=== PATIENT | male | born 1965 | race Caucasian/White ===

== ENCOUNTER 2017-01-03 16:20 | Emergency (ER) | payer OTHER ==
[~2017-01-03] VITALS: Ht 175.3 cm; Wt 77.1 kg
[~2017-01-03 16:20] MED LIST: ABIL5TAB OR; AMBI10TA OR; AMLO10TA PO; DEPA1TAB3 PO; DEPA250C OR; DEPA500T OR; DEPA500T2 OR; DEPAKOTE ER PO; DIAZ10TA2 OR; DOCU10CA PO; EFFE37.527 OR; FLEXERIL; FLUV1INJ6 IM; HCTZ PO; HTCZ; IBUP600T26 PO; KLON1TAB OR; LEVA500T PO; LISI10TA4 OR; LYRI200C PO; LYRI300C OR; LYRI75CA OR; NICO21PAT TD; PERC5TAB6 PO; PRIL40CA OR; PROZ10CA7 PO; TRAM50TA2 OR; TRAZ100T OR; TRAZ50TA4 PO; ULTR50TA PO; VALI10TA OR; VALI5TAB OR; VICO5TAB OR
[2017-01-03 16:21] VITALS: BP 153/95
[2017-01-03] MEDS ORDERED: LISI20TA PO (16:32)
[2017-01-03] MEDS ORDERED: METH10CO PO (16:32)
[2017-01-03] MEDS ORDERED: SOMA350T PO ×2 (16:32→17:01)
[2017-01-03] MEDS ORDERED: LYRI300C PO ×2 (16:32→17:01)
[2017-01-04] MEDS ORDERED: DEPA500T2 PO (10:06)
== END 2017-01-03 17:15 | disposition home or self-care (01) ==
LOC: M ED 17:02
DX: Z76.0 Encounter for issue of repeat prescription (principal); F17.210 Nicotine dependence, cigarettes, uncomplicated; Z79.899 Other long term (current) drug therapy

== ENCOUNTER 2017-01-04 05:48 | Emergency (ER) | payer OTHER ==
[~2017-01-04] VITALS: Ht 177.8 cm; Wt 86.2 kg
[~2017-01-04 05:48] MED LIST changes: +LISI20TA PO; +LYRI300C PO; +METH10CO PO; +SOMA350T PO
[2017-01-04] MEDS ORDERED: LORazepam 2 MG/ML VIAL (J2060) IV STA (05:53)
[2017-01-04 06:18] LABS: BASO # 0.1 K/mm3 (0.0-0.2); BASO % 0.8 % (0.0-1.0); EOS # 0.5 K/mm3 (0.0-0.50); EOS % 5.5 % (0.0-3.0); LARGE UNSTAINED CELL # 0.2 K/mm3 (0.0-0.4); LARGE UNSTAINED CELL % 2.1 % (0.0-4.0); LYMPH # 4.2 K/mm3 (1.5-4.5); LYMPH % 45.8 % (24.0-44.0); MEAN CORPUSCULAR HEMOGLOBIN 27.7 pg (27.0-33.0); MEAN CORPUSCULAR VOLUME 83.9 fl (80.0-96.0); MONO # 0.4 K/mm3 (0.0-0.8); MONO % 4.8 % (0.0-5.0); NEUTROPHILS # 3.6 K/mm3 (1.8-7.7); PLATELET COUNT, AUTOMATED 182 k/mm3 (150-450); RED CELL DISTRIBUTION WIDTH 13.8 % (11.5-14.5); WHITE BLOOD COUNT 8.8 K/mm3 (4.0-10.0)
[2017-01-04 06:37] LABS: ANION GAP 8 MEQ/L (8-16); BLOOD UREA NITROGEN 12 MG/DL (7-18); CALCIUM LEVEL 8.6 MG/DL (8.5-10.1); CARBON DIOXIDE LEVEL 27 MEQ/L (21-32); CHLORIDE LEVEL 107 MEQ/L (98-107); CREATININE FOR GFR 0.95 MG/DL (0.70-1.30); GLOMERULAR FILTRATION RATE > 60.0 (>56); GLUCOSE, FASTING 105 MG/DL (70-105); POTASSIUM SERUM 3.5 MEQ/L (3.5-5.1); SODIUM LEVEL 142 MEQ/L (136-145)
[2017-01-04] MEDS ORDERED: VALPROATE SOD INJ 500 MG in D5W 50 ML IV ONE ×2 (08:30→09:15)
--- NOTE | 2017-01-04 08:31 | REP ---
CT Head without contrast HISTORY: Trauma COMPARISON: 08/20/2015 There is no intraparenchymal hemorrhage, acute infarct, mass or midline shift. The ventricular system is normal in appearance. There is no extra cerebral collection. There is no fracture. The visualized sinuses are clear. IMPRESSION: There is no intracranial lesion. Signed by Shree Devries MD 01/04/2017 08:22 A
--- NOTE | 2017-01-04 08:51 | REP ---
CT CERVICAL SPINE WITHOUT CONTRAST: HISTORY: Trauma. There is no acute fracture or subluxation. Disc bulges are present at the C3-4 and C4-5 levels. The patient is status post C5-T1 anterior spinal fusion. A fixation plate and bone graft material are present. Posterior osteophytes are present at the C5-6 and C6-7 levels. There is minimal narrowing of the spinal canal. Uncinate process and/or facet hypertrophy are present at the C3-4 through C7-T1 levels. These findings produce minimal to mild narrowing of the neural foramina. Calcifications are present in the tonsils. This is secondary to previous inflammatory disease. IMPRESSION: 1. The patient is status post C5-T1 anterior spinal fusion. There is anatomic alignment of the cervical spine. 2. There is cervical spondylosis at the C3-4 through C7-T1 levels. Signed by Shree Devries MD 01/04/2017 08:56 A
[2017-01-04] MEDS ORDERED: VALPROATE SOD INJ 500 MG in D5W MINI-BAG PLUS 50 ML IV ONE (09:15)
[2017-01-04 09:46] LABS: METHADONE URINE NEGATIVE (NEGATIVE)
[2017-01-04] MEDS ORDERED: DEPA500T2 PO (10:06)
[2017-01-04 10:38] VITALS: BP 109/70
== END 2017-01-04 10:40 | disposition home or self-care (01) ==
LOC: EDBD 05:48 → M ED 08:10
DX: G40.909 Epilepsy, unspecified, not intractable, without status epilepticus (principal); G89.4 Chronic pain syndrome; F15.10 Other stimulant abuse, uncomplicated; F12.10 Cannabis abuse, uncomplicated; Z79.899 Other long term (current) drug therapy
CPT/HCPCS: 70450; 72125; 80048; 80164; 80306; 83605; 85025; 96374; 99284; J2060

== ENCOUNTER 2017-02-10 11:40 | Observation (INO) | payer OTHER ==
[~2017-02-10] VITALS: Ht 172.7 cm; Wt 90.8 kg
[~2017-02-10 11:40] MED LIST changes: +DEPA500T2 PO; +IBUP-1022 PO; -IBUP600T26 PO; +LEVA1TAB2 PO; -LEVA500T PO; +PERC5TAB12 PO; -PERC5TAB6 PO; +TRAZ50TA11 PO; -TRAZ50TA4 PO; -ULTR50TA PO; +ULTR50TA8 PO
[2017-02-10 12:30] LABS: BASO % 0.5 % (0.0-1.0); EOS # 0.2 K/mm3 (0.0-0.50); EOS % 2.8 % (0.0-3.0); LARGE UNSTAINED CELL # 0.1 K/mm3 (0.0-0.4); LARGE UNSTAINED CELL % 1.9 % (0.0-4.0); LYMPH # 3.2 K/mm3 (1.5-4.5); LYMPH % 42.8 % (24.0-44.0); MEAN CORPUSCULAR HEMOGLOBIN 28.6 pg (27.0-33.0); MEAN CORPUSCULAR HGB CONC 33.6 g/dl (32.0-36.5); MEAN CORPUSCULAR VOLUME 85.3 fl (80.0-96.0); MONO # 0.3 K/mm3 (0.0-0.8); MONO % 4.1 % (0.0-5.0); NEUTROPHILS # 3.5 K/mm3 (1.8-7.7); NEUTROPHILS % 47.8 % (36.0-66.0); PLATELET COUNT, AUTOMATED 262 k/mm3 (150-450); RED CELL DISTRIBUTION WIDTH 13.6 % (11.5-14.5); WHITE BLOOD COUNT 7.4 K/mm3 (4.0-10.0)
[2017-02-10 13:00] LABS: ALBUMIN 3.3 GM/DL (3.2-5.2); ALBUMIN/GLOBULIN RATIO 1.03 (1.00-1.93); ALKALINE PHOSPHATASE 79 U/L (45-117); ALT/SGPT 21 U/L (12-78); ANION GAP 6 MEQ/L (8-16); AST/SGOT 20 U/L (15-37); BILIRUBIN,DIRECT 0.1 MG/DL (0.0-0.2); BILIRUBIN,TOTAL 0.8 MG/DL (0.2-1.0); BLOOD UREA NITROGEN 10 MG/DL (7-18); CALCIUM LEVEL 8.3 MG/DL (8.5-10.1); CARBON DIOXIDE LEVEL 31 MEQ/L (21-32); CHLORIDE LEVEL 103 MEQ/L (98-107); CREATININE FOR GFR 1.26 MG/DL (0.70-1.30); GLOMERULAR FILTRATION RATE > 60.0 (>56); GLUCOSE, FASTING 90 MG/DL (70-105); POTASSIUM SERUM 3.4 MEQ/L (3.5-5.1); SODIUM LEVEL 140 MEQ/L (136-145); TOTAL PROTEIN 6.5 GM/DL (6.4-8.2)
--- NOTE | 2017-02-10 13:35 | REP ---
REASON: Drug overdose. COMPARISON: Multiple latest 11/09/2015. The technique utilized in obtaining the radiograph has magnified the cardiac silhouette and accentuated the interstitial markings. Cardiomediastinal silhouette is unchanged. The lung fox are unchanged. No acute patchy parenchymal opacities or pleural effusions have developed. There is no change in the osseous structures. IMPRESSION: Stable chest without plain radiographic evidence of acute cardiopulmonary disease. Signed by Rome Sandhu DO 02/10/2017 03:23 P
[2017-02-10] MEDS ORDERED: DIVA500T3 PO (18:24)
[2017-02-10] MEDS ORDERED: LYRI300C PO (18:24)
[2017-02-10] MEDS ORDERED: ACETAMINOPHEN TAB 650MG DOSE (2X325MG) PO PRN (18:30)
[2017-02-10] MEDS ORDERED: ONDANSETRON 4MG/2ML VIAL (J2405) IV PRN (18:30)
[2017-02-10 18:53] LABS: METHADONE URINE NEGATIVE (NEGATIVE)
[2017-02-10] MEDS: PANTOPRAZOLE 40MG INJ (PROTONIX) (C9113) IV SCH (19:21)
[2017-02-10] MEDS: KCL 20MEQ in NS 1000ML 1,000 ML IV SCH (19:22)
--- NOTE | 2017-02-10 19:26 | REP ---
CT Head without contrast HISTORY: Altered mental status COMPARISON: 01/04/2017 There is no intraparenchymal hemorrhage, acute infarct, mass or midline shift. The ventricular system is normal in appearance. There is no extra cerebral collection. There is no fracture. The visualized sinuses are clear. IMPRESSION: There is no intracranial lesion. Signed by Shree Devries MD 02/10/2017 07:18 P
[2017-02-10 20:15] VITALS: BP 115/71
--- NOTE | 2017-02-10 20:26 | HPE ---
DATE OF ADMISSION: 02/10/2017 PRIMARY CARE PROVIDER: None listed. CHIEF COMPLAINT: Altered mental status secondary to drug overdose. HISTORY OF PRESENT ILLNESS: Mr. Harris is a 51-year-old male with multiple past medical history including chronic opioid, cannabis and polysubstance abuse who presented to the emergency room (ER) due to experiencing altered mental status secondary to medication. The patient expressed that he had taken about four Soma; however, the patient was not on Soma and based on the ER report, the patient has taken this medication from somebody else. The patient also denied taking any other drugs. According to him, the patient had become more altered mental status, and his mother who lives with him called the ambulance. Due to patient's altered mental status, we have a limited history of present illness. PAST MEDICAL HISTORY: 1. Hypertension. 2. History of seizure disorder. 3. Polysubstance abuse. 4. Depression. 5. History of priapism. 6. Mood disorder. 7. Chronic back pain. 8. History of acute renal failure. 9. History of rhabdomyolysis. 10. History of sepsis. 11. History of pneumonia, possibly secondary to aspiration with interstitial infiltration. 12. History of altered mental status with metabolic encephalopathy. PAST SURGICAL HISTORY: 1. Cervical plate placement. 2. Hernia repair. HOME MEDICATIONS: - divalproex sodium 1000 mg by mouth twice a day - Lyrica 300 mg by mouth three times a day ALLERGIES: NON-STEROIDAL ANTI-INFLAMMATORY DRUGS (NSAIDS). SOCIAL HISTORY: The patient lives with his mother. The patient has three children who are healthy. The patient smoked about a pack for many years. However, the patient does not know how many years. The patient expressed that he drinks occasionally. The patient denies illicit drug use; however, based on the history, the patient has a polysubstance abuse history. FAMILY HISTORY: The patient expressed that he has four brothers who are healthy. The patient's father ; however, the patient does not know what is the reason that he . The patient's mother is healthy. REVIEW OF SYSTEMS: GENERAL: The patient denies fevers, chills, night sweats, weight loss, weight gain. HEENT: The patient denies acute vision or hearing changes. The patient denies problem with chewing food or sinusitis. NECK: The patient denies lumps, bumps or decreased range of motion of his neck. HEART: The patient denies palpitations, racing or skipping heart beats, chest pain. LUNGS: The patient denies shortness of breath or wheezing or coughing. ABDOMEN: The patient denies abdominal pain, nausea, vomiting, diarrhea, constipation, melena, hematochezia, hemoptysis. NEUROLOGIC: The patient denies history of transient ischemic attack (TIA), cerebrovascular accident (CVA) or seizure-type activity. PHYSICAL EXAMINATION: VITAL SIGNS: Temperature 98.3, pulse 81, respiratory rate 12, blood pressure 120/72, pulse oximetry 93% on room air. GENERAL: The patient was awake, alert, but only oriented to place, but not time or person. HEENT: Normocephalic, atraumatic. Pupils are pinpoint. Also, the patient's speech is sluggish. Oral mucosa was moist. NECK: Soft, no lymphadenopathy, no thyromegaly. HEART: Regular rate and rhythm. Normal S1, S2. ABDOMEN: Soft, nontender. Positive bowel sounds in all quadrants. LUNGS: Clear breath sounds bilaterally. Good air movement. EXTREMITIES: No lower extremity edema. Plus two pulses in both lower extremities. The patient has normal range of motion both upper and lower extremities. NEUROLOGIC: Cranial nerves II through XII intact. No focal deficiency. LABORATORY DATA: White blood cells 7.4, red blood cells 4.75, hemoglobin 13.6, hematocrit 40.5, MCV 85.3, MCH 28.6, MCHC 33.6, RDW 13.6, platelet count 262. Neutrophil percentage 47.8, lymphocyte percentage 42.8, monocyte percentage 4.1, eosinophil percentage 2.8, basophil percentage 0.5, leukocyte percentage 1.9. Sodium 140, potassium 3.4, chloride 103, carbon dioxide 31, anion gap 6, BUN 10, creatinine 1.26, GFR greater than 60, fasting glucose 90, calcium 8.3, total bilirubin 0.8, direct bilirubin 0.1, AST 20, ALT 21, alkaline phosphatase 30. Total creatine kinase 313. Total protein 6.5, albumin 3.3. TSH 1.01. Toxicology pending at this time. IMAGING: Chest x-ray shows stable chest without radiological evidence of acute cardiopulmonary disease and it was compared with a chest x-ray which was done on 11/09/2015. ASSESSMENT AND PLAN: 1. Altered mental status. This is possible secondary to Soma however patient has history of polysubstance abuse and the urine tox is pending at this time. ER has contacted poison control who recommended the patient to be observed. At this time, we will make the patient nothing by mouth and start the patient on intravenous (IV) fluids due to possible risk of aspiration. Also, I have ordered a CT of the head without contrast and I have not started the patient on anticoagulation until we get the result from the CT of the head. Also, toxicology is pending at this time. We will continue to monitor patient for any abnormal symptoms. 2. Hypokalemia. At this time, we have started the patient on IV fluids with potassium 20 mEq. We will continue monitoring the patient's potassium level. 3. Elevation of creatinine. This is possibly secondary to dehydration. The patient is on IV fluid. We will continue monitoring the patient's creatinine level. 4. History of seizure disorder. We will continue patient on Keppra 1000 mg by mouth twice a day. 5. Deep venous thrombosis (DVT) prophylaxis. The patient is on thromboembolism deterrent stockings (TEDs) and sequentials until we receive the results for the CT of the head. 6. History of hypertension. At this time, the patient's blood pressure is stable. 7. Chronic back and neck pain. At home the patient is on Lyrica. However, we have stopped Lyrica due to altered mental status. At this time, the patient is stable. We will continue the patient on acetaminophen. 8. Gastrointestinal (GI) prophylaxis. The patient is on Protonix IV. My preceptor for this patient encounter was Dr. Shree Smith. The preceptor was physically present in the building during the encounter and was fully available as needed. All aspects of the patient interview, examination, medical decision making process, and medical care plan development were reviewed and approved by the preceptor. The preceptor is aware and concurs with the plan as stated in the body of this note and will attest to such by his/her co-signature. JOE
[2017-02-10] MEDS: DIVALPROEX 500 MG TAB PO SCH (20:31)
[2017-02-10] MEDS ORDERED: HEPARIN SOD (PORCINE) 5000 UNITS/ML VIAL SC SCH (21:00)
[2017-02-11 00:03] VITALS: BP 116/72
[2017-02-11 04:16] VITALS: BP 124/77
[2017-02-11 06:15] LABS: BASO % 0.6 % (0.0-1.0); EOS # 0.2 K/mm3 (0.0-0.50); EOS % 3.8 % (0.0-3.0); LARGE UNSTAINED CELL # 0.1 K/mm3 (0.0-0.4); LARGE UNSTAINED CELL % 2.5 % (0.0-4.0); LYMPH # 2.4 K/mm3 (1.5-4.5); MEAN CORPUSCULAR HEMOGLOBIN 28.4 pg (27.0-33.0); MEAN CORPUSCULAR HGB CONC 33.4 g/dl (32.0-36.5); MEAN CORPUSCULAR VOLUME 85.3 fl (80.0-96.0); MONO # 0.2 K/mm3 (0.0-0.8); MONO % 4.6 % (0.0-5.0); NEUTROPHILS # 2.3 K/mm3 (1.8-7.7); NEUTROPHILS % 44.5 % (36.0-66.0); PLATELET COUNT, AUTOMATED 226 k/mm3 (150-450); RED CELL DISTRIBUTION WIDTH 13.9 % (11.5-14.5); WHITE BLOOD COUNT 5.2 K/mm3 (4.0-10.0)
[2017-02-11 06:58] LABS: ALBUMIN/GLOBULIN RATIO 0.94 (1.00-1.93); ALKALINE PHOSPHATASE 78 U/L (45-117); ALT/SGPT 17 U/L (12-78); ANION GAP 6 MEQ/L (8-16); AST/SGOT 18 U/L (15-37); BILIRUBIN,TOTAL 0.6 MG/DL (0.2-1.0); BLOOD UREA NITROGEN 7 MG/DL (7-18); CALCIUM LEVEL 8.3 MG/DL (8.5-10.1); CARBON DIOXIDE LEVEL 27 MEQ/L (21-32); CHLORIDE LEVEL 108 MEQ/L (98-107); CREATININE FOR GFR 1.02 MG/DL (0.70-1.30); GLOMERULAR FILTRATION RATE > 60.0 (>56); GLUCOSE, FASTING 92 MG/DL (70-105); MAGNESIUM LEVEL 1.9 MG/DL (1.8-2.4); SODIUM LEVEL 141 MEQ/L (136-145); TOTAL PROTEIN 6.2 GM/DL (6.4-8.2)
[2017-02-11] MEDS: KCL 20MEQ in NS 1000ML 1,000 ML IV SCH (07:04)
--- NOTE | 2017-02-11 07:33 | ECGEPIP ---
Stationary ECG Study [facility] - ED Test Date: 2017-02-10 Pat Name: MAGY RIVAS Department: Room: - Gender: M [employer]: red : 1965 Requested By: CHANDU Walker Order Number: [id number] Reading MD: Marielos Molina Measurements Intervals [place] Rate: 81 P: 22 AL: 152 QRS: 3 QRSD: 98 T: 75 QT: 408 QTc: 475 Interpretive Statements SINUS RHYTHM INFERIOR MYOCARDIAL INFARCTION, PROBABLY OLD NSTTW ABNORMALITY SIMILAR 11/09/15 Electronically Signed On 02-11-2017 7:33:04 EDT by Marielos Molina
[2017-02-11] MEDS: PREGABALIN 100 MG CAP (LYRICA) PO SCH ×3 (09:00→21:18)
[2017-02-11] MEDS: DIVALPROEX 500 MG TAB PO SCH ×2 (09:27→21:17)
[2017-02-11 11:00] VITALS: BP 150/98
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
[2017-02-11 14:00] VITALS: BP 158/98
[2017-02-11] MEDS: NICOTINE 21MG/24HR 1 EA TRANSDERMAL TD SCH (17:21)
[2017-02-11] MEDS: PANTOPRAZOLE 40MG INJ (PROTONIX) (C9113) IV SCH (19:41)
[2017-02-11 22:00] VITALS: BP 125/70
[2017-02-11] MEDS ORDERED: oxyCODONE 5MG TAB PO ONE (23:15)
[2017-02-12 05:44] LABS: BASO % 0.8 % (0.0-1.0); EOS # 0.2 K/mm3 (0.0-0.50); LARGE UNSTAINED CELL # 0.1 K/mm3 (0.0-0.4); LARGE UNSTAINED CELL % 2.1 % (0.0-4.0); LYMPH # 2.2 K/mm3 (1.5-4.5); LYMPH % 38.2 % (24.0-44.0); MEAN CORPUSCULAR HEMOGLOBIN 28.6 pg (27.0-33.0); MEAN CORPUSCULAR HGB CONC 33.5 g/dl (32.0-36.5); MEAN CORPUSCULAR VOLUME 85.4 fl (80.0-96.0); MONO # 0.3 K/mm3 (0.0-0.8); MONO % 5.1 % (0.0-5.0); NEUTROPHILS # 2.7 K/mm3 (1.8-7.7); NEUTROPHILS % 49.7 % (36.0-66.0); PLATELET COUNT, AUTOMATED 241 k/mm3 (150-450); RED CELL DISTRIBUTION WIDTH 13.8 % (11.5-14.5); WHITE BLOOD COUNT 5.5 K/mm3 (4.0-10.0)
[2017-02-12 05:56] LABS: ALBUMIN 2.8 GM/DL (3.2-5.2); ALKALINE PHOSPHATASE 71 U/L (45-117); ALT/SGPT 17 U/L (12-78); ANION GAP 8 MEQ/L (8-16); AST/SGOT 13 U/L (15-37); BILIRUBIN,TOTAL 0.2 MG/DL (0.2-1.0); BLOOD UREA NITROGEN 6 MG/DL (7-18); CALCIUM LEVEL 8.7 MG/DL (8.5-10.1); CARBON DIOXIDE LEVEL 26 MEQ/L (21-32); CHLORIDE LEVEL 110 MEQ/L (98-107); CREATININE FOR GFR 1.04 MG/DL (0.70-1.30); GLOMERULAR FILTRATION RATE > 60.0 (>56); GLUCOSE, FASTING 125 MG/DL (70-105); MAGNESIUM LEVEL 1.9 MG/DL (1.8-2.4); POTASSIUM SERUM 3.7 MEQ/L (3.5-5.1); SODIUM LEVEL 144 MEQ/L (136-145); TOTAL PROTEIN 5.9 GM/DL (6.4-8.2)
[2017-02-12 06:00] VITALS: BP_SYST 125; BP_SYST 174; BP_DIAS 63; BP_DIAS 70
[2017-02-12] MEDS ORDERED: oxyCODONE 5MG TAB PO ONE (06:00)
[2017-02-12] MEDS ORDERED: NORC1TAB4 PO (08:20)
[2017-02-12] MEDS: NICOTINE 21MG/24HR 1 EA TRANSDERMAL TD SCH (10:27)
[2017-02-12] MEDS: DIVALPROEX 500 MG TAB PO SCH (10:27)
[2017-02-12] MEDS: PREGABALIN 100 MG CAP (LYRICA) PO SCH (10:27)
--- NOTE | 2017-02-12 13:55 | DSES ---
DATE OF ADMISSION: 02/10/2017 DATE OF DISCHARGE: 02/12/2017 Primary care provider at the [facility], has not seen any doctor yet and has an appointment for 02/17/2017. DISCHARGE DIAGNOSES: 1. Acute toxic metabolic encephalopathy due to overdose with Soma. 2. Nonsuicidal drug overdose. 3. Polysubstance abuse. Urine toxicology positive for opiate, cocaine, marijuana. 4. Epilepsy. 5. Chronic back pain and neck pain. 7. Hypertension. 8. Mood disorder. 9. Depression. DISCHARGE MEDICATIONS: - divalproex sodium 1000 mg by mouth twice a day - Lyrica 300 mg by mouth three times a day - acetaminophen/hydrocodone 5/325 one tablet by mouth every 6 hours as needed, pain HOSPITAL COURSE: This is a 51-year-old male who recently returned from [place], was down in [place] for 4 months and returned at the end of December. He had gone down there for second evaluation for his back pain and was following with a doctor there. He was getting his pain medications, which was hydrocodone 7.5 mg , six tablets a day, from a doctor in [place]. He came back up in [facility] and ran out of his pain medications. He was seen in the emergency room and he was given his prescription for his divalproex and his Lyrica, and a few pain medications to last him for 3 or 4 days. However, he then ran out of the medications again and he was getting pain medications from his friends and also off the street. He got some Soma from his friend and took 4-5 pills of the Soma to help with the back pain, then was noted to be confused and sedated and was brought to the emergency room. In the emergency department (ED) , Poison Control was contacted and they recommended observation for 6 hours. However, after 6 hours of observation, patient still remained extremely sedated so was admitted to the hospital for observation. Subsequently, patient 's mental status improved within the next 24 hours and he was back to his baseline function and mental status. He complained of back pain and he was given one dose of Percocet, which helped with his pain. I-STOP was checked and it was seen that his last opiate prescription was from 2015. He did have some Soma, Lyrica prescriptions in December and January of this year. When I questioned him in detail regarding his positive opiate screen, he said he had hydrocodone from his [place] doctor, which he was taken, but he run out of it. So he was given a 5 day prescription for hydrocodone to last him until his appointment with his primary care provider on 02/17/2017. At present, his vital signs are stable. He does not have any complaints and he is at his functional baseline. So he is going to be discharged home. PHYSICAL EXAMINATION: VITAL SIGNS: Temperature 97.3, pulse 72, respiratory rate 18, blood pressure 174/63, pulse oximetry 96% on room air. GENERAL: Patient awake, alert, oriented times three, lying down in bed, in no acute distress. HEENT: Normocephalic, atraumatic. Moist mucous membranes. Anicteric eyes. CHEST: Clear to auscultation. CARDIOVASCULAR: S1, S2, regular. No rub, murmur or gallop. ABDOMEN: Soft, nontender. Bowel sounds present. EXTREMITIES: No edema. LABORATORY DATA: WBC 5.5, hemoglobin 13, platelet 241. Sodium 144, potassium 3.7, chloride 110, bicarbonate 26, BUN 6, creatinine 1.04, glucose 125. Liver function tests are normal. Urine toxicology was positive for opiates, cocaine and cannabis. CT head was negative. DISPOSITION: Patient is discharged home in stable condition. DISCHARGE INSTRUCTIONS: Patient to followup with primary care provider on 02/17/2017. Regular diet. Activity as tolerated. MTDD
[2017-07-11] MEDS ORDERED: PERC5TAB12 PO (14:13)
== END 2017-02-12 10:50 | disposition home health service (06) ==
LOC: EDBD 11:40 → EDUNIT# 11:40 → M ED 14:54 → M ED INP 18:46 → M MS5PR 02-11 10:50
PROVIDERS: ADMIT Internal Medicine; ATTEND Internal Medicine Nephrology
DX: T42.8X1A Poisoning by antiparkinsonism drugs and other central muscle-tone depressants, accidental (unintentional), initial encounter (principal); G92 Toxic encephalopathy; Y92.89 Other specified places as the place of occurrence of the external cause; F19.10 Other psychoactive substance abuse, uncomplicated; G40.909 Epilepsy, unspecified, not intractable, without status epilepticus; M54.9 Dorsalgia, unspecified; G89.29 Other chronic pain; E87.6 Hypokalemia; I10 Essential (primary) hypertension; F32.9 Major depressive disorder, single episode, unspecified; Z79.899 Other long term (current) drug therapy; Z88.8 Allergy status to other drugs, medicaments and biological substances; F17.210 Nicotine dependence, cigarettes, uncomplicated; Z86.19 Personal history of other infectious and parasitic diseases

== ENCOUNTER 2017-02-22 08:57 | Emergency (ER) | payer OTHER ==
[~2017-02-22] VITALS: Ht 175.3 cm; Wt 194.0 kg
[~2017-02-22 08:57] MED LIST changes: +DIVA500T3 PO; -IBUP-1022 PO; +IBUP600T26 PO; -LEVA1TAB2 PO; +LEVA500T PO; +NORC1TAB4 PO; -PERC5TAB12 PO; +PERC5TAB6 PO; -TRAZ50TA11 PO; +TRAZ50TA4 PO; +ULTR50TA PO; -ULTR50TA8 PO
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
[2017-02-22 11:10] LABS: BASO # 0.1 K/mm3 (0.0-0.2); BASO % 0.9 % (0.0-1.0); EOS # 0.2 K/mm3 (0.0-0.50); EOS % 2.6 % (0.0-3.0); LARGE UNSTAINED CELL # 0.2 K/mm3 (0.0-0.4); LARGE UNSTAINED CELL % 2.1 % (0.0-4.0); LYMPH # 2.4 K/mm3 (1.5-4.5); LYMPH % 29.1 % (24.0-44.0); MEAN CORPUSCULAR HEMOGLOBIN 28.9 pg (27.0-33.0); MEAN CORPUSCULAR HGB CONC 33.5 g/dl (32.0-36.5); MEAN CORPUSCULAR VOLUME 86.3 fl (80.0-96.0); MONO # 0.4 K/mm3 (0.0-0.8); MONO % 4.6 % (0.0-5.0); NEUTROPHILS % 60.7 % (36.0-66.0); PLATELET COUNT, AUTOMATED 256 k/mm3 (150-450); RED CELL DISTRIBUTION WIDTH 13.7 % (11.5-14.5); WHITE BLOOD COUNT 8.3 K/mm3 (4.0-10.0)
[2017-02-22 11:40] LABS: ANION GAP 4 MEQ/L (8-16); BLOOD UREA NITROGEN 5 MG/DL (7-18); CALCIUM LEVEL 9.1 MG/DL (8.5-10.1); CARBON DIOXIDE LEVEL 29 MEQ/L (21-32); CHLORIDE LEVEL 110 MEQ/L (98-107); CREATININE FOR GFR 0.89 MG/DL (0.70-1.30); GLOMERULAR FILTRATION RATE > 60.0 (>56); GLUCOSE, FASTING 106 MG/DL (70-105); METHADONE URINE NEGATIVE (NEGATIVE); POTASSIUM SERUM 3.9 MEQ/L (3.5-5.1); SODIUM LEVEL 143 MEQ/L (136-145)
[2017-02-22] MEDS ORDERED: DIVALPROEX 500 MG TAB PO ONE (12:30)
[2017-02-22] MEDS ORDERED: PREGABALIN 100 MG CAP (LYRICA) PO ONE (12:30)
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
[2017-02-22 13:03] VITALS: BP 191/113
[2017-02-22] MEDS ORDERED: LISI20TA PO (23:23)
[2017-02-23] MEDS ORDERED: NORC1TAB4 PO (02:50)
== END 2017-02-22 13:04 | disposition home or self-care (01) ==
LOC: M ED 09:46
DX: Z76.0 Encounter for issue of repeat prescription (principal); R25.8 Other abnormal involuntary movements; T42.0X6A Underdosing of hydantoin derivatives, initial encounter; M54.9 Dorsalgia, unspecified; G40.909 Epilepsy, unspecified, not intractable, without status epilepticus; I10 Essential (primary) hypertension; F41.9 Anxiety disorder, unspecified; F32.9 Major depressive disorder, single episode, unspecified; R51 Headache; N48.30 Priapism, unspecified; F17.200 Nicotine dependence, unspecified, uncomplicated

== ENCOUNTER 2017-02-22 23:00 | Inpatient (IN) | payer OTHER ==
[~2017-02-22] VITALS: Ht 175.3 cm; Wt 92.1 kg
[2017-02-22] MEDS ORDERED: LISI20TA PO (23:23)
[2017-02-22 23:57] LABS: MEAN CORPUSCULAR HEMOGLOBIN 28.9 pg (27.0-33.0); MEAN CORPUSCULAR HGB CONC 34.5 g/dl (32.0-36.5); RED CELL DISTRIBUTION WIDTH 13.7 % (11.5-14.5)
[2017-02-23 00:27] LABS: METHADONE URINE NEGATIVE (NEGATIVE)
[2017-02-23 00:36] LABS: ALBUMIN 3.5 GM/DL (3.2-5.2); ALBUMIN/GLOBULIN RATIO 1.13 (1.00-1.93); ALKALINE PHOSPHATASE 80 U/L (45-117); ALT/SGPT 22 U/L (12-78); ANION GAP 8 MEQ/L (8-16); AST/SGOT 17 U/L (15-37); BILIRUBIN,DIRECT < 0.1 MG/DL (0.0-0.2); BILIRUBIN,TOTAL 0.3 MG/DL (0.2-1.0); BLOOD UREA NITROGEN 9 MG/DL (7-18); CALCIUM LEVEL 8.5 MG/DL (8.5-10.1); CARBON DIOXIDE LEVEL 27 MEQ/L (21-32); CHLORIDE LEVEL 109 MEQ/L (98-107); GLOMERULAR FILTRATION RATE > 60.0 (>56); GLUCOSE, FASTING 120 MG/DL (70-105); POTASSIUM SERUM 3.9 MEQ/L (3.5-5.1); SODIUM LEVEL 144 MEQ/L (136-145); TOTAL PROTEIN 6.6 GM/DL (6.4-8.2)
[2017-02-23] MEDS ORDERED: MOM 30ML SUSPENSION UDC PO PRN (02:30)
[2017-02-23] MEDS ORDERED: MAALOX 30 ML SUSP *UDC PO PRN (02:30)
[2017-02-23] MEDS ORDERED: NORC1TAB4 PO (02:50)
[2017-02-23] MEDS ORDERED: NORCO, ANEXSIA 5/325MG TABLET (HYDROcodone/ACETAMINOPHEN) PO ONE (03:00)
[2017-02-23 03:11] VITALS: BP 147/96
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
[2017-02-23] MEDS: hydroCHLOROthiazide 12.5 MG CAPSULE PO SCH (10:34)
[2017-02-23] MEDS: PREGABALIN 100 MG CAP (LYRICA) PO SCH ×3 (10:35→21:40)
[2017-02-23] MEDS: DIVALPROEX 500 MG TAB PO SCH ×2 (10:35→21:40)
[2017-02-23] MEDS: NICOTINE 21MG/24HR 1 EA TRANSDERMAL TD SCH (10:35)
[2017-02-23] MEDS: SERTRALINE HCL 50 MG TAB PO SCH (11:52)
[2017-02-23 18:00] VITALS: BP 130/78
[2017-02-23] MEDS: ACETAMINOPHEN TAB 650MG DOSE (2X325MG) PO PRN (19:07)
--- NOTE | 2017-02-23 20:36 | MHHPE ---
DATE OF ADMISSION: 02/23/2017 LEGAL STATUS ON ADMISSION: 9.39 legal status. CHIEF COMPLAINT: "I have been feeling very depressed and I have suicidal thoughts." HISTORY OF PRESENT ILLNESS: 51-year-old male with a history of depression and polysubstance dependency, admitted to our unit on a 9.39 legal status. According to the chart, the patient states that he has been feeling very depressed and was thinking about overdosing. The patient has a history of severe overdose in the past. He reported to the emergency room that he went to [place] to seek help for his pain and since he has returned he has been homeless. He states that he cannot comply with the [facility] requirements, that [facility] placed him a hotel outside town and wanted him to report daily and that he has no transportation and has not been able to follow through. His mother has been helping him staying a few days, but he stated, "she is not supposed to do so." The patient also reported that he has been without food for four days. The patient was unable to contract for safety and as above, he was thinking about overdosing. During the interview today, the patient is cooperative during the interview. The patient reports feeling depressed with low energy, feeling hopeless and helpless and having suicidal thoughts. There is no evidence of psychotic symptoms. No auditory or visual hallucinations or delusions. The patient is requesting to have medication for pain. PAST MEDICAL HISTORY: Back pain status post reconstructive surgery. PAST PSYCHIATRIC HISTORY: As above, the patient has been diagnosed with depression. Has a history of severe overdose in the past. History of polysubstance dependency. FAMILY HISTORY: Noncontributory. SOCIAL HISTORY: The patient was born in [place]. He was raised in [place] by his parents. He is the oldest of seven brothers. He dropped out of school in the 11th grade. 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 Has no history of physical or sexual abuse. SUBSTANCE ABUSE HISTORY: The patient has a history of polysubstance abuse, including opiates, cocaine and cannabinoids. REVIEW OF SYSTEMS: CONSTITUTIONAL: No weight loss, fever, chills, weakness or fatigue. HEENT: No visual loss, blurry vision, double vision or yellow sclerae. No hearing loss, sneezing, congestion, runny nose or sore throat. SKIN: No rash or itching. CARDIOVASCULAR: No chest pain, chest pressure, chest discomfort, palpitations, or edema. RESPIRATORY: No shortness of breath, cough or sputum. GASTROINTESTINAL: No anorexia, nausea, vomiting, or diarrhea. No abdominal pain or blood. GENITOURINARY: No burning or pain on urination. NEUROLOGIC: No headaches, dizziness, syncope, paralysis, ataxia, numbness or tingling. MUSCULOSKELETAL: No muscle, back pain, joint pain or stiffness. HEMATOLOGIC: No anemia, bleeding or bruising. LYMPHATICS: No history of splenectomy. ENDOCRINOLOGIC: No reports of sweating, cold or heat intolerance. No polyuria or polydipsia. ALLERGIES: No history of asthma, hives, eczema or rhinitis. PHYSICAL EXAMINATION: As per physician's human resources assistant. LABORATORY DATA: At admission: Complete blood count (CBC) shows a hemoglobin of 13.4, hematocrit of 38.8. CMP is unremarkable. TSH within normal limits. UDS was positive for cannabis. Blood alcohol level is negative. MENTAL STATUS EXAMINATION: The patient is dressed in [facility]. The patient is cooperative during the interview. Speech is soft and monotone. Has poor eye contact. Mood is depressed and anxious. Affect is restricted. The patient is oriented to time, place, person and situation. Maintains attention and concentration correctly. Instant recall, recent and remote memory are intact. Thought processes are coherent, logical and goal directed. The patient does not have auditory or visual hallucinations. The patient does not have paranoid, persecutory, somatic, grandiose or synagogue delusions. The patient reports suicidal ideation. Denies homicidal thoughts. Judgment and insight are limited. DIAGNOSES: AXIS I: Unspecified depressive disorder. Rule out major depressive disorder. Rule out substance induced mood disorder. Polysubstance dependency by history. AXIS II: Deferred. AXIS III: Grand mal seizures and chronic pain. INITIAL TREATMENT PLAN: Patient was admitted on a 9.39 legal status. Complete history was obtained. With his permission, family will be contacted, and database will be expanded. His medication regimen will be reviewed and changed accordingly. He will be provided with protected environment. He will be treated with individual, group, and milieu therapies. He will also receive supportive psychoeducation. Discharge planning will commence immediately. Length of stay will be between 7 to 10 days. Outpatient followup will be strongly recommended. The treatment plan will focus initially on depression, risk for suicide and substance abuse.
[2017-02-23] MEDS: LISINOPRIL 20 MG TAB PO SCH (21:40)
[2017-02-23] MEDS: traZODone 50 MG TAB PO PRN (23:07)
[2017-02-24 06:42] VITALS: BP 133/96
[2017-02-24] MEDS: DIVALPROEX 500 MG TAB PO SCH ×2 (08:44→21:22)
[2017-02-24] MEDS: PREGABALIN 100 MG CAP (LYRICA) PO SCH ×3 (08:44→21:22)
[2017-02-24] MEDS: SERTRALINE HCL 50 MG TAB PO SCH (08:44)
[2017-02-24] MEDS: hydroCHLOROthiazide 12.5 MG CAPSULE PO SCH (08:44)
[2017-02-24] MEDS: NICOTINE 21MG/24HR 1 EA TRANSDERMAL TD SCH (08:45)
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
[2017-02-24] MEDS: ACETAMINOPHEN TAB 650MG DOSE (2X325MG) PO PRN (16:10)
[2017-02-24 18:00] VITALS: BP 134/73
[2017-02-24] MEDS: LISINOPRIL 20 MG TAB PO SCH (21:23)
[2017-02-24] MEDS: traZODone 50 MG TAB PO PRN (22:24)
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
[2017-02-25 06:36] VITALS: BP 133/74
[2017-02-25] MEDS: SERTRALINE HCL 50 MG TAB PO SCH (09:08)
[2017-02-25] MEDS: NICOTINE 21MG/24HR 1 EA TRANSDERMAL TD SCH (09:08)
[2017-02-25] MEDS: PREGABALIN 100 MG CAP (LYRICA) PO SCH ×3 (09:08→21:58)
[2017-02-25] MEDS: hydroCHLOROthiazide 12.5 MG CAPSULE PO SCH (09:08)
[2017-02-25] MEDS: DIVALPROEX 500 MG TAB PO SCH ×2 (09:09→21:58)
[2017-02-25] MEDS: ACETAMINOPHEN TAB 650MG DOSE (2X325MG) PO PRN (15:49)
[2017-02-25 18:12] VITALS: BP 138/66
[2017-02-25] MEDS: LISINOPRIL 20 MG TAB PO SCH (21:58)
[2017-02-25] MEDS: traZODone 50 MG TAB PO PRN (23:03)
[2017-02-26 06:29] VITALS: BP 138/70
--- NOTE | 2017-02-26 07:35 | IPN ---
DATE: 02/25/2017 A 51-year-old male with a history of depression and polysubstance dependency, admitted for depression and suicidal ideation. The patient was planning to overdose. SUBJECTIVE: "I have a lot of pain." OBJECTIVE: No major changes. The patient reports feeling depressed because of his pain. Pain clinic has given recommendation and does not recommend the use of opiates. The patient does not have auditory or visual hallucinations or delusions. The patient is able to contract for safety while in the hospital. MENTAL STATUS EXAMINATION: The patient is dressed in [facility]. The patient is calm and cooperative, has poor eye contact. Speech is slow and monotone. Mood is depressed and anxious. Affect is restricted. No evidence of delusions or hallucinations. Memory, attention and concentration are fair. The patient is able to contract for safety while in the hospital. Insight and judgment is limited. ASSESSMENT: 1. Depression. 2. Suicidal ideation. 3. Polysubstance dependency. PLAN: 1. Continue with Depakote 1000 mg by mouth twice a day. 2. Continue with Zoloft 50 mg by mouth every morning. 3. Continue with trazodone 50 mg by mouth nightly as needed for insomnia. 4. Continue medication management, individual and group therapy.
[2017-02-26] MEDS: DIVALPROEX 500 MG TAB PO SCH ×2 (08:21→21:32)
[2017-02-26] MEDS: NICOTINE 21MG/24HR 1 EA TRANSDERMAL TD SCH (08:21)
[2017-02-26] MEDS: SERTRALINE HCL 50 MG TAB PO SCH (08:21)
[2017-02-26] MEDS: PREGABALIN 100 MG CAP (LYRICA) PO SCH ×3 (08:21→21:31)
[2017-02-26] MEDS: hydroCHLOROthiazide 12.5 MG CAPSULE PO SCH (08:21)
[2017-02-26 09:23] VITALS: BP 138/70
[2017-02-26] MEDS: ACETAMINOPHEN TAB 650MG DOSE (2X325MG) PO PRN (13:21)
[2017-02-26] MEDS ORDERED: ANALGESIC BALM CRM 120 GM TOP PRN (16:00)
[2017-02-26 18:00] VITALS: BP 133/83
--- NOTE | 2017-02-26 18:24 | IPN ---
DATE: 02/26/2017 51-year-old male with history of depression and polysubstance dependency admitted for depression and suicidal ideation. Patient was planning to overdose. SUBJECTIVE: "I'm not better." OBJECTIVE: Patient reports depression and complains of significant pain. Patient appears frustrated with the decision of the pain clinic. Patient does not have auditory or visual hallucinations or delusions. Patient interacts minimally with other patients and has tendency to stay in his room. MENTAL STATUS EXAMINATION: Patient is dressed in [facility]. Patient is cooperative, has poor eye contact. His speech is slow and monotone. Patient is depressed. Affect is restricted. No evidence of delusions or hallucinations. Memory, attention, and concentration are fair. Patient is able to contract for safety during his hospitalization. Insight and judgment is limited. ASSESSMENT: 1. Depression. 2. Suicidal ideation. 3. Polysubstance dependency. PLAN: 1. Continue Depakote 1000 mg by mouth twice a day. 2. Continue with Zoloft 50 mg by mouth every morning. 3. Continue with trazodone 50 mg by mouth nightly as needed for insomnia. 4. Continue medication management, individual and group therapy.
[2017-02-26] MEDS: traZODone 50 MG TAB PO PRN (21:31)
[2017-02-26 21:32] VITALS: BP 157/85
[2017-02-26] MEDS: LISINOPRIL 20 MG TAB PO SCH (21:32)
[2017-02-26 21:35] VITALS: BP 157/85
[2017-02-27 07:06] VITALS: BP 157/85
[2017-02-27] MEDS: DIVALPROEX 500 MG TAB PO SCH (08:20)
[2017-02-27] MEDS: hydroCHLOROthiazide 12.5 MG CAPSULE PO SCH (08:20)
[2017-02-27] MEDS: SERTRALINE HCL 50 MG TAB PO SCH (08:20)
[2017-02-27] MEDS: PREGABALIN 100 MG CAP (LYRICA) PO SCH (08:20)
[2017-02-27] MEDS: ACETAMINOPHEN TAB 650MG DOSE (2X325MG) PO PRN (08:21)
[2017-02-27] MEDS: NICOTINE 21MG/24HR 1 EA TRANSDERMAL TD SCH (08:21)
[2017-02-27] MEDS ORDERED: LISI-538 PO (10:46)
[2017-02-27] MEDS ORDERED: HYDR12CA PO (10:46)
[2017-02-27] MEDS ORDERED: SERT50TA PO (10:46)
--- NOTE | 2017-02-28 07:59 | MHDS ---
DATE OF ADMISSION: 02/23/2017 DATE OF DISCHARGE: 02/27/2017 LEGAL STATUS AT ADMISSION: 9.39 legal status. HISTORY OF PRESENT ILLNESS: 51-year-old male with history of depression and polysubstance dependency admitted to our unit in a 9.39 legal status. According to the chart, patient stated that has been feeling very depressed and was thinking about overdosing. Patient has a history of severe overdose in the past. He reported to the emergency room that he went to [place] to seek help for his pain and since he has returned, he has been homeless. He states that he cannot comply with [facility] requirements. The [facility] has placed him in a hotel outside town and wanted him to report daily and has no transportation and has not been able to follow through. His mother has been helping him stay a few days but he stated "she is not supposed to do so". Patient also reported that he has been without food for 4 days. The patient was unable to contract for safety and as he was thinking of overdosing, he was admitted as a result. During the interview in our unit, patient is cooperative. Patient reports feeling depressed, having low energy, feeling hopeless, helpless and having suicidal thoughts. There was no evidence of psychotic symptoms. No auditory or visual hallucinations. Patient was requesting to have medication for pain. LABS AT ADMISSION: His CBC showed hemoglobin of 13.4, hematocrit of 38.8. CMP is unremarkable. TSH within normal limits. Urine drug screen is positive for cannabis. Blood alcohol level was negative. HOSPITAL COURSE: After the first interview, patient was started on Zoloft 50 mg by mouth every morning, medication that he tolerated well. Also started on trazodone 50 mg as needed for insomnia. A pain management consult was done and they did not recommend the patient to be started on opiates. Patient continued to report on a daily basis that he was in pain. However, during the interview, patient did not appear to be uncomfortable. As above, patient has a very long history of polysubstance dependency including two overdoses in which patient barely made it. I discussed that issue with the patient. Patient has very little insight into his chemical dependency and rationalizes the use of opiates. On 02/27/2017, patient was called to team. He stated that he talked to his mother and he is allowed to stay with her until the end of the month. Our planner internship has given him information on apartment in [facility] that he will be able to rent with the help of some agencies. Also he will have the support of [employer] and case management. At the moment of discharge on 02/27/2017, patient is in stable condition with no auditory or visual hallucinations or delusions. Patient has improved from his depression. Patient continues to report pain and seeking treatment with opiates. He may be looking into a outpatient treatment to be started on methadone of Suboxone. He stated that during the team meeting. So he is discharged in stable condition. MEDICATIONS AT DISCHARGE: - Zoloft 50 mg by mouth daily at bedtime MENTAL STATUS EXAMINATION AT DISCHARGE: Patient is dressed in [facility]. Patient is calm and cooperative. His speech is clear, coherent with normal rate and is spontaneous. Patient has fair eye contact. Mood is slightly anxious and depressed but significant improved from admission. Affect is appropriate and congruent with mood. Patient is oriented to time, place, person and situation. Maintain attention and concentration correctly. Instant recovery, recent and remote memory are intact. Thought process coherent, logical and goal directed. Patient does not have auditory or visual hallucinations. Patient does not have paranoid, presecretory, somatic, grandiose or yarsanism delusion. Patient denies suicidal or homicidal ideation. Judgment is fair. Insight is poor as far as his chemical dependency. DISCHARGE DIAGNOSIS: [place] I: Adjustment disorder with depressed mood. Polysubstance dependency. Substance induced mood disorder. [place] II: Deferred. [place] III: Grand mal seizures and chronic pain. CONDITION AT DISCHARGE: Stable. No suicidal or homicidal ideation. No auditory or visual hallucinations. No delusions. INSTRUCTIONS TO THE PATIENT: Patient is to continue taking his medications as prescribed and followup appointments. He is advised to maintain absolute sobriety from drugs and alcohol. Patient has scheduled appointments for psychiatric medication management, individual psychotherapy and primary care physician.
== END 2017-02-27 15:00 | disposition home or self-care (01) | DRG 754 ==
LOC: M ED 02-23 02:08 → M ED INP 02-23 02:29 → M PSY 02-23 03:02
PROVIDERS: ADMIT Psychiatry & Neurology Psychiatry; ATTEND Psychiatry & Neurology Psychiatry
DX: F43.21 Adjustment disorder with depressed mood (principal); F12.20 Cannabis dependence, uncomplicated; F14.20 Cocaine dependence, uncomplicated; F11.24 Opioid dependence with opioid-induced mood disorder; G40.409 Other generalized epilepsy and epileptic syndromes, not intractable, without status epilepticus; M54.5 Low back pain; G89.29 Other chronic pain; I10 Essential (primary) hypertension; M54.2 Cervicalgia; F17.210 Nicotine dependence, cigarettes, uncomplicated; Z91.14 Patient's other noncompliance with medication regimen; Z91.5 Personal history of self-harm; Z79.899 Other long term (current) drug therapy

== ENCOUNTER 2017-03-07 08:43 | Emergency (ER) | payer OTHER ==
[~2017-03-07 08:43] MED LIST changes: +HYDR12CA PO; +IBUP-1022 PO; -IBUP600T26 PO; +LEVA1TAB2 PO; -LEVA500T PO; +LISI-538 PO; +PERC5TAB12 PO; -PERC5TAB6 PO; +SERT50TA PO; +TRAZ50TA11 PO; -TRAZ50TA4 PO; -ULTR50TA PO; +ULTR50TA8 PO
[2017-03-07] MEDS ORDERED: HYDR12CA PO (09:09)
[2017-03-07] MEDS ORDERED: LYRI225C PO (09:09)
[2017-03-07] MEDS ORDERED: ZOLO100T PO (09:31)
[2017-03-07 10:08] VITALS: BP 163/97
[2017-03-08] MEDS ORDERED: DIVA500T3 PO ×2 (16:34→18:35)
[2017-03-08] MEDS ORDERED: LYRI225C PO (18:35)
[2017-03-08] MEDS ORDERED: LISI20TA3 PO (18:35)
[2017-03-08] MEDS ORDERED: SERT-138 PO (18:35)
[2017-07-11] MEDS ORDERED: PERC5TAB12 PO (14:13)
== END 2017-03-07 10:09 | disposition home or self-care (01) ==
LOC: M ED 09:48
DX: F32.9 Major depressive disorder, single episode, unspecified (principal); F17.200 Nicotine dependence, unspecified, uncomplicated; Z88.6 Allergy status to analgesic agent; Z79.899 Other long term (current) drug therapy

== ENCOUNTER 2017-03-08 16:20 | Inpatient (IN) | payer OTHER ==
[~2017-03-08] VITALS: Ht 175.3 cm; Wt 92.9 kg
[~2017-03-08 16:20] MED LIST changes: +LYRI225C PO; +ZOLO100T PO
[2017-03-08] MEDS ORDERED: DIVA500T3 PO ×2 (16:34→18:35)
[2017-03-08 17:09] LABS: MEAN CORPUSCULAR HEMOGLOBIN 27.8 pg (27.0-33.0); MEAN CORPUSCULAR HGB CONC 32.4 g/dl (32.0-36.5); MEAN CORPUSCULAR VOLUME 85.8 fl (80.0-96.0); WHITE BLOOD COUNT 8.6 K/mm3 (4.0-10.0)
[2017-03-08 17:31] LABS: METHADONE URINE NEGATIVE (NEGATIVE)
[2017-03-08 17:47] LABS: ALBUMIN/GLOBULIN RATIO 1.08 (1.00-1.93); ALKALINE PHOSPHATASE 99 U/L (45-117); ALT/SGPT 38 U/L (12-78); ANION GAP 9 MEQ/L (8-16); AST/SGOT 22 U/L (15-37); BILIRUBIN,DIRECT < 0.1 MG/DL (0.0-0.2); BILIRUBIN,TOTAL 0.3 MG/DL (0.2-1.0); BLOOD UREA NITROGEN 10 MG/DL (7-18); CALCIUM LEVEL 9.3 MG/DL (8.5-10.1); CARBON DIOXIDE LEVEL 27 MEQ/L (21-32); CHLORIDE LEVEL 105 MEQ/L (98-107); CREATININE FOR GFR 0.89 MG/DL (0.70-1.30); GLOMERULAR FILTRATION RATE > 60.0 (>56); GLUCOSE, FASTING 107 MG/DL (70-105); POTASSIUM SERUM 3.8 MEQ/L (3.5-5.1); SODIUM LEVEL 141 MEQ/L (136-145); TOTAL PROTEIN 7.7 GM/DL (6.4-8.2)
[2017-03-08] MEDS ORDERED: MOM 30ML SUSPENSION UDC PO PRN (18:30)
[2017-03-08] MEDS ORDERED: MAALOX 30 ML SUSP *UDC PO PRN (18:30)
[2017-03-08] MEDS ORDERED: SERT-138 PO (18:35)
[2017-03-08] MEDS ORDERED: LYRI225C PO (18:35)
[2017-03-08] MEDS ORDERED: LISI20TA3 PO (18:35)
[2017-03-08 20:43] VITALS: BP 137/90
[2017-03-09 06:43] VITALS: BP 162/93
[2017-03-09] MEDS: LISINOPRIL 20 MG TAB PO SCH (08:19)
[2017-03-09] MEDS: DIVALPROEX 500 MG TAB PO SCH ×2 (08:20→21:55)
[2017-03-09] MEDS: NICOTINE 21MG/24HR 1 EA TRANSDERMAL TD SCH (08:20)
[2017-03-09] MEDS: hydroCHLOROthiazide 25 MG TAB PO SCH (08:20)
[2017-03-09] MEDS: SERTRALINE 100 MG TAB PO SCH (08:20)
[2017-03-09] MEDS: PREGABALIN 75 MG CAP(LYRICA) PO SCH ×4 (08:20→21:55)
[2017-03-09] MEDS: ACETAMINOPHEN TAB 650MG DOSE (2X325MG) PO PRN ×3 (10:15→22:42)
--- NOTE | 2017-03-09 16:52 | MHHPE ---
DATE OF ADMISSION: 03/08/2017 LEGAL STATUS AT ADMISSION: 9.39 legal status. CHIEF COMPLAINT: "I've been feeling depressed and I have suicidal thoughts." HISTORY OF PRESENT ILLNESS: 51-year-old male with history of depression and seizure disorder and also alcohol dependency and polysubstance abuse. Patient was admitted on a 9.39 legal status. According to the chart, patient reports increased depression since last week. Patient also stated that he has been off his depression medication for about a week since the pharmacy did not deliver it. Patient was discharged on 02/27/2017, and went to live with his mother. He stated that he cannot live there. He admits that he has been living intermittently with his mother and also with friends. His urine drug screen this time is negative. Patient says that he has been staying away from drugs and alcohol. During the interview today, patient states that he has been feeling increasingly depressed and started having suicidal thoughts. Patient reports feelings of hopelessness and helplessness, has problems with sleep, has anhedonia, is unable to concentrate, and complains of chronic pain. No evidence of psychotic symptoms. No auditory or visual hallucinations or delusions during the interview. PSYCHIATRIC REVIEW OF SYSTEMS: Depression and other mood disorder: Patient reports depression, insomnia, anhedonia, hopelessness, low energy, and psychomotor retardation along with suicidal thoughts. Substance abuse: Patient has history of alcohol, opiates, and polysubstance dependency. Anxiety: Patient reports anxiety but denies panic symptoms or agoraphobia. No evidence of obsessive compulsive symptoms. Denies washing hands repeatedly or checking things over and over. Somatization disorder: Screening for pain is positive, but is negative for conversion, gastrointestinal (GI), and sexual symptoms. Eating disorder: Screening for dieting, use of laxatives, eating in binges is negative. Dementia and cognitive disorder: Screening for short and long-term memory, orientation, and general information is negative for dementia or cognitive disorder. Psychotic disorder: There is no evidence of delusions, paranoia, grandiosity, or islam preoccupation. No hallucinations. No looseness of associations. PAST MEDICAL HISTORY: Patient has history of back pain post-reconstructive surgery and grand mal seizure. PAST PSYCHIATRIC HISTORY: As above, patient has history of depression and also a history of severe overdose. Patient also has a history of polysubstance dependency. FAMILY HISTORY: Noncontributory. SOCIAL HISTORY: Patient was born in [place]. He was raised in [place] by his parents. He is the oldest of seven brothers. He dropped out of school in the 11th grade. 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 He has no history of physical or sexual abuse. SUBSTANCE ABUSE HISTORY: Patient has history of polysubstance dependency including opiates, cocaine, and cannabis. LABORATORY DATA: At admission: His CBC is unremarkable. CMP within normal limits. TSH within normal limits. Urine drug screen (UDS) is negative. Blood alcohol level is negative. PHYSICAL EXAMINATION: As per physician assistant track and field coach. MENTAL STATUS EXAMINATION: Patient is dressed in [facility]. Patient is cooperative. Speech is soft and monotone, has poor eye contact. Mood is depressed and anxious. Affect is restricted. Patient is oriented to time, place, person, and situation. Maintains attention and concentration correctly. Instant recall, recent, and remote memory are intact. Thought processes are coherent, logical, and goal-directed. Patient does not have auditory or visual hallucinations. Patient does not have paranoid, persecutory, somatic, grandiose, or islam delusions. Patient denies homicidal thoughts but reports intermittent suicidal ideation and cannot contract for safety. Judgment and insight are poor. DIAGNOSES: AXIS I: Unspecified depressive disorder. Rule out major depressive disorder. Rule out substance induced mood disorder. Polysubstance dependency. AXIS II: Deferred. AXIS III: Chronic pain. Grand mal seizures. INITIAL TREATMENT PLAN: Patient was admitted on a 9.39 legal status. Complete history was obtained. With his permission, family will be contacted and database will be expanded. His medication regimen will be reviewed and changed accordingly. He will be provided with a protected environment. He will be treated with individual, group, and milieu therapies. He will also receive supportive psychoeducation. Discharge planning will commence immediately. Length of stay will be between 7-10 days. Outpatient followup will be strongly recommended. The treatment plan will focus initially on depression, risk for suicide, and substance abuse.
[2017-03-09 18:00] VITALS: BP 150/90
[2017-03-09] MEDS: traZODone 50 MG TAB PO PRN (22:40)
[2017-03-10 06:00] VITALS: BP 123/73
[2017-03-10] MEDS: hydroCHLOROthiazide 25 MG TAB PO SCH (08:25)
[2017-03-10] MEDS: SERTRALINE 100 MG TAB PO SCH (08:25)
[2017-03-10] MEDS: DIVALPROEX 500 MG TAB PO SCH ×2 (08:25→22:04)
[2017-03-10] MEDS: ACETAMINOPHEN TAB 650MG DOSE (2X325MG) PO PRN (08:26)
[2017-03-10] MEDS: PREGABALIN 75 MG CAP(LYRICA) PO SCH ×4 (08:26→22:05)
[2017-03-10] MEDS: LISINOPRIL 20 MG TAB PO SCH (08:27)
[2017-03-10] MEDS: NICOTINE 21MG/24HR 1 EA TRANSDERMAL TD SCH (08:27)
--- NOTE | 2017-03-10 15:16 | IPN ---
DATE: 03/10/2017 51-year-old male with a history of depression, seizure disorder and alcohol dependency and polysubstance abuse admitted with significant symptoms of depression and suicidal ideation. SUBJECTIVE: " I have to have something for this pain". OBJECTIVE: No major changes from yesterday at admission. The patient continues to report depression and suicidal thoughts. The patient reports that he needs to find treatment for his pain. The patient appear to be motivated for treatment. His urine drug screen was negative and he says that he has not been using drugs or alcohol. During the interview, there is no evidence of psychotic symptoms nor auditory or visual hallucinations or delusions. The patient continues with psychomotor retardation, sad restricted facial expression. MENTAL STATUS EXAMINATION: The patient is dressed in [facility]. The patient is cooperative, has poor eye contact. Speech is soft and monotone. Mood is depressed. Affect is restricted. No delusions or hallucinations. Memory, attention, and concentration are fair. The patient continues to report intermittent suicidal thoughts. Insight and judgment is limited. ASSESSMENT: 1. Depression. 2. Suicidal ideation. 3. Polysubstance dependency. PLAN: 1. Continue with Zoloft 100 mg by mouth every morning. 2. Continue Depakote 100 mg by mouth twice a day. 3. Continue with trazodone 50 mg by mouth nightly. 4. Continue medication management, individual and group therapy.
[2017-03-10 18:22] VITALS: BP 136/76
[2017-03-10] MEDS: traZODone 50 MG TAB PO PRN (22:50)
[2017-03-10 23:28] VITALS: BP 136/76
[2017-03-11 06:28] VITALS: BP 147/86
--- NOTE | 2017-03-11 06:47 | HPE ---
DATE OF ADMISSION: 03/08/2017 HISTORY OF PRESENT ILLNESS: Please refer to psychiatric history and evaluation for further details on this admission. This examination and history is intended for medical issues, which may need treatment, followup or consult on this 51-year-old male. PRIMARY CARE PROVIDER: Dr. Lawler. PAST MEDICAL HISTORY: 1. Epilepsy, previously followed by Dr. Levine. 2. Hypertension. 3. C7 fracture 1998. 4. Chronic neck pain. 5. Chronic back pain. 6. Polysubstance abuse. 7. Mood disorder. 8. Depression. 9. Accidental overdose on February 2017. 10. History of priapism. 11. History of acute renal failure. 12. History of rhabdomyolysis. 13. History of sepsis. 14. History of pneumonia. 15. History of metabolic encephalopathy. PAST SURGICAL HISTORY: 1. Bilateral eye surgery as a child. 2. Bilateral right inguinal hernia repair. 3. Cervical spinal fusion. SOCIAL HISTORY: The patient resides in [place]. He was at his mother's. He states he cannot stay there. Marital status: . He has three children. He is unemployed. He smokes one pack of cigarettes per day. He was drinking heavily. He states he has had none since discharge from inpatient mental health unit (IM) 02/27/2017. Recreational drugs: Marijuana. He has a history of heroin abuse. States he has not had any for 3-4 years. FAMILY HISTORY: Mother alive, health unknown. Father of a myocardial infarction ([place]). ALLERGIES: NONSTEROIDAL ANTIINFLAMMATORY DRUGS (NSAIDS). LABORATORY STUDIES: CBC was normal. CMP normal. Toxicology screen was negative. HOME MEDICATIONS: - Depakote 1000 mg by mouth twice a day - Lyrica 225 mg by mouth four times a day - sertraline 100 mg by mouth daily - lisinopril/hydrochlorothiazide 20/25 one by mouth daily Patient has an upcoming appointment on Monday at the pain management center at [facility]. REVIEW OF SYSTEMS: 10-system review other than his pain which is chronic, was unremarkable. PHYSICAL EXAMINATION: Height 69 inches, weight 58.3 kg, body mass index (BMI) 28.7. Blood pressure 126/76, pulse 90, respirations 18, temperature 97.9. Patient is alert and oriented times three. Pupils equal and react to light. Extraocular muscles intact. Cornea and sclerae clear. Conjunctivae were normal. No facial asymmetry. Pharynx, tongue and gums pink and moist. Tongue is midline. Neck is supple without lymphadenopathy. No thyromegaly, no goiter. Carotid 2+ without bruit. Chest clear to auscultation without wheeze or retraction. Heart is regular. Abdomen is benign. Bowel sounds positive. Genitourinary/rectal: Not done. Extremities: Show equal strength, full range of motion. No cyanosis, clubbing or edema. Peripheral pulses equal and palpable bilaterally. Skin is warm and dry. Gait steady. EKG 02/10/2017: Sinus rhythm. IMPRESSION/PLAN: 1. Psychiatric plan per psychiatry. 2. Nicotine dependence. Patch available. 3. Chronic pain. Make sure he reschedules. He has an appointment with pain management to be established at [facility] on Monday. 4. Epilepsy, currently clinically stable. Continue Depakote and Lyrica. 5. Hypertension, clinically stable. Continue lisinopril/hydrochlorothiazide. No acute medical issues.
[2017-03-11] MEDS: PREGABALIN 75 MG CAP(LYRICA) PO SCH ×4 (08:41→22:42)
[2017-03-11] MEDS: DIVALPROEX 500 MG TAB PO SCH ×2 (08:41→22:43)
[2017-03-11] MEDS: hydroCHLOROthiazide 25 MG TAB PO SCH (08:42)
[2017-03-11] MEDS: SERTRALINE 100 MG TAB PO SCH (08:42)
[2017-03-11] MEDS: NICOTINE 21MG/24HR 1 EA TRANSDERMAL TD SCH (08:42)
[2017-03-11] MEDS: LISINOPRIL 20 MG TAB PO SCH (08:43)
[2017-03-11] MEDS: ACETAMINOPHEN TAB 650MG DOSE (2X325MG) PO PRN (13:06)
--- NOTE | 2017-03-11 16:35 | IPN ---
DATE: 03/11/2017 A 51-year-old male with history of depression, seizure disorder, polysubstance dependency admitted with significant symptoms of depression and suicidal ideation. SUBJECTIVE: "I'm feeling a little better." OBJECTIVE: The patient is improving slowly, although continue to report pain and the need to be treated for this. The patient suggesting maybe the use of Tramadol. I discussed this issue with the patient and told him that we were going to follow the recommendations of the pain clinic. There is no evidence of psychotic symptoms. No auditory or visual hallucinations. The patient continues with psychomotor retardation, sad, restricted facial expression, and intermittent suicidal thoughts. MENTAL STATUS EXAMINATION: Patient dressed in [facility]. Patient is cooperative, has fair eye contact. Speech is soft and monotone. Mood is depressed. Affect is restricted. No delusions or hallucinations. Memory, attention and concentration are fair. The patient continues to report intermittent suicidal thoughts. Insight and judgment are limited. ASSESSMENT: 1. Depression. 2. Suicidal ideation. 3. Polysubstance dependency. PLAN: 1. Continue with Zoloft 100 mg by mouth every morning. 2. Continue with Depakote 1000 mg by mouth twice a day. 3. Continue with trazodone 50 mg by mouth at bedtime. 4. Continue medication management, individual and group therapy.
[2017-03-11 18:00] VITALS: BP 125/78
[2017-03-11] MEDS: traZODone 50 MG TAB PO PRN (22:41)
[2017-03-12 06:19] VITALS: BP 141/91
[2017-03-12] MEDS: hydroCHLOROthiazide 25 MG TAB PO SCH (08:24)
[2017-03-12] MEDS: DIVALPROEX 500 MG TAB PO SCH ×2 (08:25→21:27)
[2017-03-12] MEDS: NICOTINE 21MG/24HR 1 EA TRANSDERMAL TD SCH (08:25)
[2017-03-12] MEDS: PREGABALIN 75 MG CAP(LYRICA) PO SCH ×4 (08:25→21:28)
[2017-03-12] MEDS: SERTRALINE 100 MG TAB PO SCH (08:25)
[2017-03-12] MEDS: LISINOPRIL 20 MG TAB PO SCH (08:26)
[2017-03-12] MEDS ORDERED: traZODone 100 MG TAB PO PRN (12:00)
--- NOTE | 2017-03-12 17:08 | IPN ---
DATE: 03/12/2017 A 51-year-old male with history of depression, seizure disorder, and polysubstance dependency admitted with significant symptoms of depression and suicidal ideation. SUBJECTIVE: "I'm feeling better." OBJECTIVE: The patient is improving. He is interacting better with other patients and staff. The patient has less psychomotor retardation. His facial expression has improved. The patient reports some degree of insomnia and requests to have his trazodone increased. No evidence of delusions or hallucinations. MENTAL STATUS EXAMINATION: The patient is dressed in [facility]. He is cooperative, has fair eye contact. Speech is normal in rate, volume. Articulation is coherent and spontaneous. Mood is depressed but improved. Affect is not as restricted. No delusions or hallucinations. Memory, attention and concentration are fair. The patient is able to contract for safety during the interview and denies suicidal or homicidal ideations. Insight and judgment are fair. ASSESSMENT: 1. Depression. 2. Suicidal ideation. 3. Polysubstance dependency. PLAN: 1. Continue with Zoloft 100 mg by mouth every morning. 2. Increase trazodone to 100 mg by mouth at bedtime. 3. Continue with Depakote 1000 mg by mouth twice a day 4. Continue medication management, individual and group therapy. 5. If patient continues improving, we will discharge tomorrow.
[2017-03-12 18:38] VITALS: BP 138/85
[2017-03-12] MEDS: ACETAMINOPHEN TAB 650MG DOSE (2X325MG) PO PRN (21:54)
[2017-03-13 06:43] VITALS: BP 162/90
[2017-03-13 08:34] VITALS: BP 162/90
[2017-03-13] MEDS: PREGABALIN 75 MG CAP(LYRICA) PO SCH ×3 (08:34→16:17)
[2017-03-13] MEDS: LISINOPRIL 20 MG TAB PO SCH (08:34)
[2017-03-13] MEDS: DIVALPROEX 500 MG TAB PO SCH (08:34)
[2017-03-13] MEDS: hydroCHLOROthiazide 25 MG TAB PO SCH (08:34)
[2017-03-13] MEDS: NICOTINE 21MG/24HR 1 EA TRANSDERMAL TD SCH (08:35)
[2017-03-13] MEDS: SERTRALINE 100 MG TAB PO SCH (08:35)
[2017-03-13] MEDS: ACETAMINOPHEN TAB 650MG DOSE (2X325MG) PO PRN (08:35)
[2017-03-13] MEDS ORDERED: SERT-138 PO (12:04)
--- NOTE | 2017-03-14 08:51 | MHDS ---
DATE OF ADMISSION: 03/08/2017 DATE OF DISCHARGE: 03/13/2017 LEGAL STATUS AT ADMISSION: 9.39 legal status. 51-year-old male with history of depression and seizure disorder, and also polysubstance dependency admitted to our unit on a 9.39 legal status. According to the chart, patient reported increased depression for 1 week. Said that he has been off his depression medication for that time since the pharmacy did not deliver it. He was discharged from our unit on 02/27/2017. He went to live with his mother. He stated that he cannot live there. He admitted that he has been living intermittently between his mother and some friends. The urine drug screen this time was negative. Said that he has been staying away from drugs and alcohol since discharge. During the interview in our unit, patient stated that he has been feeling increasingly depressed and started having suicidal thoughts. As above, he was off medications for 1 week. He reported feeling hopelessness, helpless, having problems with sleeping. Reported anhedonia, been unable to concentrate, and also chronic pain. There was no evidence of psychotic symptoms. No auditory or visual hallucinations or delusions. LABORATORIES AT ADMISSION: CBC was unremarkable. CMP within normal limits. TSH within normal limits. UDS was negative. Blood alcohol level was negative. HOSPITAL COURSE: After the first interview, patient was started on sertraline 100 mg by mouth daily and trazodone as needed for insomnia. Patient had no complications during this hospital admission. Patient denied any side effect. His mood improved rather quick after he was restarted on Zoloft. Hew was interacting well with peers and staff. He was going to all psychotherapeutic activities of the unit. Re-evaluation on 03/13/2017, patient does not meet criteria for inpatient hospitalization at this time. Therefore, patient can be managed in outpatient basis. Patient is denying suicidal or homicidal ideation. There is no evidence of psychotic features. No auditory or visual hallucinations or delusions at discharge. MEDICATIONS AT DISCHARGE: - sertraline 100 mg by mouth daily - Patient is to continue taking the Depakote 1000 mg by mouth twice a day for seizure disorder. MENTAL STATUS EXAMINATION AT DISCHARGE: Patient is dressed in [facility]. Patient is calm and cooperative. Speech is clear, coherent, with normal rate and is spontaneous. Has good eye contact. Mood is euthymic. Affect is appropriate and congruent with mood. Patient is oriented to time, place, person and situation. Maintains attention and concentration correctly. Instant recall, recent and remote memory are intact. Thought processes are coherent, logical and goal-directed. Patient does not have auditory or visual hallucinations. Patient does not have paranoid, persecutory, somatic, grandiose or religions delusions. Patient is denying suicidal or homicidal ideation. Judgment and insight are fair. DISCHARGE DIAGNOSES: AXIS I: Unspecified depressive disorder. Polysubstance dependency by history. AXIS II: Deferred. AXIS III: Chronic pain and grand mal seizures. CONDITION AT DISCHARGE: Stable. Patient denies auditory or visual hallucinations. No delusions. Denies suicidal or homicidal ideation. INSTRUCTIONS TO THE PATIENT: Patient is to continue taking his medications as prescribed and followup appointments. He is advised to maintain absolute sobriety from drugs and alcohol. Patient has scheduled appointment for medication management, individual psychotherapy and primary care physician.
[2017-07-11] MEDS ORDERED: PERC5TAB12 PO (14:13)
== END 2017-03-13 15:40 | disposition home or self-care (01) | DRG 754 ==
LOC: M ED 16:20 → M ED INP 18:23 → M PSY 20:38
PROVIDERS: ADMIT Psychiatry & Neurology Psychiatry; ATTEND Psychiatry & Neurology Psychiatry
DX: F32.9 Major depressive disorder, single episode, unspecified (principal); F11.20 Opioid dependence, uncomplicated; I10 Essential (primary) hypertension; F14.20 Cocaine dependence, uncomplicated; G40.409 Other generalized epilepsy and epileptic syndromes, not intractable, without status epilepticus; F12.20 Cannabis dependence, uncomplicated; G89.29 Other chronic pain; M54.2 Cervicalgia; Z98.1 Arthrodesis status; F17.210 Nicotine dependence, cigarettes, uncomplicated; Z79.899 Other long term (current) drug therapy; Z88.6 Allergy status to analgesic agent

== ENCOUNTER 2017-03-14 08:03 | Inpatient (IN) | payer OTHER ==
[~2017-03-14] VITALS: Ht 188 cm; Wt 96.6 kg
[2017-03-14] VITALS (13 sets, daily range): BP systolic 90–160; BP diastolic 59–95; O2SAT 91–95
[~2017-03-14 08:03] MED LIST changes: +LISI20TA3 PO; +SERT-138 PO
[2017-03-14] MEDS ORDERED: PIPERACILLIN/TAZOBACTAM SOD 3.375 GM in D5W MINI-BAG PLUS 50 ML IV ONE (08:30)
--- NOTE | 2017-03-14 08:35 | REP ---
Clinical: Overdose. Comparison: 02/10/2017. Findings: Evaluation is limited by portable technique and underpenetration. Mediastinum and cardiac silhouette are relatively stable. Cannot exclude subtle bibasilar opacities (right greater than left).. No obvious effusion. No pneumothorax. Skeletal structures are intact. Impression: Cannot exclude bibasilar opacities (right greater than left). Signed by Tom Martino MD 03/14/2017 08:26 A
[2017-03-14 08:37] LABS: ABG BASE EXCESS -0.1 (-2.0-2.0); ABG HCO3 29.7 MEQ/L (22.0-26.0); ABG PARTIAL PRESSURE O2 150.9 mmHg (75.0-100.0); ABG STANDARD HCO3 24.4 MEQ/L (22.0-26.0)
[2017-03-14 08:40] LABS: ABG PARTIAL PRESSURE CO2 74.3 mmHg (35.0-45.0)
[2017-03-14 08:59] LABS: ADD MANUAL DIFFER YES; MEAN CORPUSCULAR HEMOGLOBIN 28.3 pg (27.0-33.0); MEAN CORPUSCULAR HGB CONC 31.7 g/dl (32.0-36.5); MEAN CORPUSCULAR VOLUME 89.3 fl (80.0-96.0); PLATELET COUNT, AUTOMATED 216 k/mm3 (150-450); WHITE BLOOD COUNT 14.4 K/mm3 (4.0-10.0)
[2017-03-14 09:09] LABS: ALBUMIN 3.9 GM/DL (3.2-5.2); ALBUMIN/GLOBULIN RATIO 1.11 (1.00-1.93); ALKALINE PHOSPHATASE 87 U/L (45-117); ALT/SGPT 43 U/L (12-78); ANION GAP 11 MEQ/L (8-16); AST/SGOT 45 U/L (15-37); BILIRUBIN,DIRECT < 0.1 MG/DL (0.0-0.2); BILIRUBIN,TOTAL 0.3 MG/DL (0.2-1.0); BLOOD UREA NITROGEN 19 MG/DL (7-18); CALCIUM LEVEL 8.9 MG/DL (8.5-10.1); CARBON DIOXIDE LEVEL 31 MEQ/L (21-32); CHLORIDE LEVEL 101 MEQ/L (98-107); CREATININE FOR GFR 1.68 MG/DL (0.70-1.30); GLOMERULAR FILTRATION RATE 45.7 (>56); GLUCOSE, FASTING 91 MG/DL (70-105); POTASSIUM SERUM 3.6 MEQ/L (3.5-5.1); SODIUM LEVEL 143 MEQ/L (136-145); TOTAL PROTEIN 7.4 GM/DL (6.4-8.2)
--- NOTE | 2017-03-14 09:09 | REP ---
Clinical: Altered mental status . Comparison: 02/10/2017 . Findings: The ventricles, sulci, and cisterns are normal in position and appearance. Can-white differentiation is maintained. No acute intracranial hemorrhage, mass/mass effect, pathology or trauma/injury. No evidence for acute infarction. No extra-axial fluid collection. Calvarium is intact. Paranasal sinuses and mastoid air cells are clear. Impression: Normal noncontrast head CT. No evidence for acute intracranial pathology or trauma/injury. Signed by Tom Martino MD 03/14/2017 09:01 A
--- NOTE | 2017-03-14 09:12 | REP ---
Clinical: Trauma. Comparison: 01/04/2017. Technique: Axial noncontrast images from the skull base to the thoracic inlet with coronal and sagittal re-formations Findings: The patient is status post anterior fusion at the C5 through T1 level and appears stable. Straightening of normal lordosis along with moderate degenerative disc osteophyte complex at the C2-3, C3-4, C4-5 levels remain stable. No acute fracture / compression injury or subluxation. Spinal canal is patent. Posterior elements are intact. Paravertebral soft tissues are normal. Impression: Stable postoperative and moderate multilevel degenerative changes. No acute cervical spine pathology or trauma/injury. Signed by Tom Martino MD 03/14/2017 09:04 A
[2017-03-14] MEDS ORDERED: DILUENT IV ONE (09:15)
[2017-03-14] MEDS ORDERED: NS IV ONE (09:15)
[2017-03-14 09:20] LABS: INR 1.01
[2017-03-14] MEDS: NS 1,000 ML IV SCH ×4 (09:23→21:51)
[2017-03-14 09:24] LABS: ANISOCYTOSIS 1+; BANDS 4 % (< 11); EOSINOPHILS 1 % (0-5)
[2017-03-14 10:14] LABS: METHADONE URINE NEGATIVE (NEGATIVE)
[2017-03-14] MEDS ORDERED: NS 1,000 ML IV ONE (11:15)
--- NOTE | 2017-03-14 11:50 | HPE ---
DATE OF ADMISSION: 03/14/2017 PRIMARY CARE PROVIDER: Dr. Lawler CHIEF COMPLAINT: Altered mental status. HISTORY OF PRESENT ILLNESS: The patient is a 51-year-old male with a past medical history significant for hypertension, seizure disorder, polysubstance abuse, depression, and chronic back pain who was brought to [facility] emergency room by emergency medical services (EMS) for altered mental status. The patient was discharged from the [facility] on March 13, 2017 and when the patient got home he stated his chronic back pain started to have acute flare and his pain is not controlled by his home medications. Then he started getting narcotics from his brother or his friend. After the increased dose of the medication, he started having altered mental status changes and he was brought to [facility] for further evaluation. When the patient was in the emergency room, the patient was found to have respiratory failure. Initially he was on the VentiMask and he was switched over to BiPAP. One dose of Narcan was given to the patient, but the patient's mentation only showed some slight improvement and the hospitalist team was called for admission. The patient is an extremely poor historian. The patient has difficulty maintaining alertness and awakeness. Many of the information obtained from the medical records. ALLERGIES: No known drug allergies. PAST MEDICAL HISTORY: History of polysubstance abuse. History of seizure disorder. Hypertension. Depression requiring multiple [facility] admissions. History of diffuse disc bulging. PAST SURGICAL HISTORY: Bilateral eye surgery. Cervical plate placement. Hernia repair. SOCIAL HISTORY: Chronic smoker for approximately one pack a day. Denies alcohol use. Patient has a history of polysubstance abuse. Patient is a [employer]. REVIEW OF SYSTEMS: Limited due to patient's current mental state. GENERAL: Denies any fever or chills. CARDIOVASCULAR: Denied any chest pain or palpitations. RESPIRATORY: Denied any cough or sputum production. Denies any chronic lung disease. GASTROINTESTINAL (GI): No diarrhea. No abdominal pain. OBJECTIVE: VITAL SIGNS: Temperature 98.1, pulse 90, respirations 22, blood pressure 145/88 , pulse oximetry 91% with VentiMask with 50% FiO2. Later patient was switched to BiPAP. GENERAL: Lethargic. Has difficulty maintaining alertness and awakeness. Patient often answers questions incorrectly. Unable to assess orientation fully. HEENT: Normocephalic, atraumatic. CARDIOVASCULAR: Positive S1 and S2. Regular rate. LUNGS: Decreased breath sounds of the right lower lobe. I cannot appreciate any wheezes. ABDOMEN: Soft, nontender, nondistended. MUSCULOSKELETAL: No lower extremity edema. No signs of cyanosis. LABORATORY DATA: WBC 14.4, hemoglobin 13.9, hematocrit 43.9, platelet count 216. Sodium is 143, potassium 3.6, chloride 101, carbon dioxide 31, BUN 19, creatinine is 1.68, GFR is 45.7, fasting glucose 91, lactic acid is 5.5, calcium 8.9, total bilirubin 0.3, direct bilirubin less than 0.01, AST 45, ALT 43, alkaline phosphatase 87, ammonia level is 61, total CK is 391, Troponin is 0.02, total protein if 7.4, albumin 3.9, TSH 3.03. ABG shows a pH of 7.32, pCO2 of 74.3, pO2 is 50.9, HCO3 is 29.7. PT is 13.4, INR is 1.01. Urine toxicology showed positive for opiate and positive for benzodiazepine. Blood culture is pending. CT of the head without contrast showed normal noncontrast head CT. Chest x-ray cannot exclude bibasilar opacity. CT of cervical spine showed stable postoperative and moderate multilevel degenerative changes. No acute cervical spine pathology or trauma/injury. ASSESSMENT/PLAN: 1. Acute respiratory failure. Patient admitted to ICU inpatient status. Currently patient is on BiPAP. 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 Patient's respiratory failure most likely is secondary to narcotic overuse. Patient received Narcan. Will monitor the patient on telemetry. The patient's home medications were reviewed. The patient is not prescribed narcotics or benzodiazepine, however it shows positive in the urine toxicology. Due to the patient's current mental status and suspicion for aspiration, the patient will be nothing by mouth. The patient will be IV fluids at this moment. 2. History of seizure disorder. Continue to monitor. Medications are on hold due to aspiration and the patient's altered mental status. 3. History of polysubstance abuse. The patient had a history of marijuana, heroin and amphetamine use detected by urine toxicology in the past. Currently patient is positive for opiate and benzodiazepine. 4. Chronic back pain. Patient was seen by pain management during his last hospitalization. Per pain management recommendations patient should continue with NSAID. No narcotics were recommended at the moment due to history of medication overdose. 5. Severe depression requiring multiple ED visits and IMHU admissions. 6. Deep vein thrombosis (DVT) prophylaxis. Patient will be on heparin. Suspect aspiration. Will followup with CT of the chest. Patient is empirically started on Zosyn. MTDD
[2017-03-14 12:23] LABS: ABG BASE EXCESS -2.5 (-2.0-2.0); ABG HCO3 29.1 MEQ/L (22.0-26.0); ABG PARTIAL PRESSURE O2 129.7 mmHg (75.0-100.0); ABG STANDARD HCO3 22.4 MEQ/L (22.0-26.0); ABG TOTAL CO2 31.9 MEQ/L (22.0-29.0)
[2017-03-14 12:33] LABS: ABG pH (ARTERIAL) 7.126 UNITS (7.350-7.450)
[2017-03-14 12:35] LABS: ABG PARTIAL PRESSURE CO2 90.4 mmHg (35.0-45.0)
[2017-03-14] MEDS ORDERED: NALOXONE INJ 2 MG/2 ML SYRINGE (J2310) IV STA (12:45)
--- NOTE | 2017-03-14 12:55 | CR ---
DATE OF CONSULTATION: 03/14/2017 REQUESTING PHYSICIAN: Dr. Shaver REASON FOR CONSULTATION: Acute respiratory failure secondary to aspiration pneumonia. C/C: Unresponsive HISTORY OF PRESENT ILLNESS: 51-year-old male with past medical history of recurrent pneumonia, sepsis, rhabdomyolysis, acute renal failure, overdose, psychiatric disease, and substance abuse who presented with hypoxia. After reviewing the patient's chart, the patient was recently discharged from inpatient mental [facility]. The patient was found down unresponsive by the patient's friend who called emergency medical services (EMS) and EMS has given the patient Narcan , after which the patient was minimally responsive. Patient was able to speak, however he was very weak and hypoxic. On chest x-ray, patient was found to have infiltrates worse on right side, therefore the suspicion is the patient could have aspirated. The patient was seen emergently in the ED. At that point, the patient was able to nod, but he does not respond to questions appropriately. ALLERGIES: 1. NSAIDS with unknown reaction. HOME MEDICATIONS: - Depakote 1000 mg by mouth twice a day - lisinopril hydrochlorothiazide 20/25 mg one table by mouth daily - Lyrica 225 mg one tablet by mouth four times a day - sertraline 100 mg one tablet by mouth daily PAST MEDICAL HISTORY: 1. Epilepsy, previously followed by Dr. Levine. 2. Hypertension. 3. Chronic pain including in the neck and back with a C7 fracture in 1998. 4. Polysubstance abuse. 5. Depression and mood disorder, and accidental overdose in 2017. 6. History of acute renal failure. 7. History of rhabdomyolysis. 8. History of sepsis. 9. History of pneumonia. 10. History of metabolic encephalopathy. PAST SURGICAL HISTORY: 1. Bilateral eye surgery as a child. 2. Bilateral inguinal hernia repair. 3. Cervical spinal fusion. SOCIAL HISTORY: According to the chart, the patient resides in [place]. Patient has three children, currently unemployed. Smokes one pack of cigarettes per day. Drinks heavily. He was discharged on February 27, 2017 from inpatient mental health. Patient does use marijuana and has a history of heroin abuse. FAMILY HISTORY: Mother is alive. Father from myocardial infarction ([place]). REVIEW OF SYSTEMS: Could not be obtained due to patient is very weak and confused, on BiPAP. PHYSICAL EXAMINATION: VITAL SIGNS: Temperature 98.1, oxygen saturation 86% on BiPAP of 14/16, respiratory rate was set at 12, blood pressure 91/55. Patient is a middle aged male, appears to be very weak, now on BiPAP, sitting up at 70 degrees on his bed. HEENT: Normocephalic, atraumatic. Extraocular motor could not be assessed due the patient being very weak. Mucous membranes moist. NECK: Supple. No neck lymphadenopathy. CARDIOVASCULAR: Distant heart sounds due to increased AP diameter. Normal S1 and S2, regular rate and rhythm. LUNGS: Appears to be clear to auscultation bilaterally. Patient does have tenderness to palpation in the spine around the T12/L1. ABDOMEN: Positive bowel sounds. Soft, nontender, nondistended. No peritoneal signs. No ecchymosis. EXTREMITIES: No edema, clubbing or cyanosis. Extremities have normal range of motion. SKIN: Warm and dry. NEURO: Could not be assessed due to patient currently is very weak and does not follow all the commands. LABS: WBC 14.4, hemoglobin 13.9, hematocrit is 43, platelet count 216. Sodium 143, potassium 3.6, chloride 101, bicarb 31, anion gap 11, BUN 19, creatinine 1.68, GFR 45.7, fasting glucose 91, osmolality was 303, lactic acid 5.5, calcium 8.9, total bilirubin 0.3, direct bilirubin less than 0.1, AST 45, ALT 43, alkaline phosphatase 87, ammonia level was 61, total creatinine kinase was 391, Troponin 0.02, total protein 7.4, albumin 3.9. ABG shows pH of 7.2, pCO2 was 43, pO2 was 150.9, oxygen was satting at 98%. PT 13.4, INR 1.01. Urine drug screen (UDS) shows positive for opiates, positive for benzodiazepine. Blood cultures times two are currently pending. Patient has a cervical CT shows stable postoperative and moderate multilevel degenerative changes. Portable chest x-ray today shows possible bilateral basilar opacities, right side greater than left side. Patient had a head CT without contrast today which shows normal noncontrast head CT. ASSESSMENT/PLAN: 51-year-old male who presented with acute respiratory failure requiring BiPAP. 1. Acute respiratory failure, possibly secondary to aspiration pneumonia. The patient does have an elevated white count with a lactic acid of 5.5 and also acute renal failure with creatinine of 1.68. Patient's urine drug screen did show positive for opiates and benzodiazepines. Patient possibly had an overdose which resulted in aspiration. At this point, will continue the patient on BiPAP with a setting of 14/6. Will titrate to keep the patient's oxygen saturation above 92%. Will repeat ABG in one hour. Previous ABG does show respiratory acidosis with a pH of 7.2, pCO2 of 74.3, and pO2 of 150. 2. Hypotension with a blood pressure of 87/53 possibly due to drug overdose vs severe sepsis. Patient however was fluid responsive. He received 2 liters of normal saline. We have added another liter of normal saline bolus. A recheck of blood pressure shows the patient's blood pressure was 109/73. Will continue to monitor. 3. Aspiration pneumonia, possibly secondary to overdose. Continue IV fluids. Continue Zosyn 3.375 grams IV every 8 hours. Blood cultures times two have been ordered. Results pending. Will followup. 4. Deep vein thrombosis (DVT) and gastrointestinal (GI) prophylaxis with heparin 5000 units subcutaneously every 8 hours. Will add Protonix for stress ulcer prevention. DISPOSITION: The patient's prognosis is guarded. Will continue BiPAP and continue antibiotics. Total critical care time is 1 hour. Patient has been discussed with attending doctor, Dr. Martínez. My preceptor for this patient encounter was Dr. Rob Martínez. The preceptor was physically present in the room during the encounter and was fully available. As needed, all aspects of the patient interview, examination, medical decision making process, and medical care plan development were reviewed and approved by the preceptor. The preceptor is aware and concurs with the plan as stated in the body of this note and will attest to such by his/her cosignature. I, Rob Martínez, conducted an independent history and physical and attended his beside providing critical care, managed mechanical ventilation, and directed additional narcan due to his respiratory failure. My total critical care exceeded one hour. I agree with the assessment and plan as outlined above. He will require psychiatric evaluation after his recovery as this may have been an intentional overdose. JOE
[2017-03-14] MEDS: PANTOPRAZOLE 40MG INJ (PROTONIX) (C9113) IV SCH (13:10)
[2017-03-14] MEDS: HEPARIN SOD (PORCINE) 5000 UNITS/ML VIAL SC SCH ×2 (13:10→21:51)
--- NOTE | 2017-03-14 14:51 | ECGEPIP ---
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
[2017-03-14 14:53] LABS: ABG HCO3 23.1 MEQ/L (22.0-26.0); ABG PARTIAL PRESSURE CO2 50.1 mmHg (35.0-45.0); ABG PARTIAL PRESSURE O2 70.7 mmHg (75.0-100.0); ABG STANDARD HCO3 21.1 MEQ/L (22.0-26.0); ABG TOTAL CO2 24.6 MEQ/L (22.0-29.0); ABG pH (ARTERIAL) 7.281 UNITS (7.350-7.450)
[2017-03-14] MEDS: PIPERACILLIN/TAZOBACTAM SOD 3.375 GM in D5W MINI-BAG PLUS 50 ML IV SCH (16:40)
[2017-03-14] MEDS ORDERED: NALOXONE INJ 0.4 MG/1 ML VIAL (J2310) IV STA ×2 (18:08→21:35)
[2017-03-15] VITALS (11 sets, daily range): BP systolic 128–167; BP diastolic 72–95; O2SAT 94–95
[2017-03-15] MEDS: PIPERACILLIN/TAZOBACTAM SOD 3.375 GM in D5W MINI-BAG PLUS 50 ML IV SCH (01:16)
[2017-03-15] MEDS: HEPARIN SOD (PORCINE) 5000 UNITS/ML VIAL SC SCH ×3 (07:35→21:04)
[2017-03-15] MEDS: NS 1,000 ML IV SCH ×2 (07:37→12:54)
[2017-03-15 08:03] LABS: BASO % 0.1 % (0.0-1.0); EOS # 0.1 K/mm3 (0.0-0.50); EOS % 1.2 % (0.0-3.0); LARGE UNSTAINED CELL # 0.2 K/mm3 (0.0-0.4); LARGE UNSTAINED CELL % 1.9 % (0.0-4.0); LYMPH # 1.7 K/mm3 (1.5-4.5); LYMPH % 16.7 % (24.0-44.0); MEAN CORPUSCULAR HGB CONC 32.4 g/dl (32.0-36.5); MEAN CORPUSCULAR VOLUME 86.5 fl (80.0-96.0); MONO # 0.5 K/mm3 (0.0-0.8); MONO % 5.1 % (0.0-5.0); NEUTROPHILS # 7.4 K/mm3 (1.8-7.7); PLATELET COUNT, AUTOMATED 154 k/mm3 (150-450); RED CELL DISTRIBUTION WIDTH 13.7 % (11.5-14.5); WHITE BLOOD COUNT 9.9 K/mm3 (4.0-10.0)
[2017-03-15 08:28] LABS: ANION GAP 6 MEQ/L (8-16); BLOOD UREA NITROGEN 16 MG/DL (7-18); CALCIUM LEVEL 7.9 MG/DL (8.5-10.1); CARBON DIOXIDE LEVEL 28 MEQ/L (21-32); CHLORIDE LEVEL 107 MEQ/L (98-107); GLUCOSE, FASTING 104 MG/DL (70-105); SODIUM LEVEL 141 MEQ/L (136-145)
[2017-03-15 08:32] LABS: GLOMERULAR FILTRATION RATE > 60.0 (>56)
[2017-03-15 09:16] LABS: ABG BASE EXCESS 6.6 (-2.0-2.0); ABG HCO3 31.5 MEQ/L (22.0-26.0); ABG PARTIAL PRESSURE CO2 46.5 mmHg (35.0-45.0); ABG PARTIAL PRESSURE O2 104.8 mmHg (75.0-100.0); ABG STANDARD HCO3 30.5 MEQ/L (22.0-26.0); ABG TOTAL CO2 32.9 MEQ/L (22.0-29.0); ABG pH (ARTERIAL) 7.449 UNITS (7.350-7.450)
[2017-03-15] MEDS: PANTOPRAZOLE 40MG INJ (PROTONIX) (C9113) IV SCH (09:46)
--- NOTE | 2017-03-15 10:09 | IPN ---
DATE: 03/15/2017 TIME PATIENT WAS SEEN: This morning at 7:00 a.m. The patient has been seen and examined and has had no acute events overnight. The patient continued to be on BiPAP and did require additional Narcan overnight. This morning, he was alert, awake and oriented times three. He denies any discomfort anywhere. He admitted that he likely overdosed on pain medication. According to himself, he might be overdosed on oxycodone 10 mg and he might have taken four pills. Otherwise, he denies any chest pain, any abdominal pains, nausea, vomiting, diarrhea, or constipation. He denies any problem with urination. He denies any other current new complaints. PHYSICAL EXAMINATION: VITAL SIGNS: Temperature 98.1. Pulse 89. Respirations 15. Blood pressure 132/75. Oxygen satting at 96% on BiPAP with setting of 16/8. Input was 3650 and output was 1250 with balance of positive 2.4 liters. FiO2 was 30. Tidal volume was 450. GENERAL: The patient is a well developed well nourished middle aged male who was alert, awake and oriented times three. He does not appear to be in distress on BiPAP. HEENT: Normocephalic, atraumatic. Extraocular muscles intact. Mucous membranes moist. Neck supple. No neck lymphadenopathy. CARDIOVASCULAR: Regular rate and rhythm. S1, S2 normal. LUNGS: Clear to auscultate bilaterally. No wheeze, rales or rhonchi. ABDOMEN: Positive bowel sounds. Soft. Nondistended. No peritoneal signs. Normal pulses. EXTREMITIES: No edema, clubbing or cyanosis. SKIN: Warm and dry. NEUROLOGIC: Cranial nerves II-XII intact. No focal neurological deficit. LABORATORIES: WBC 9.9 reduced from yesterday of 14.4, hemoglobin 11.5, hematocrit 35.5 with a platelet count of 154. Sodium 141, potassium 4, chloride 107, bicarbonate 28, BUN 16, creatinine 0.8, GFR greater than 60, fasting glucose 104, calcium 7.9, magnesium 2.1. Ammonia level 33. ABG this morning shows pH of 7.449, pCO2 46.5, pO2 104.8 with oxygen saturation at 97.9%, base excess positive 6.6. ASSESSMENT AND PLAN: 51-year-old male with significant psychiatric history and chronic pain and substance abuse who presented with: 1. Acute hypercapnic, hypoxic respiratory failure likely secondary to overdose, opiate and benzodiazepine. The patient did receive two doses of Narcan yesterday and one dose of Narcan overnight. The patient was continued on BiPAP 26/04. ABG this morning shows improvement with a pH of 7.45, pCO2 of 46.5 and pO2 of 104. In addition, the patient might have been aspirated on admission as well with an elevated white count and patchy infiltrates on chest x-ray. The patient's white count came down significantly from 14.4 to 9.9. In addition, the patient had no fever overnight. Therefore, the suspicion is patient likely has pneumonitis from aspiration. The patient's BiPAP will be discontinued this morning and will possibly start feeding patient after one hour if patient tolerates off BiPAP. 2. Aspiration with pneumonitis. The patient did not have fever yesterday. The patient's white count has dropped from 14.4 to 9.9. The patient denies any chest discomfort. Auscultation shows clear on both sides of his lungs. Zosyn has been discontinued today due to this is likely pneumonitis. Will continue to monitor. 3. Overdose with chronic pain. It is unclear the exact amount of patient overdosed now; however, according to him, he had taken four pills of oxycodone 10 mg each. Will continue to monitor. 4. Acute renal failure with creatinine of 1.68 on admission. Today's creatinine is 0.8. The patient did have adequate urine output last night. 5. Disposition. The patient has improved significantly compared to the day prior. The patient likely has pneumonitis. The patient is completely awake, alert and oriented at the time of examination. BiPAP has been discontinued. Will possibly start feeding patient today if patient can tolerate off BiPAP. The patient has been discussed with the attending doctor, Dr. Martínez. My preceptor for this patient encounter was Dr. Rob Martínez. The preceptor was physically present in the room during the encounter and was fully available. As needed, all aspects of the patient interview, examination, medical decision making process, and medical care plan development were reviewed and approved by the preceptor. The preceptor is aware and concurs with the plan as stated in the body of this note and will attest to such by his/her cosignature. Rob White< conducted an independent h and p. I agree with the assessment as outlined above. MTDD
--- NOTE | 2017-03-15 17:35 | IPN ---
DATE: 03/15/2017 SUBJECTIVE: Patient seen and examined in the room today. Patient is wearing BiPAP. Patient stated that he us feeling better. Patient mention is also improving. Patient stated that he got the Vicodin from his brother. OBJECTIVE: VITAL SIGNS Temperature is 98.6, pulse is 76, respirations 16, blood pressure is 161/80, pulse oximetry 97% on the BiPAP. GENERAL: No acute distress. Alert and oriented times three. HEENT: Normocephalic. Extraocular motors grossly intact. CARDIOVASCULAR: Positive S1, S2 regular rate. LUNGS: Clear to auscultation bilateral. ABDOMEN: Soft, nontender, nondistended. Bowel sounds present. No rebound to guarding. EXTREMITIES: No edema. No cyanosis LABORATORY DATA: WBC is 9.9, hemoglobin is 11.5, hematocrit 35.5, platelet count is 154. Sodium 141, potassium 4, chloride is 107, carbon dioxide 28, BUN is 16, creatinine 0.8, GFR greater than 60, fasting glucose is 104, calcium is 7.9, magnesium 2.1, ammonia level 33. ASSESSMENT/PLAN: 1. Acute respiratory failure. Patient is on BiPAP. Is in the process of weaning off the patient on the IVPB. Appreciate head wrestling coach assistance. Patient's mentation is improving. Patient had acute respiratory failure most likely secondary to medication overdose. 2. History of seizure disorder. Continue to monitor. Medications are on hold due to aspiration and the patient's altered mental status. No change previously however we will restart patient's seizure medication. 3. History of polysubstance abuse. The patient had a history of marijuana, heroin and amphetamine use detected by urine toxicology in the past. Currently the most recent urine toxicology is positive for opiate and benzodiazepine. 4. Chronic back pain. Patient is being evaluated by pain management during his last hospitalization. It is recommended that patient should continue with NSAID. No narcotics were recommended. 5. Severe depression requiring multiple emergency department (ED) visits and Inpatient Mental Health Unit ([facility]HU) admissions. 6. Deep vein thrombosis (DVT) prophylaxis. Patient will be on heparin.
[2017-03-16 06:00] VITALS: BP 168/90
[2017-03-16 06:01] LABS: MEAN CORPUSCULAR HEMOGLOBIN 28.4 pg (27.0-33.0); MEAN CORPUSCULAR HGB CONC 33.8 g/dl (32.0-36.5); MEAN CORPUSCULAR VOLUME 84.1 fl (80.0-96.0); RED CELL DISTRIBUTION WIDTH 13.5 % (11.5-14.5); WHITE BLOOD COUNT 7.1 K/mm3 (4.0-10.0)
[2017-03-16 06:19] LABS: ANION GAP 6 MEQ/L (8-16); BLOOD UREA NITROGEN 11 MG/DL (7-18); CALCIUM LEVEL 8.4 MG/DL (8.5-10.1); CARBON DIOXIDE LEVEL 29 MEQ/L (21-32); CHLORIDE LEVEL 110 MEQ/L (98-107); CREATININE FOR GFR 0.89 MG/DL (0.70-1.30); GLOMERULAR FILTRATION RATE > 60.0 (>56); GLUCOSE, FASTING 108 MG/DL (70-105); POTASSIUM SERUM 3.8 MEQ/L (3.5-5.1); SODIUM LEVEL 145 MEQ/L (136-145)
[2017-03-16] MEDS: HEPARIN SOD (PORCINE) 5000 UNITS/ML VIAL SC SCH (06:49)
[2017-03-16] MEDS ORDERED: LISINOPRIL 20 MG TAB PO SCH (09:00)
[2017-03-16 09:48] VITALS: BP 185/97
--- NOTE | 2017-03-20 22:05 | DSES ---
DATE OF ADMISSION: 03/14/2017 DATE OF DISCHARGE: 03/16/2017 CONSULTANTS: Vocational Teacher, Dr. Rob Martínez. PROCEDURES: None. COMPLICATIONS: None. PRIMARY CARE PROVIDER: Dr. Lawler ADMISSION/DISCHARGE DIAGNOSES: 1. Acute respiratory failure. 2. History of seizure disorder. 3. History of polysubstance abuse. 4. Chronic back pain. 5. Severe depression, required inpatient mental health unit (IMHU) admissions. HOSPITALIZATION COURSE: The patient is a 51-year-old male [facility] for altered mental status change. The patient had acute respiratory failure. The patient was admitted to the ICU. The patient was started on BiPAP and financial institution president, Dr. Rob Martínez consulted. Two doses of Narcan was given to the patient and the patient's mental status started to improve. Initially due to concern for possible aspiration pneumonia the patient was started on empiric antibiotic and it was discontinued. On March 16, 2017, the patient returned to his baseline. The patient is discharged with recommendation to follow with primary care provider in 7 to 10 days. The patient recommended to follow with [facility] drug rehabilitation program on March 17, 2017 in the morning. OBJECTIVE: VITAL SIGNS: Temperature is 98.8, pulse is 77, respirations are 20, blood pressure is 168/90, pulse oximetry 93% on room air. LABORATORY DATA: WBC 7.1, hemoglobin 11.5, hematocrit 34.1, platelet count is 124. Sodium is 145, potassium 3.8, chloride 110, carbon dioxide 29, BUN 11, creatinine 0.89, GFR greater than 60. Fasting glucose 108. Calcium is 8.4. ABG at the time of admission showed pH of 7.22. PCO2 is 74.3, pO2 is 150.9, HCO3 29.7. Urine toxicology showed positive for opiates and positive for benzodiazepine. Alcohol level is negative. Microbiology: Blood cultures are negative after 5 days times two sets. IMAGING STUDIES: CT of the head without contrast on March 14, 2017, showed a normal noncontrast head CT. No evidence of acute intracranial pathology, trauma or injury. Chest x-ray on March 14, 2917 showed cannot exclude bibasilar opacity, right greater than left. CT of cervical spine without contrast on March 14, 2017 showed stable postoperative and moderate multilevel degenerative changes. No acute cervical spine pathology or trauma/injury. DISCHARGE MEDICATIONS: - divalproex 100 mg by mouth twice a day - lisinopril/hydrochlorothiazide 20/25, one tablet by mouth every day - Lyrica 225 mg by mouth four times a day - sertraline 100 mg by mouth every day DISCHARGE INSTRUCTIONS: Discontinue lines. Discharge home. Activity as tolerated. Low salt diet as tolerated. The patient is recommended to follow with primary care provider, Dr. Lawler in 7 to 10 days. The patient recommended to followup with [facility] drug rehabilitation program on March 17, 2017. The patient is recommended not to use narcotics without physician recommendations. DISCHARGE CONDITION: Fair. Discharge took greater than 30 minutes.
[2017-07-11] MEDS ORDERED: PERC5TAB12 PO (14:13)
== END 2017-03-16 16:39 | disposition home or self-care (01) | DRG 812 ==
LOC: M ED 08:03 → EDBD 08:03 → M ED INP 10:17 → M ICU 12:03 → M MSPAV 03-15 19:33
PROVIDERS: ADMIT Internal Medicine; ATTEND Internal Medicine
DX: T40.2X1A Poisoning by other opioids, accidental (unintentional), initial encounter (principal); J96.01 Acute respiratory failure with hypoxia; J69.0 Pneumonitis due to inhalation of food and vomit; J96.02 Acute respiratory failure with hypercapnia; N17.9 Acute kidney failure, unspecified; F17.210 Nicotine dependence, cigarettes, uncomplicated; I10 Essential (primary) hypertension; G40.909 Epilepsy, unspecified, not intractable, without status epilepticus; F32.9 Major depressive disorder, single episode, unspecified; M54.2 Cervicalgia; Z98.1 Arthrodesis status

== ENCOUNTER 2017-04-28 01:27 | Emergency (ER) | payer OTHER ==
[2017-04-28 01:33] VITALS: BP 164/96
[2017-04-28 04:09] LABS: BASO # 0.1 K/mm3 (0.0-0.2); BASO % 0.6 % (0.0-1.0); EOS # 0.3 K/mm3 (0.0-0.50); EOS % 3.2 % (0.0-3.0); LARGE UNSTAINED CELL # 0.2 K/mm3 (0.0-0.4); LARGE UNSTAINED CELL % 1.6 % (0.0-4.0); LYMPH # 3.2 K/mm3 (1.5-4.5); LYMPH % 29.2 % (24.0-44.0); MEAN CORPUSCULAR HEMOGLOBIN 27.5 pg (27.0-33.0); MEAN CORPUSCULAR HGB CONC 33.6 g/dl (32.0-36.5); MEAN CORPUSCULAR VOLUME 81.9 fl (80.0-96.0); MONO # 0.4 K/mm3 (0.0-0.8); MONO % 4.2 % (0.0-5.0); NEUTROPHILS # 6.4 K/mm3 (1.8-7.7); NEUTROPHILS % 61.1 % (36.0-66.0); PLATELET COUNT, AUTOMATED 220 k/mm3 (150-450); RED CELL DISTRIBUTION WIDTH 13.6 % (11.5-14.5); WHITE BLOOD COUNT 10.5 K/mm3 (4.0-10.0)
[2017-04-28 04:15] LABS: ANION GAP 8 MEQ/L (8-16); BLOOD UREA NITROGEN 9 MG/DL (7-18); CALCIUM LEVEL 8.2 MG/DL (8.5-10.1); CARBON DIOXIDE LEVEL 27 MEQ/L (21-32); CHLORIDE LEVEL 107 MEQ/L (98-107); CREATININE FOR GFR 0.97 MG/DL (0.70-1.30); GLOMERULAR FILTRATION RATE > 60.0 (>56); GLUCOSE, FASTING 119 MG/DL (70-105); POTASSIUM SERUM 3.8 MEQ/L (3.5-5.1); SODIUM LEVEL 142 MEQ/L (136-145)
[2017-04-28] MEDS ORDERED: ISOVUE-370 76% 100ML VIAL (Q9967) As Ordered ONE (04:56)
--- NOTE | 2017-04-28 05:30 | REPUSA ---
HISTORY: Facial cellulitis. COMPARISON: Not provided. TECHNIQUE: Multiple thin section helically-acquired axially-displayed and helically acquired coronall y displayed computed tomographic images of the face are obtained from the mandible through the fronta l sinuses, with images obtained at soft tissue and bone window. 2D reformatted images were performed. Postcontrast images were obtained. FINDINGS: Right and orbital subcutaneous fat stranding and soft tissue edema. Right facial soft tissue edema and swelling. Normal bony mineralization. No fractures. Normal orbits. Normal, clear paranasal sinuses. Normal oral and nasal cavities. Enlarged right parotid, probably reactive. Normal infratemporal fossa and deep parapharyngeal spaces with normal muscles of mastication. Normal left parotid and submandibular glands. IMPRESSION: Right periorbital/facial cellulitis. Preseptal cellulitis. No post septal extension of the inflammatory changes. No drainable abscess formation. No evidence of sinusitis. Enlarged right parotid, probably reactive. No venous thrombosis. Thank you for your kind referral of this patient
[2017-04-28] MEDS ORDERED: CLINDAMYCIN 900 MG in APPROPRIATE DILUENT 1 EA IV ONE (05:45)
[2017-04-28] MEDS ORDERED: CLIN150C14 PO ×2 (06:35→06:36)
--- NOTE | 2017-04-28 12:14 | ED PDOC ---
Post-Departure Follow-Up pt sent certified letter re formal report of ct max facial - needs Christopher Easton MD Apr 28, 2017 12:14
[2017-07-11] MEDS ORDERED: PERC5TAB12 PO (14:13)
== END 2017-04-28 07:06 | disposition home or self-care (01) ==
LOC: M ED 01:27
DX: L03.211 Cellulitis of face (principal)
CPT/HCPCS: 70487; 80048; 85025; 86140; 96374; 99283; Q9967

== ENCOUNTER → 2017-07-27 | Outpatient (REF) | payer MEDICAID, OTHER ==
[~2017-07-27] MED LIST changes: +CLIN150C14 PO
[2017-08-02 10:17] LABS: BENZODIAZEPINES, URINE SCREEN Negative ng/mL (Cutoff=200); METHADONE, URINE SCREEN Negative ng/mL (Cutoff=300); pH, URINE 5.6 (4.5-8.9)
== END ==
LOC: M LAB REF 16:37
PROVIDERS: ATTEND Family Medicine Addiction Medicine
DX: F19.21 Other psychoactive substance dependence, in remission (principal)

== ENCOUNTER → 2017-07-31 | Outpatient (REF) | payer OTHER, MEDICAID ==
[2017-07-31 14:03] LABS: BASO # 0.1 10^3/uL (0.0-0.2); BASO % 0.6 % (0.0-1.0); EOS # 0.3 10^3/uL (0.0-0.50); EOS % 3.5 % (0.0-3.0); IMMATURE GRANULOCYTE % 0.3 % (0-0); LYMPH # 2.1 10^3/uL (1.5-4.5); LYMPH % 27.3 % (24.0-44.0); MEAN CORPUSCULAR HEMOGLOBIN 26.3 pg (27.0-33.0); MEAN CORPUSCULAR HGB CONC 33.2 g/dl (32.0-36.5); MEAN CORPUSCULAR VOLUME 79.4 fl (80.0-96.0); MONO # 0.6 10^3/uL (0.0-0.8); MONO % 7.1 % (0.0-5.0); NEUTROPHILS # 4.8 10^3/uL (1.8-7.7); NEUTROPHILS % 61.2 % (36.0-66.0); PLATELET COUNT, AUTOMATED 223 10^3/uL (150-450); RED CELL DISTRIBUTION WIDTH 15.7 % (11.5-14.5); WHITE BLOOD COUNT 7.8 10^3/uL (4.0-10.0)
[2017-07-31 14:48] LABS: ALBUMIN 3.3 GM/DL (3.2-5.2); ALBUMIN/GLOBULIN RATIO 0.97 (1.00-1.93); ALKALINE PHOSPHATASE 85 U/L (45-117); ALT/SGPT 291 U/L (12-78); ANION GAP 7 MEQ/L (8-16); AST/SGOT 256 U/L (7-37); BLOOD UREA NITROGEN 7 MG/DL (7-18); CALCIUM LEVEL 8.8 MG/DL (8.5-10.1); CARBON DIOXIDE LEVEL 24 MEQ/L (21-32); CHLORIDE LEVEL 109 MEQ/L (98-107); CREATININE FOR GFR 0.89 MG/DL (0.70-1.30); GLOMERULAR FILTRATION RATE > 60.0 (>56); GLUCOSE, FASTING 100 MG/DL (70-105); POTASSIUM SERUM 3.8 MEQ/L (3.5-5.1); SODIUM LEVEL 140 MEQ/L (136-145); TOTAL PROTEIN 6.7 GM/DL (6.4-8.2)
== END ==
LOC: M LAB REF 12:45
PROVIDERS: ATTEND Family Medicine Addiction Medicine
DX: F19.21 Other psychoactive substance dependence, in remission (principal)

== ENCOUNTER → 2017-08-02 | Outpatient (REF) | payer OTHER, MEDICAID ==
[2017-08-10 08:06] LABS: BENZODIAZEPINES, URINE SCREEN Negative ng/mL (Cutoff=200); METHADONE, URINE SCREEN Negative ng/mL (Cutoff=300); NALOXONE RESULT Negative (.); pH, URINE 6.4 (4.5-8.9)
== END ==
LOC: M LAB REF 16:34
PROVIDERS: ATTEND Family Medicine Addiction Medicine
DX: F19.21 Other psychoactive substance dependence, in remission (principal)

== ENCOUNTER → 2017-08-09 | Outpatient (REF) | payer OTHER, MEDICAID | LOC: M LAB REF 12:22 | PROVIDERS: ATTEND Family Medicine Addiction Medicine | DX: F19.21 Other psychoactive substance dependence, in remission (principal) ==

== ENCOUNTER → 2017-08-16 | Outpatient (REF) | payer OTHER, MEDICAID | LOC: M LAB REF 13:16 | PROVIDERS: ATTEND Family Medicine Addiction Medicine | DX: F19.21 Other psychoactive substance dependence, in remission (principal) ==

== ENCOUNTER → 2017-08-25 | Outpatient (REF) | payer OTHER, MEDICAID | LOC: M LAB REF 16:52 | PROVIDERS: ATTEND Family Medicine Addiction Medicine | DX: F19.21 Other psychoactive substance dependence, in remission (principal) ==

== ENCOUNTER → 2017-09-01 | Outpatient (REF) | payer OTHER, MEDICAID | LOC: M LAB REF 16:46 | PROVIDERS: ATTEND Family Medicine Addiction Medicine | DX: F19.21 Other psychoactive substance dependence, in remission (principal) ==

== ENCOUNTER → 2017-09-15 | Outpatient (REF) | payer OTHER, MEDICAID | LOC: M LAB REF 09-18 12:22 | DX: F19.21 Other psychoactive substance dependence, in remission (principal) | CPT/HCPCS: 80362 ==

== ENCOUNTER → 2017-09-22 | Outpatient (REF) | payer OTHER, MEDICAID | LOC: M LAB REF 18:45 | DX: F19.21 Other psychoactive substance dependence, in remission (principal) | CPT/HCPCS: 80362 ==

== ENCOUNTER → 2017-09-29 | Outpatient (REF) | payer OTHER, MEDICAID | LOC: M LAB REF 16:38 | DX: F19.21 Other psychoactive substance dependence, in remission (principal) ==

== ENCOUNTER → 2017-10-06 | Outpatient (REF) | payer OTHER, MEDICAID | LOC: M LAB REF 18:30 | DX: F19.21 Other psychoactive substance dependence, in remission (principal) ==

== ENCOUNTER → 2017-10-13 | Outpatient (REF) | payer OTHER, MEDICAID | LOC: M LAB REF 19:14 | DX: F19.21 Other psychoactive substance dependence, in remission (principal) ==

== ENCOUNTER → 2017-10-20 | Outpatient (REF) | payer OTHER, MEDICAID | LOC: M LAB REF 19:13 | DX: F19.21 Other psychoactive substance dependence, in remission (principal) ==

== ENCOUNTER → 2017-10-25 | Outpatient (REF) | payer OTHER, MEDICAID | LOC: M LAB REF 19:04 | DX: F19.21 Other psychoactive substance dependence, in remission (principal) | CPT/HCPCS: 80362 ==

== ENCOUNTER 2017-10-29 11:28 | Inpatient (IN) | payer MEDICAID, OTHER ==
[2017-10-29 12:26] LABS: HEMATOCRIT 40.9 % (42.0-52.0); HEMOGLOBIN 13.7 g/dl (14.0-18.0); MEAN CORPUSCULAR HGB CONC 33.5 g/dl (32.0-36.5); MEAN CORPUSCULAR VOLUME 80.7 fl (80.0-96.0); PLATELET COUNT, AUTOMATED 217 10^3/uL (150-450); RED BLOOD COUNT 5.07 10^6/uL (4.30-6.10); RED CELL DISTRIBUTION WIDTH 14.3 % (11.5-14.5); WHITE BLOOD COUNT 7.4 10^3/uL (4.0-10.0)
[2017-10-29 12:44] LABS: ALBUMIN 3.7 GM/DL (3.2-5.2); ALBUMIN/GLOBULIN RATIO 1.09 (1.00-1.93); ALKALINE PHOSPHATASE 72 U/L (45-117); ALT/SGPT 21 U/L (12-78); ANION GAP 10 MEQ/L (8-16); AST/SGOT 18 U/L (7-37); BILIRUBIN,DIRECT 0.2 MG/DL (0.0-0.2); BILIRUBIN,TOTAL 0.5 MG/DL (0.2-1.0); BLOOD UREA NITROGEN 7 MG/DL (7-18); CALCIUM LEVEL 8.7 MG/DL (8.5-10.1); CARBON DIOXIDE LEVEL 24 MEQ/L (21-32); CHLORIDE LEVEL 106 MEQ/L (98-107); CREATININE FOR GFR 0.98 MG/DL (0.70-1.30); ETHYL ALCOHOL (ETHANOL) < 0.003 % (0.000-0.010); GLOMERULAR FILTRATION RATE > 60.0 (>56); GLUCOSE, FASTING 138 MG/DL (70-100); POTASSIUM SERUM 3.4 MEQ/L (3.5-5.1); SALICYLATE LEVEL < 1.7 MG/DL (5.0-30.0); SODIUM LEVEL 140 MEQ/L (136-145); TOTAL PROTEIN 7.1 GM/DL (6.4-8.2); VALPROIC ACID (DEPAKOTE) < 3.0 UG/ML (50.0-100.0)
[2017-10-29 12:46] LABS: ACETAMINOPHEN LEVEL < 2.0 UG/ML (10.0-30.0)
[2017-10-29] MEDS: POTASSIUM CHLORIDE 10 MEQ SR TABLET PO (13:13)
[2017-10-29 14:05] LABS: AMPHETAMINES LEVEL URINE POSITIVE (NEGATIVE); BARBITURATES URINE NEGATIVE (NEGATIVE); BENZODIAZEPINES URINE NEGATIVE (NEGATIVE); CANNABINOIDS URINE POSITIVE (NEGATIVE); COCAINE METABOLITE URINE NEGATIVE (NEGATIVE); METHADONE URINE NEGATIVE (NEGATIVE); OPIATES URINE NEGATIVE (NEGATIVE); PHENCYCLIDINE URINE NEGATIVE (NEGATIVE)
[2017-10-29] MEDS ORDERED: MOM 30ML SUSPENSION UDC PO (15:15)
[2017-10-29] MEDS: cloNIDine 0.1 MG TAB PO (16:39)
[2017-10-30 07:23] LABS: ANION GAP 7 MEQ/L (8-16); BLOOD UREA NITROGEN 8 MG/DL (7-18); CALCIUM LEVEL 9.3 MG/DL (8.5-10.1); CARBON DIOXIDE LEVEL 27 MEQ/L (21-32); CHLORIDE LEVEL 108 MEQ/L (98-107); CREATININE FOR GFR 0.95 MG/DL (0.70-1.30); GLOMERULAR FILTRATION RATE > 60.0 (>56); GLUCOSE, FASTING 112 MG/DL (70-100); POTASSIUM SERUM 4.3 MEQ/L (3.5-5.1); SODIUM LEVEL 142 MEQ/L (136-145)
[2017-10-30] MEDS: LISINOPRIL 20 MG TAB PO (09:30)
[2017-10-30] MEDS: cloNIDine 0.1 MG TAB PO (09:31)
[2017-10-30] MEDS: BUPRENORPHINE/NALOXONE 8-2MG SUBLINGUAL TABLET(SUBOXONE) SL ×3 (11:25→21:20)
[2017-10-30] MEDS: DIVALPROEX 500 MG TAB PO ×2 (11:26→21:20)
[2017-10-30] MEDS: PREGABALIN 25 MG CAP (LYRICA) PO ×3 (12:16→21:20)
[2017-10-30] MEDS: PREGABALIN 100 MG CAP (LYRICA) PO ×3 (12:16→21:20)
[2017-10-30] MEDS: SERTRALINE 100 MG TAB PO (14:35)
[2017-10-30] MEDS ORDERED: BUPRENORPHINE/NALOXONE 8-2MG SUBLINGUAL TABLET(SUBOXONE) SL (16:00)
[2017-10-30] MEDS: NICOTINE 21MG/24HR 1 EA TRANSDERMAL TD (17:16)
[2017-10-30] MEDS: traZODone 50 MG TAB PO (21:20)
[2017-10-31] MEDS: DIVALPROEX 500 MG TAB PO ×2 (08:17→21:22)
[2017-10-31] MEDS: PREGABALIN 100 MG CAP (LYRICA) PO ×4 (08:17→21:22)
[2017-10-31] MEDS: SERTRALINE 100 MG TAB PO (08:17)
[2017-10-31] MEDS: NICOTINE 21MG/24HR 1 EA TRANSDERMAL TD (08:17)
[2017-10-31] MEDS: PREGABALIN 25 MG CAP (LYRICA) PO ×4 (08:17→21:21)
[2017-10-31] MEDS: LISINOPRIL 20 MG TAB PO (08:18)
[2017-10-31] MEDS: BUPRENORPHINE/NALOXONE 8-2MG SUBLINGUAL TABLET(SUBOXONE) SL ×3 (09:39→21:21)
[2017-10-31] MEDS: ACETAMINOPHEN TAB 650MG DOSE (2X325MG) PO (12:11)
[2017-10-31] MEDS: traZODone 100 MG TAB PO (22:02)
[2017-11-01] MEDS: PREGABALIN 25 MG CAP (LYRICA) PO ×4 (09:00→21:32)
[2017-11-01] MEDS: SERTRALINE 100 MG TAB PO (09:00)
[2017-11-01] MEDS: NICOTINE 21MG/24HR 1 EA TRANSDERMAL TD (09:00)
[2017-11-01] MEDS: LISINOPRIL 20 MG TAB PO (09:01)
[2017-11-01] MEDS: DIVALPROEX 500 MG TAB PO ×2 (09:01→21:32)
[2017-11-01] MEDS: PREGABALIN 100 MG CAP (LYRICA) PO ×4 (09:01→21:32)
[2017-11-01] MEDS: BUPRENORPHINE/NALOXONE 8-2MG SUBLINGUAL TABLET(SUBOXONE) SL ×3 (09:58→21:32)
[2017-11-01] MEDS ORDERED: LORazepam 2 MG TAB PO (11:10)
[2017-11-01] MEDS: ACETAMINOPHEN TAB 650MG DOSE (2X325MG) PO (21:32)
[2017-11-01] MEDS: traZODone 100 MG TAB PO (21:32)
[2017-11-02] MEDS: NICOTINE 21MG/24HR 1 EA TRANSDERMAL TD (08:10)
[2017-11-02] MEDS: LISINOPRIL 20 MG TAB PO (08:10)
[2017-11-02] MEDS: BUPRENORPHINE/NALOXONE 8-2MG SUBLINGUAL TABLET(SUBOXONE) SL ×3 (08:10→22:04)
[2017-11-02] MEDS: DIVALPROEX 500 MG TAB PO ×2 (08:10→22:05)
[2017-11-02] MEDS: PREGABALIN 25 MG CAP (LYRICA) PO ×4 (08:11→22:05)
[2017-11-02] MEDS: SERTRALINE 100 MG TAB PO (08:11)
[2017-11-02] MEDS: PREGABALIN 100 MG CAP (LYRICA) PO ×4 (08:11→22:05)
[2017-11-02] MEDS: traZODone 100 MG TAB PO (22:05)
[2017-11-02] MEDS: ACETAMINOPHEN TAB 650MG DOSE (2X325MG) PO (22:07)
[2017-11-03] MEDS: LISINOPRIL 20 MG TAB PO (08:31)
[2017-11-03] MEDS: PREGABALIN 25 MG CAP (LYRICA) PO ×4 (08:31→21:24)
[2017-11-03] MEDS: DIVALPROEX 500 MG TAB PO ×2 (08:31→21:24)
[2017-11-03] MEDS: PREGABALIN 100 MG CAP (LYRICA) PO ×4 (08:31→21:24)
[2017-11-03] MEDS: SERTRALINE 100 MG TAB PO (08:31)
[2017-11-03] MEDS: NICOTINE 21MG/24HR 1 EA TRANSDERMAL TD (08:32)
[2017-11-03] MEDS: BUPRENORPHINE/NALOXONE 8-2MG SUBLINGUAL TABLET(SUBOXONE) SL ×2 (09:41→21:26)
[2017-11-03] MEDS: traZODone 100 MG TAB PO (21:24)
[2017-11-04 07:20] LABS: ALBUMIN 3.3 GM/DL (3.2-5.2); ALKALINE PHOSPHATASE 67 U/L (45-117); ALT/SGPT 17 U/L (12-78); ANION GAP 2 MEQ/L (8-16); AST/SGOT 16 U/L (7-37); BILIRUBIN,TOTAL 0.2 MG/DL (0.2-1.0); BLOOD UREA NITROGEN 12 MG/DL (7-18); CALCIUM LEVEL 8.8 MG/DL (8.5-10.1); CARBON DIOXIDE LEVEL 37 MEQ/L (21-32); CHLORIDE LEVEL 104 MEQ/L (98-107); CREATININE FOR GFR 0.96 MG/DL (0.70-1.30); GLOMERULAR FILTRATION RATE > 60.0 (>56); GLUCOSE, FASTING 115 MG/DL (70-100); POTASSIUM SERUM 4.9 MEQ/L (3.5-5.1); SODIUM LEVEL 143 MEQ/L (136-145); TOTAL PROTEIN 6.3 GM/DL (6.4-8.2); VALPROIC ACID (DEPAKOTE) 74.8 UG/ML (50.0-100.0)
[2017-11-04] MEDS: SERTRALINE 100 MG TAB PO (09:14)
[2017-11-04] MEDS: PREGABALIN 100 MG CAP (LYRICA) PO ×4 (09:14→21:45)
[2017-11-04] MEDS: ACETAMINOPHEN TAB 650MG DOSE (2X325MG) PO (09:15)
[2017-11-04] MEDS: LISINOPRIL 20 MG TAB PO (09:15)
[2017-11-04] MEDS: PREGABALIN 25 MG CAP (LYRICA) PO ×4 (09:15→21:45)
[2017-11-04] MEDS: DIVALPROEX 500 MG TAB PO ×2 (09:15→21:46)
[2017-11-04] MEDS: NICOTINE 21MG/24HR 1 EA TRANSDERMAL TD (09:16)
[2017-11-04] MEDS: BUPRENORPHINE/NALOXONE 8-2MG SUBLINGUAL TABLET(SUBOXONE) SL ×3 (09:16→21:46)
[2017-11-04] MEDS: traZODone 100 MG TAB PO (21:45)
[2017-11-05] MEDS: NICOTINE 21MG/24HR 1 EA TRANSDERMAL TD (08:47)
[2017-11-05] MEDS: SERTRALINE 100 MG TAB PO (08:47)
[2017-11-05] MEDS: PREGABALIN 25 MG CAP (LYRICA) PO ×4 (08:48→21:48)
[2017-11-05] MEDS: LISINOPRIL 20 MG TAB PO (08:48)
[2017-11-05] MEDS: BUPRENORPHINE/NALOXONE 8-2MG SUBLINGUAL TABLET(SUBOXONE) SL (08:48)
[2017-11-05] MEDS: PREGABALIN 100 MG CAP (LYRICA) PO ×4 (08:48→21:48)
[2017-11-05] MEDS: DIVALPROEX 500 MG TAB PO ×2 (08:48→21:48)
[2017-11-05] MEDS: BUPRENORPHINE/NALOXONE 2-0.5MG SUBLINGUAL TABLET(SUBOXONE) SL ×2 (17:31→21:48)
[2017-11-05] MEDS: traZODone 100 MG TAB PO (21:48)
[2017-11-06] MEDS: SERTRALINE 100 MG TAB PO (08:25)
[2017-11-06] MEDS: LISINOPRIL 20 MG TAB PO (08:25)
[2017-11-06] MEDS: PREGABALIN 25 MG CAP (LYRICA) PO ×4 (08:25→21:52)
[2017-11-06] MEDS: BUPRENORPHINE/NALOXONE 2-0.5MG SUBLINGUAL TABLET(SUBOXONE) SL ×2 (08:25→21:53)
[2017-11-06] MEDS: DIVALPROEX 500 MG TAB PO ×2 (08:25→21:53)
[2017-11-06] MEDS: PREGABALIN 100 MG CAP (LYRICA) PO ×4 (08:26→21:52)
[2017-11-06] MEDS: NICOTINE 21MG/24HR 1 EA TRANSDERMAL TD (08:26)
[2017-11-06] MEDS: BUPRENORPHINE/NALOXONE 8-2MG SUBLINGUAL TABLET(SUBOXONE) SL (16:18)
[2017-11-07] MEDS: PREGABALIN 100 MG CAP (LYRICA) PO ×4 (08:53→21:00)
[2017-11-07] MEDS: DIVALPROEX 500 MG TAB PO ×2 (08:53→21:00)
[2017-11-07] MEDS: PREGABALIN 25 MG CAP (LYRICA) PO ×4 (08:53→21:00)
[2017-11-07] MEDS: BUPRENORPHINE/NALOXONE 2-0.5MG SUBLINGUAL TABLET(SUBOXONE) SL ×3 (08:53→21:00)
[2017-11-07] MEDS: SERTRALINE 100 MG TAB PO (08:53)
[2017-11-07] MEDS: NICOTINE 21MG/24HR 1 EA TRANSDERMAL TD (08:54)
[2017-11-07] MEDS: LISINOPRIL 20 MG TAB PO (08:54)
[2017-11-07] MEDS: ACETAMINOPHEN TAB 650MG DOSE (2X325MG) PO (21:01)
[2017-11-07] MEDS: traZODone 100 MG TAB PO (22:43)
[2017-11-08] MEDS: DIVALPROEX 500 MG TAB PO ×2 (09:49→21:17)
[2017-11-08] MEDS: PREGABALIN 25 MG CAP (LYRICA) PO ×4 (09:50→21:17)
[2017-11-08] MEDS: LISINOPRIL 20 MG TAB PO (09:50)
[2017-11-08] MEDS: PREGABALIN 100 MG CAP (LYRICA) PO ×4 (09:50→21:16)
[2017-11-08] MEDS: SERTRALINE 100 MG TAB PO (09:50)
[2017-11-08] MEDS: BUPRENORPHINE/NALOXONE 2-0.5MG SUBLINGUAL TABLET(SUBOXONE) SL ×3 (09:50→21:17)
[2017-11-08] MEDS: ACETAMINOPHEN TAB 650MG DOSE (2X325MG) PO ×2 (09:50→21:18)
[2017-11-08] MEDS: NICOTINE 21MG/24HR 1 EA TRANSDERMAL TD (09:52)
[2017-11-08] MEDS: traZODone 100 MG TAB PO (22:14)
[2017-11-09] MEDS: LISINOPRIL 20 MG TAB PO (09:42)
[2017-11-09] MEDS: DIVALPROEX 500 MG TAB PO ×2 (09:42→20:53)
[2017-11-09] MEDS: BUPRENORPHINE/NALOXONE 2-0.5MG SUBLINGUAL TABLET(SUBOXONE) SL ×3 (09:42→20:55)
[2017-11-09] MEDS: NICOTINE 21MG/24HR 1 EA TRANSDERMAL TD (09:43)
[2017-11-09] MEDS: SERTRALINE 100 MG TAB PO (09:43)
[2017-11-09] MEDS: PREGABALIN 100 MG CAP (LYRICA) PO ×2 (09:47→20:54)
[2017-11-09] MEDS: MAALOX 30 ML SUSP *UDC PO ×2 (15:47→22:15)
[2017-11-09] MEDS: traZODone 100 MG TAB PO (20:53)
[2017-11-09] MEDS: ACETAMINOPHEN TAB 650MG DOSE (2X325MG) PO (20:54)
[2017-11-10] MEDS: LISINOPRIL 20 MG TAB PO (09:00)
[2017-11-10] MEDS: DIVALPROEX 500 MG TAB PO ×2 (10:14→21:27)
[2017-11-10] MEDS: BUPRENORPHINE/NALOXONE 2-0.5MG SUBLINGUAL TABLET(SUBOXONE) SL ×2 (10:29→21:28)
[2017-11-10] MEDS: NICOTINE 21MG/24HR 1 EA TRANSDERMAL TD (10:30)
[2017-11-10] MEDS: SERTRALINE 100 MG TAB PO (10:30)
[2017-11-10] MEDS: PREGABALIN 50 MG CAP (LYRICA) PO ×2 (10:30→21:27)
[2017-11-10] MEDS: traZODone 100 MG TAB PO (21:28)
[2017-11-11] MEDS: DIVALPROEX 500 MG TAB PO ×2 (09:10→21:02)
[2017-11-11] MEDS: SERTRALINE 100 MG TAB PO (09:10)
[2017-11-11] MEDS: PREGABALIN 50 MG CAP (LYRICA) PO ×2 (09:10→21:02)
[2017-11-11] MEDS: BUPRENORPHINE/NALOXONE 2-0.5MG SUBLINGUAL TABLET(SUBOXONE) SL ×2 (09:11→21:02)
[2017-11-11] MEDS: LISINOPRIL 20 MG TAB PO (09:11)
[2017-11-11] MEDS: NICOTINE 21MG/24HR 1 EA TRANSDERMAL TD (09:11)
[2017-11-11] MEDS: traZODone 100 MG TAB PO (21:03)
[2017-11-12] MEDS: NICOTINE 21MG/24HR 1 EA TRANSDERMAL TD (08:30)
[2017-11-12] MEDS: SERTRALINE 100 MG TAB PO (08:30)
[2017-11-12] MEDS: LISINOPRIL 20 MG TAB PO (08:30)
[2017-11-12] MEDS: PREGABALIN 50 MG CAP (LYRICA) PO ×2 (08:30→21:02)
[2017-11-12] MEDS: BUPRENORPHINE/NALOXONE 2-0.5MG SUBLINGUAL TABLET(SUBOXONE) SL (08:31)
[2017-11-12] MEDS: DIVALPROEX 500 MG TAB PO ×2 (08:31→21:02)
[2017-11-12] MEDS: VANCOMYCIN ORAL SOL 250MG/5ML ORAL SYRINGE PO ×3 (13:26→21:03)
[2017-11-12] MEDS: BUPRENORPHINE/NALOXONE 8-2MG SUBLINGUAL TABLET(SUBOXONE) SL (21:02)
[2017-11-13] MEDS: VANCOMYCIN ORAL SOL 250MG/5ML ORAL SYRINGE PO ×4 (09:15→21:00)
[2017-11-13] MEDS: PREGABALIN 50 MG CAP (LYRICA) PO (09:15)
[2017-11-13] MEDS: NICOTINE 21MG/24HR 1 EA TRANSDERMAL TD (09:15)
[2017-11-13] MEDS: DIVALPROEX 500 MG TAB PO ×2 (09:16→21:00)
[2017-11-13] MEDS: BUPRENORPHINE/NALOXONE 8-2MG SUBLINGUAL TABLET(SUBOXONE) SL ×2 (09:16→21:01)
[2017-11-13] MEDS: LISINOPRIL 20 MG TAB PO (09:16)
[2017-11-13] MEDS: SERTRALINE 100 MG TAB PO (09:16)
[2017-11-13] MEDS: traZODone 100 MG TAB PO (21:00)
[2017-11-14] MEDS: SERTRALINE 100 MG TAB PO (08:55)
[2017-11-14] MEDS: DIVALPROEX 500 MG TAB PO ×2 (08:55→21:12)
[2017-11-14] MEDS: BUPRENORPHINE/NALOXONE 2-0.5MG SUBLINGUAL TABLET(SUBOXONE) SL ×3 (08:56→21:12)
[2017-11-14] MEDS: NICOTINE 21MG/24HR 1 EA TRANSDERMAL TD (08:56)
[2017-11-14] MEDS: VANCOMYCIN ORAL SOL 250MG/5ML ORAL SYRINGE PO ×4 (08:56→21:14)
[2017-11-14] MEDS: LISINOPRIL 20 MG TAB PO (08:56)
[2017-11-14] MEDS: traZODone 100 MG TAB PO (21:13)
[2017-11-14] MEDS: ACETAMINOPHEN TAB 650MG DOSE (2X325MG) PO (21:15)
[2017-11-15] MEDS: DIVALPROEX 500 MG TAB PO ×2 (09:14→22:44)
[2017-11-15] MEDS: SERTRALINE 100 MG TAB PO (09:14)
[2017-11-15] MEDS: LISINOPRIL 20 MG TAB PO (09:14)
[2017-11-15] MEDS: BUPRENORPHINE/NALOXONE 2-0.5MG SUBLINGUAL TABLET(SUBOXONE) SL ×2 (09:14→22:44)
[2017-11-15] MEDS: VANCOMYCIN ORAL SOL 250MG/5ML ORAL SYRINGE PO ×4 (09:14→22:45)
[2017-11-15] MEDS: NICOTINE 21MG/24HR 1 EA TRANSDERMAL TD (09:15)
[2017-11-15] MEDS: traZODone 100 MG TAB PO (22:48)
[2017-11-16] MEDS: LISINOPRIL 20 MG TAB PO (08:53)
[2017-11-16] MEDS: NICOTINE 21MG/24HR 1 EA TRANSDERMAL TD (08:53)
[2017-11-16] MEDS: DIVALPROEX 500 MG TAB PO ×2 (08:53→21:28)
[2017-11-16] MEDS: VANCOMYCIN ORAL SOL 250MG/5ML ORAL SYRINGE PO ×4 (08:53→21:28)
[2017-11-16] MEDS: BUPRENORPHINE/NALOXONE 2-0.5MG SUBLINGUAL TABLET(SUBOXONE) SL ×2 (08:53→21:28)
[2017-11-16] MEDS: SERTRALINE 100 MG TAB PO (08:53)
[2017-11-16] MEDS: traZODone 100 MG TAB PO (21:27)
[2017-11-17] MEDS: VANCOMYCIN ORAL SOL 250MG/5ML ORAL SYRINGE PO ×4 (09:13→20:11)
[2017-11-17] MEDS: NICOTINE 21MG/24HR 1 EA TRANSDERMAL TD (09:14)
[2017-11-17] MEDS: BUPRENORPHINE/NALOXONE 2-0.5MG SUBLINGUAL TABLET(SUBOXONE) SL ×2 (09:15→20:10)
[2017-11-17] MEDS: LISINOPRIL 20 MG TAB PO (09:15)
[2017-11-17] MEDS: SERTRALINE 100 MG TAB PO (09:15)
[2017-11-17] MEDS: DIVALPROEX 500 MG TAB PO ×2 (09:15→20:10)
[2017-11-17] MEDS: ACETAMINOPHEN TAB 650MG DOSE (2X325MG) PO (20:11)
[2017-11-17] MEDS: traZODone 100 MG TAB PO (20:11)
[2017-11-18] MEDS: DIVALPROEX 500 MG TAB PO ×2 (09:01→20:11)
[2017-11-18] MEDS: SERTRALINE 100 MG TAB PO (09:01)
[2017-11-18] MEDS: BUPRENORPHINE/NALOXONE 2-0.5MG SUBLINGUAL TABLET(SUBOXONE) SL ×2 (09:01→20:11)
[2017-11-18] MEDS: VANCOMYCIN ORAL SOL 250MG/5ML ORAL SYRINGE PO ×4 (09:01→20:10)
[2017-11-18] MEDS: LISINOPRIL 20 MG TAB PO (09:02)
[2017-11-18] MEDS: NICOTINE 21MG/24HR 1 EA TRANSDERMAL TD (09:03)
[2017-11-18] MEDS: traZODone 100 MG TAB PO (20:10)
[2017-11-18] MEDS: ACETAMINOPHEN TAB 650MG DOSE (2X325MG) PO (20:10)
[2017-11-19] MEDS: VANCOMYCIN ORAL SOL 250MG/5ML ORAL SYRINGE PO ×4 (08:19→21:09)
[2017-11-19] MEDS: DIVALPROEX 500 MG TAB PO ×2 (08:19→21:06)
[2017-11-19] MEDS: LISINOPRIL 20 MG TAB PO (08:19)
[2017-11-19] MEDS: NICOTINE 21MG/24HR 1 EA TRANSDERMAL TD (08:19)
[2017-11-19] MEDS: SERTRALINE 100 MG TAB PO (08:19)
[2017-11-19] MEDS: BUPRENORPHINE/NALOXONE 2-0.5MG SUBLINGUAL TABLET(SUBOXONE) SL ×2 (08:19→21:06)
[2017-11-19] MEDS: traZODone 100 MG TAB PO (21:06)
[2017-11-20] MEDS: BUPRENORPHINE/NALOXONE 2-0.5MG SUBLINGUAL TABLET(SUBOXONE) SL (06:30)
[2017-11-20] MEDS: LISINOPRIL 20 MG TAB PO (06:30)
[2017-11-20] MEDS: DIVALPROEX 500 MG TAB PO (06:30)
[2017-11-20] MEDS: SERTRALINE 100 MG TAB PO (06:31)
[2017-11-20] MEDS: VANCOMYCIN ORAL SOL 250MG/5ML ORAL SYRINGE PO (06:31)
[2017-11-20] MEDS: NICOTINE 21MG/24HR 1 EA TRANSDERMAL TD (06:32)
== END 2017-11-20 07:30 | DRG 881 ==
LOC: M PSY 11-16 06:59 → M ED 11:28 → M ED INP 15:11 → M PSY 17:10
DX: F32.9 Major depressive disorder, single episode, unspecified (principal); F11.23 Opioid dependence with withdrawal; F14.20 Cocaine dependence, uncomplicated; A04.72 Enterocolitis due to Clostridium difficile, not specified as recurrent; F12.20 Cannabis dependence, uncomplicated; F10.20 Alcohol dependence, uncomplicated; G89.29 Other chronic pain; K59.00 Constipation, unspecified; G40.409 Other generalized epilepsy and epileptic syndromes, not intractable, without status epilepticus; F19.24 Other psychoactive substance dependence with psychoactive substance-induced mood disorder; F17.210 Nicotine dependence, cigarettes, uncomplicated; I10 Essential (primary) hypertension; Z79.899 Other long term (current) drug therapy

== ENCOUNTER 2017-12-29 11:24 | Emergency (ER) | payer OTHER, MEDICAID ==
[2017-12-29 12:12] LABS: BASO # 0.1 10^3/uL (0.0-0.2); BASO % 1.1 % (0.0-1.0); EOS # 0.2 10^3/uL (0.0-0.50); EOS % 3.6 % (0.0-3.0); HEMATOCRIT 36.6 % (42.0-52.0); HEMOGLOBIN 12.6 g/dl (13.5-17.5); IMMATURE GRANULOCYTE % 0.2 % (0-3.0); LYMPH # 2.7 10^3/uL (1.5-4.5); LYMPH % 51.9 % (24.0-44.0); MEAN CORPUSCULAR HGB CONC 34.4 g/dl (32.0-36.5); MEAN CORPUSCULAR VOLUME 81.3 fl (80.0-96.0); MONO # 0.4 10^3/uL (0.0-0.8); MONO % 6.6 % (0.0-5.0); NEUTROPHILS # 1.9 10^3/uL (1.8-7.7); NEUTROPHILS % 36.6 % (36.0-66.0); PLATELET COUNT, AUTOMATED 200 10^3/uL (150-450); RED CELL DISTRIBUTION WIDTH 14.8 % (11.5-14.5); WHITE BLOOD COUNT 5.3 10^3/uL (4.0-10.0)
[2017-12-29 12:26] LABS: INR 1.17; PROTHROMBIN TIME 15.1 SECONDS (12.4-14.5)
[2017-12-29 12:27] LABS: PARTIAL THROMBOPLASTIN TIME 34.3 SECONDS (26.8-37.9)
[2017-12-29 12:37] LABS: ANION GAP 5 MEQ/L (8-16); BLOOD UREA NITROGEN 7 MG/DL (7-18); CALCIUM LEVEL 8.9 MG/DL (8.5-10.1); CARBON DIOXIDE LEVEL 28 MEQ/L (21-32); CHLORIDE LEVEL 109 MEQ/L (98-107); CPK CREATINE PHOSPHOKINASE 117 U/L (39-308); CREATININE FOR GFR 0.93 MG/DL (0.70-1.30); GLOMERULAR FILTRATION RATE > 60.0 (>56); GLUCOSE, FASTING 100 MG/DL (70-100); POTASSIUM SERUM 3.2 MEQ/L (3.5-5.1); SODIUM LEVEL 142 MEQ/L (136-145); TROPONIN I < 0.02 NG/ML (< 0.10)
[2017-12-29 16:53] LABS: BEDSIDE GLUCOSE 115 MG/DL (70-105)
== END 2017-12-29 12:43 | disposition left against medical advice (07) ==
LOC: M ED 11:24
DX: R53.1 Weakness (principal); I10 Essential (primary) hypertension; F19.10 Other psychoactive substance abuse, uncomplicated; G40.909 Epilepsy, unspecified, not intractable, without status epilepticus; F33.9 Major depressive disorder, recurrent, unspecified; M51.9 Unspecified thoracic, thoracolumbar and lumbosacral intervertebral disc disorder; Z98.890 Other specified postprocedural states; Z88.8 Allergy status to other drugs, medicaments and biological substances; Z79.899 Other long term (current) drug therapy
CPT/HCPCS: 71045

== ENCOUNTER 2018-01-17 07:31 | Emergency (ER) | payer OTHER ==
[2018-01-17] MEDS: METHOCARBAMOL 500 MG TAB PO (07:54)
[2018-01-17] MEDS: traMADol 50 MG TAB PO (07:55)
== END 2018-01-17 08:00 | disposition home or self-care (01) ==
LOC: M ED 07:31
DX: M54.12 Radiculopathy, cervical region (principal); G89.29 Other chronic pain; I10 Essential (primary) hypertension; Z91.14 Patient's other noncompliance with medication regimen; F32.9 Major depressive disorder, single episode, unspecified; F17.210 Nicotine dependence, cigarettes, uncomplicated; Z79.899 Other long term (current) drug therapy
CPT/HCPCS: 99282

== ENCOUNTER 2018-01-22 19:35 | Emergency (ER) | payer OTHER ==
[2018-01-22] MEDS: NORCO 5/325MG TABLET (BULK FOR ED) PO (22:30)
== END 2018-01-22 22:37 | disposition home or self-care (01) ==
LOC: M ED 19:35
DX: M79.671 Pain in right foot (principal); M79.672 Pain in left foot; G89.29 Other chronic pain; M54.5 Low back pain; F17.200 Nicotine dependence, unspecified, uncomplicated; Z79.899 Other long term (current) drug therapy; Z88.6 Allergy status to analgesic agent
CPT/HCPCS: 99283

== ENCOUNTER 2018-03-15 12:08 | Emergency (ER) | payer OTHER | END 2018-03-15 13:52 | disposition home or self-care (01) | LOC: M ED 12:08 | DX: M54.41 Lumbago with sciatica, right side (principal); M54.42 Lumbago with sciatica, left side; G89.29 Other chronic pain; I10 Essential (primary) hypertension; R51 Headache; F19.10 Other psychoactive substance abuse, uncomplicated; F17.210 Nicotine dependence, cigarettes, uncomplicated; Z88.8 Allergy status to other drugs, medicaments and biological substances; Z79.899 Other long term (current) drug therapy | CPT/HCPCS: 99282 ==

== ENCOUNTER 2018-03-17 15:48 | Emergency (ER) | payer OTHER ==
[2018-03-17] MEDS: ONDANSETRON 4MG/2ML VIAL (J2405) IV (17:23)
[2018-03-17] MEDS: NS 1,000 ML IV (17:23)
[2018-03-17] MEDS: MORPHINE 4 MG/ML 1ML VIAL/SYRINGE (J2270) IV (17:23)
[2018-03-17 17:36] LABS: BASO # 0.1 10^3/uL (0.0-0.2); BASO % 1.3 % (0.0-1.0); EOS # 0.1 10^3/uL (0.0-0.50); EOS % 1.6 % (0.0-3.0); HEMATOCRIT 44.6 % (42.0-52.0); HEMOGLOBIN 15.2 g/dl (13.5-17.5); IMMATURE GRANULOCYTE % 0.2 % (0-3.0); LYMPH # 1.1 10^3/uL (1.5-4.5); LYMPH % 25.1 % (24.0-44.0); MEAN CORPUSCULAR HEMOGLOBIN 27.4 pg (27.0-33.0); MEAN CORPUSCULAR HGB CONC 34.1 g/dl (32.0-36.5); MEAN CORPUSCULAR VOLUME 80.4 fl (80.0-96.0); MONO # 0.7 10^3/uL (0.0-0.8); MONO % 16.1 % (0.0-5.0); NEUTROPHILS # 2.5 10^3/uL (1.8-7.7); NEUTROPHILS % 55.7 % (36.0-66.0); PLATELET COUNT, AUTOMATED 188 10^3/uL (150-450); RED BLOOD COUNT 5.55 10^6/uL (4.30-6.10); RED CELL DISTRIBUTION WIDTH 13.1 % (11.5-14.5); WHITE BLOOD COUNT 4.5 10^3/uL (4.0-10.0)
[2018-03-17 18:07] LABS: ALBUMIN 3.6 GM/DL (3.2-5.2); ALKALINE PHOSPHATASE 108 U/L (45-117); ALT/SGPT 23 U/L (12-78); ANION GAP 6 MEQ/L (8-16); AST/SGOT 21 U/L (7-37); BILIRUBIN,DIRECT < 0.1 MG/DL (0.0-0.2); BILIRUBIN,TOTAL 0.4 MG/DL (0.2-1.0); BLOOD UREA NITROGEN 5 MG/DL (7-18); CALCIUM LEVEL 8.8 MG/DL (8.5-10.1); CARBON DIOXIDE LEVEL 31 MEQ/L (21-32); CHLORIDE LEVEL 103 MEQ/L (98-107); CREATININE FOR GFR 0.99 MG/DL (0.70-1.30); GLOMERULAR FILTRATION RATE > 60.0 (>56); GLUCOSE, FASTING 112 MG/DL (70-100); LIPASE 171 U/L (73-393); POTASSIUM SERUM 3.3 MEQ/L (3.5-5.1); SODIUM LEVEL 140 MEQ/L (136-145); TOTAL PROTEIN 7.6 GM/DL (6.4-8.2)
[2018-03-17 18:45] LABS: APPEARANCE, URINE CLEAR (CLEAR); BACTERIA, URINE AUTO NEGATIVE (NEGATIVE); BILIRUBIN, URINE AUTO NEGATIVE (NEGATIVE); BLOOD, URINE BLOOD NEGATIVE (NEGATIVE); COLOR, URINE YELLOW (YELLOW); GLUCOSE, URINE (UA) AUTO NEGATIVE (NEGATIVE); KETONE, URINE AUTO NEGATIVE (NEGATIVE); LEUKOCYTE ESTERASE, URINE AUTO NEGATIVE (NEGATIVE); MUCUS, URINE SMALL (NEGATIVE); NITRITE, URINE AUTO NEGATIVE (NEGATIVE); PROTEIN, URINE AUTO NEGATIVE (NEGATIVE); RBC, URINE AUTO 2 /HPF (0-3); SPECIFIC GRAVITY URINE AUTO 1.011 (1.002-1.035); SQUAMOUS EPITHELIAL CELL UR AU 0 /HPF (0-6); WBC, URINE AUTO 0 /HPF (0-3)
== END 2018-03-17 19:27 | disposition home or self-care (01) ==
LOC: M ED 15:48
DX: R10.9 Unspecified abdominal pain (principal); N20.0 Calculus of kidney; N28.1 Cyst of kidney, acquired; Z79.899 Other long term (current) drug therapy; Z88.6 Allergy status to analgesic agent
CPT/HCPCS: J2270

== ENCOUNTER 2018-03-18 14:00 | Inpatient (IN) | payer MEDICAID, OTHER ==
[2018-03-18 16:00] LABS: HEMOGLOBIN 14.9 g/dl (13.5-17.5); MEAN CORPUSCULAR HGB CONC 33.1 g/dl (32.0-36.5); MEAN CORPUSCULAR VOLUME 81.7 fl (80.0-96.0); PLATELET COUNT, AUTOMATED 170 10^3/uL (150-450); RED BLOOD COUNT 5.51 10^6/uL (4.30-6.10); RED CELL DISTRIBUTION WIDTH 13.3 % (11.5-14.5)
[2018-03-18] MEDS: PREGABALIN 100 MG CAP (LYRICA) PO (16:08)
[2018-03-18 16:26] LABS: AMPHETAMINES LEVEL URINE NEGATIVE (NEGATIVE); BARBITURATES URINE NEGATIVE (NEGATIVE); BENZODIAZEPINES URINE NEGATIVE (NEGATIVE); CANNABINOIDS URINE POSITIVE (NEGATIVE); COCAINE METABOLITE URINE NEGATIVE (NEGATIVE); METHADONE URINE NEGATIVE (NEGATIVE); OPIATES URINE POSITIVE (NEGATIVE); PHENCYCLIDINE URINE NEGATIVE (NEGATIVE)
[2018-03-18 16:35] LABS: ALBUMIN 3.6 GM/DL (3.2-5.2); ALKALINE PHOSPHATASE 110 U/L (45-117); ALT/SGPT 23 U/L (12-78); ANION GAP 7 MEQ/L (8-16); AST/SGOT 20 U/L (7-37); BILIRUBIN,DIRECT 0.1 MG/DL (0.0-0.2); BILIRUBIN,TOTAL 0.4 MG/DL (0.2-1.0); BLOOD UREA NITROGEN 6 MG/DL (7-18); CALCIUM LEVEL 8.5 MG/DL (8.5-10.1); CARBON DIOXIDE LEVEL 30 MEQ/L (21-32); CHLORIDE LEVEL 106 MEQ/L (98-107); CREATININE FOR GFR 0.85 MG/DL (0.70-1.30); ETHYL ALCOHOL (ETHANOL) < 0.003 % (0.000-0.010); GLOMERULAR FILTRATION RATE > 60.0 (>56); GLUCOSE, FASTING 88 MG/DL (70-100); POTASSIUM SERUM 3.3 MEQ/L (3.5-5.1); SALICYLATE LEVEL 1.9 MG/DL (5.0-30.0); SODIUM LEVEL 143 MEQ/L (136-145); TOTAL PROTEIN 7.2 GM/DL (6.4-8.2)
[2018-03-18 16:45] LABS: ACETAMINOPHEN LEVEL < 2.0 UG/ML (10.0-30.0)
[2018-03-18] MEDS ORDERED: MOM 30ML SUSPENSION UDC PO (17:00)
[2018-03-18] MEDS ORDERED: MAALOX 30 ML SUSP *UDC PO (17:00)
[2018-03-18] MEDS: POTASSIUM CHLORIDE 10 MEQ SR TABLET PO (18:07)
[2018-03-18] MEDS: LORazepam 1 MG TAB PO (19:12)
[2018-03-18] MEDS: traZODone 50 MG TAB PO (19:48)
[2018-03-18] MEDS: DIVALPROEX 500 MG TAB PO (19:48)
[2018-03-18] MEDS: LISINOPRIL 20 MG TAB PO (19:49)
[2018-03-18] MEDS: ACETAMINOPHEN TAB 650MG DOSE (2X325MG) PO (19:50)
[2018-03-18] MEDS: NICOTINE 21MG/24HR 1 EA TRANSDERMAL TD (20:20)
[2018-03-19] MEDS: ACETAMINOPHEN TAB 650MG DOSE (2X325MG) PO ×2 (01:24→09:18)
[2018-03-19] MEDS: DIVALPROEX 500 MG TAB PO ×2 (09:14→21:39)
[2018-03-19] MEDS: SERTRALINE HCL 50 MG TAB PO (09:14)
[2018-03-19] MEDS: NICOTINE 21MG/24HR 1 EA TRANSDERMAL TD (09:16)
[2018-03-19] MEDS: LISINOPRIL 20 MG TAB PO (09:16)
[2018-03-19] MEDS: LORazepam 1 MG TAB PO ×2 (09:17→14:10)
[2018-03-19 12:44] LABS: ANION GAP 9 MEQ/L (8-16); BLOOD UREA NITROGEN 9 MG/DL (7-18); CALCIUM LEVEL 8.8 MG/DL (8.5-10.1); CARBON DIOXIDE LEVEL 29 MEQ/L (21-32); CHLORIDE LEVEL 106 MEQ/L (98-107); CREATININE FOR GFR 0.98 MG/DL (0.70-1.30); GLOMERULAR FILTRATION RATE > 60.0 (>56); GLUCOSE, FASTING 96 MG/DL (70-100); POTASSIUM SERUM 3.5 MEQ/L (3.5-5.1); SODIUM LEVEL 144 MEQ/L (136-145)
[2018-03-19] MEDS: traZODone 50 MG TAB PO (21:39)
[2018-03-19] MEDS: METHADONE 10 MG TAB (S0109) PO (21:39)
[2018-03-20] MEDS: NICOTINE 21MG/24HR 1 EA TRANSDERMAL TD (08:17)
[2018-03-20] MEDS: SERTRALINE HCL 50 MG TAB PO (08:17)
[2018-03-20] MEDS: DIVALPROEX 500 MG TAB PO ×2 (08:18→20:42)
[2018-03-20] MEDS: METHADONE 10 MG TAB (S0109) PO ×2 (08:18→20:41)
[2018-03-20] MEDS: LISINOPRIL 20 MG TAB PO (08:19)
[2018-03-20] MEDS: PREGABALIN 100 MG CAP (LYRICA) PO ×2 (09:23→20:41)
[2018-03-20] MEDS: traZODone 50 MG TAB PO (20:42)
[2018-03-21 08:25] LABS: VALPROIC ACID (DEPAKOTE) 100.3 UG/ML (50.0-100.0)
[2018-03-21] MEDS: LISINOPRIL 20 MG TAB PO (09:33)
[2018-03-21] MEDS: PREGABALIN 100 MG CAP (LYRICA) PO ×2 (09:33→21:36)
[2018-03-21] MEDS: SERTRALINE HCL 50 MG TAB PO (09:33)
[2018-03-21] MEDS: NICOTINE 21MG/24HR 1 EA TRANSDERMAL TD (09:33)
[2018-03-21] MEDS: DIVALPROEX 500 MG TAB PO ×2 (09:35→21:36)
[2018-03-21] MEDS: METHADONE 10 MG TAB (S0109) PO (09:35)
[2018-03-21 11:34] LABS: HEPATITIS B SURFACE ANTIGEN NEGATIVE (NEGATIVE)
[2018-03-21 11:43] LABS: HEPATITIS B CORE ANTIBODY IGM NEGATIVE (NEGATIVE)
[2018-03-21 11:45] LABS: HEPATITIS A ANTIBODY IGM NEGATIVE (NEGATIVE)
[2018-03-21] MEDS: ACETAMINOPHEN TAB 650MG DOSE (2X325MG) PO ×2 (12:10→23:49)
[2018-03-21 12:52] LABS: HEPATITIS C VIRUS ABY INDEX > 11.0 INDEX (<0.8)
[2018-03-21] MEDS: traZODone 50 MG TAB PO (21:36)
[2018-03-22] MEDS: DIVALPROEX 250 MG TAB PO (09:03)
[2018-03-22] MEDS: PREGABALIN 100 MG CAP (LYRICA) PO ×2 (09:03→21:23)
[2018-03-22] MEDS: NICOTINE 21MG/24HR 1 EA TRANSDERMAL TD (09:04)
[2018-03-22] MEDS: METHADONE 10 MG TAB (S0109) PO (09:04)
[2018-03-22] MEDS: LISINOPRIL 20 MG TAB PO (09:04)
[2018-03-22] MEDS: CitaloPRAM (CeleXA) 20 MG TAB PO (09:04)
[2018-03-22 09:57] LABS: VALPROIC ACID (DEPAKOTE) 82.9 UG/ML (50.0-100.0)
[2018-03-22] MEDS: DIVALPROEX 500 MG TAB PO (21:22)
[2018-03-22] MEDS: traZODone 50 MG TAB PO (21:23)
[2018-03-22] MEDS: ACETAMINOPHEN TAB 650MG DOSE (2X325MG) PO (21:24)
[2018-03-23] MEDS: LISINOPRIL 20 MG TAB PO (08:15)
[2018-03-23] MEDS: PREGABALIN 100 MG CAP (LYRICA) PO (08:15)
[2018-03-23] MEDS: DIVALPROEX 250 MG TAB PO (08:15)
[2018-03-23] MEDS: METHADONE 5 MG TAB (S0109) PO (08:16)
[2018-03-23] MEDS: NICOTINE 21MG/24HR 1 EA TRANSDERMAL TD (08:17)
[2018-03-23] MEDS: CitaloPRAM (CeleXA) 20 MG TAB PO (08:17)
[2018-03-24 00:14] LABS: HCV RNA NAA QUALITATIVE Negative (Negative)
== END 2018-03-23 13:30 | disposition home or self-care (01) | DRG 885 ==
LOC: M ED 14:00 → M ED INP 16:51 → M PSY 18:40
DX: F33.2 Major depressive disorder, recurrent severe without psychotic features (principal); F11.24 Opioid dependence with opioid-induced mood disorder; F17.210 Nicotine dependence, cigarettes, uncomplicated; G89.29 Other chronic pain; I10 Essential (primary) hypertension; E87.6 Hypokalemia; G40.409 Other generalized epilepsy and epileptic syndromes, not intractable, without status epilepticus; F41.9 Anxiety disorder, unspecified; Z87.81 Personal history of (healed) traumatic fracture; Z79.899 Other long term (current) drug therapy; Z88.6 Allergy status to analgesic agent; Z87.820 Personal history of traumatic brain injury

== ENCOUNTER 2018-04-07 04:22 | Emergency (ER) | payer MEDICAID ==
[2018-04-07] MEDS: BACTRIM 160MG/800MG DS TAB PO (07:03)
[2018-04-07] MEDS: ACETAMINOPH W/CODEINE #3 TAB UD PO (07:06)
[2018-04-07] MEDS: NYSTATIN 100,000 UNITS/GM TOPICAL PWD 15 GM TOP (07:19)
== END 2018-04-07 07:49 | disposition home or self-care (01) ==
LOC: M ED 04:22
DX: L02.215 Cutaneous abscess of perineum (principal); L03.115 Cellulitis of right lower limb; B35.3 Tinea pedis; I10 Essential (primary) hypertension; I25.10 Atherosclerotic heart disease of native coronary artery without angina pectoris; F41.9 Anxiety disorder, unspecified; F33.9 Major depressive disorder, recurrent, unspecified; I73.9 Peripheral vascular disease, unspecified; Z79.899 Other long term (current) drug therapy; Z88.8 Allergy status to other drugs, medicaments and biological substances; F17.210 Nicotine dependence, cigarettes, uncomplicated; F19.21 Other psychoactive substance dependence, in remission
CPT/HCPCS: 99283

== ENCOUNTER 2018-04-29 10:57 | Inpatient (IN) | payer MEDICAID, OTHER ==
[2018-04-29] MEDS: CitaloPRAM (CeleXA) 20 MG TAB PO (09:00)
[2018-04-29 12:19] LABS: HEMATOCRIT 45.5 % (42.0-52.0); HEMOGLOBIN 14.8 g/dl (13.5-17.5); MEAN CORPUSCULAR HGB CONC 32.5 g/dl (32.0-36.5); MEAN CORPUSCULAR VOLUME 79.8 fl (80.0-96.0); PLATELET COUNT, AUTOMATED 253 10^3/uL (150-450); RED CELL DISTRIBUTION WIDTH 14.6 % (11.5-14.5); WHITE BLOOD COUNT 5.4 10^3/uL (4.0-10.0)
[2018-04-29 12:47] LABS: VALPROIC ACID (DEPAKOTE) < 3.0 UG/ML (50.0-100.0)
[2018-04-29 12:54] LABS: ALBUMIN 3.5 GM/DL (3.2-5.2); ALBUMIN/GLOBULIN RATIO 0.95 (1.00-1.93); ALKALINE PHOSPHATASE 91 U/L (45-117); ALT/SGPT 55 U/L (12-78); ANION GAP 8 MEQ/L (8-16); AST/SGOT 42 U/L (7-37); BILIRUBIN,DIRECT 0.1 MG/DL (0.0-0.2); BILIRUBIN,TOTAL 0.5 MG/DL (0.2-1.0); BLOOD UREA NITROGEN 6 MG/DL (7-18); CALCIUM LEVEL 8.9 MG/DL (8.5-10.1); CARBON DIOXIDE LEVEL 27 MEQ/L (21-32); CHLORIDE LEVEL 109 MEQ/L (98-107); CREATININE FOR GFR 0.82 MG/DL (0.70-1.30); ETHYL ALCOHOL (ETHANOL) 0.006 % (0.000-0.010); GLOMERULAR FILTRATION RATE > 60.0 (>56); GLUCOSE, FASTING 117 MG/DL (70-100); POTASSIUM SERUM 3.8 MEQ/L (3.5-5.1); SALICYLATE LEVEL < 1.7 MG/DL (5.0-30.0); SODIUM LEVEL 144 MEQ/L (136-145); THYROID STIMULATING HORMONE 0.305 uIU/ML (0.358-3.740); TOTAL PROTEIN 7.2 GM/DL (6.4-8.2)
[2018-04-29 12:55] LABS: ACETAMINOPHEN LEVEL < 2.0 UG/ML (10.0-30.0)
[2018-04-29 13:09] LABS: AMPHETAMINES LEVEL URINE NEGATIVE (NEGATIVE); BARBITURATES URINE NEGATIVE (NEGATIVE); BENZODIAZEPINES URINE NEGATIVE (NEGATIVE); CANNABINOIDS URINE POSITIVE (NEGATIVE); COCAINE METABOLITE URINE NEGATIVE (NEGATIVE); METHADONE URINE NEGATIVE (NEGATIVE); OPIATES URINE POSITIVE (NEGATIVE); PHENCYCLIDINE URINE NEGATIVE (NEGATIVE)
[2018-04-29] MEDS ORDERED: MAALOX 30 ML SUSP *UDC PO (14:45)
[2018-04-29] MEDS ORDERED: ACETAMINOPHEN TAB 650MG DOSE (2X325MG) PO (14:45)
[2018-04-29] MEDS ORDERED: MOM 30ML SUSPENSION UDC PO (14:45)
[2018-04-29] MEDS ORDERED: traZODone 50 MG TAB PO (16:30)
[2018-04-29] MEDS ORDERED: LISINOPRIL 20 MG TAB PO (17:00)
[2018-04-29] MEDS: LISINOPRIL 20 MG TAB PO (17:33)
[2018-04-29] MEDS: cloNIDine 0.1 MG TAB PO ×2 (17:33→23:46)
[2018-04-29] MEDS: LOTRISONE CREAM 15 GM (BETAMETH/CLOTRIMAZOLE) TOP (21:00)
[2018-04-29] MEDS: PREGABALIN 100 MG CAP (LYRICA) PO (21:56)
[2018-04-29] MEDS: DIVALPROEX 500 MG TAB PO (21:56)
[2018-04-29] MEDS: traZODone 50 MG TAB PO (21:56)
[2018-04-29] MEDS: amLODIPine 5 MG TAB PO (23:46)
[2018-04-30] MEDS: cloNIDine 0.1 MG TAB PO ×3 (06:46→18:00)
[2018-04-30] MEDS: amLODIPine 5 MG TAB PO (09:33)
[2018-04-30] MEDS: PREGABALIN 100 MG CAP (LYRICA) PO ×2 (09:33→22:09)
[2018-04-30] MEDS: CitaloPRAM (CeleXA) 20 MG TAB PO (09:33)
[2018-04-30] MEDS: DIVALPROEX 250 MG TAB PO (09:33)
[2018-04-30] MEDS: LOTRISONE CREAM 15 GM (BETAMETH/CLOTRIMAZOLE) TOP ×2 (09:34→22:08)
[2018-04-30] MEDS: LISINOPRIL 20 MG TAB PO (09:34)
[2018-04-30] MEDS: DIVALPROEX 500 MG TAB PO (22:09)
[2018-04-30] MEDS: traZODone 50 MG TAB PO (22:09)
[2018-05-01] MEDS: cloNIDine 0.1 MG TAB PO ×4 (00:05→17:20)
[2018-05-01] MEDS: amLODIPine 5 MG TAB PO (09:06)
[2018-05-01] MEDS: PREGABALIN 100 MG CAP (LYRICA) PO ×2 (09:06→21:08)
[2018-05-01] MEDS: LISINOPRIL 20 MG TAB PO (09:06)
[2018-05-01] MEDS: DIVALPROEX 250 MG TAB PO (09:06)
[2018-05-01] MEDS: NICOTINE 21MG/24HR 1 EA TRANSDERMAL TD (09:07)
[2018-05-01] MEDS: LOTRISONE CREAM 15 GM (BETAMETH/CLOTRIMAZOLE) TOP ×2 (09:07→21:00)
[2018-05-01] MEDS: CitaloPRAM (CeleXA) 20 MG TAB PO (09:07)
[2018-05-01] MEDS: METHADONE 5 MG TAB (S0109) PO (12:03)
[2018-05-01] MEDS: DIVALPROEX 500 MG TAB PO (21:07)
[2018-05-01] MEDS: traZODone 50 MG TAB PO (21:08)
[2018-05-02] MEDS: cloNIDine 0.1 MG TAB PO ×3 (06:20→11:51)
[2018-05-02 08:03] LABS: VALPROIC ACID (DEPAKOTE) 118.5 UG/ML (50.0-100.0)
[2018-05-02] MEDS: NICOTINE 21MG/24HR 1 EA TRANSDERMAL TD (08:24)
[2018-05-02] MEDS: LOTRISONE CREAM 15 GM (BETAMETH/CLOTRIMAZOLE) TOP ×2 (08:24→21:58)
[2018-05-02] MEDS: DIVALPROEX 250 MG TAB PO (08:25)
[2018-05-02] MEDS: CitaloPRAM (CeleXA) 20 MG TAB PO (08:25)
[2018-05-02] MEDS: PREGABALIN 100 MG CAP (LYRICA) PO ×2 (08:25→21:57)
[2018-05-02] MEDS: amLODIPine 5 MG TAB PO (08:26)
[2018-05-02] MEDS: LISINOPRIL 20 MG TAB PO (08:26)
[2018-05-02] MEDS: METHADONE 10 MG TAB (S0109) PO (10:31)
[2018-05-02] MEDS: DIVALPROEX 500 MG TAB PO (21:57)
[2018-05-02] MEDS: traZODone 50 MG TAB PO (21:57)
[2018-05-03] MEDS: amLODIPine 5 MG TAB PO (08:21)
[2018-05-03] MEDS: DIVALPROEX 250 MG TAB PO (08:21)
[2018-05-03] MEDS: LISINOPRIL 20 MG TAB PO (08:21)
[2018-05-03] MEDS: PREGABALIN 100 MG CAP (LYRICA) PO ×2 (08:22→21:51)
[2018-05-03] MEDS: CitaloPRAM (CeleXA) 20 MG TAB PO (08:22)
[2018-05-03] MEDS: LOTRISONE CREAM 15 GM (BETAMETH/CLOTRIMAZOLE) TOP ×2 (08:22→21:52)
[2018-05-03] MEDS: NICOTINE 21MG/24HR 1 EA TRANSDERMAL TD (08:22)
[2018-05-03] MEDS: METHADONE 10 MG TAB (S0109) PO (11:33)
[2018-05-03] MEDS: DIVALPROEX 500 MG TAB PO (21:50)
[2018-05-03] MEDS: traZODone 50 MG TAB PO (21:51)
[2018-05-04] MEDS: DIVALPROEX 500 MG TAB PO ×2 (08:27→20:26)
[2018-05-04] MEDS: LISINOPRIL 20 MG TAB PO (08:27)
[2018-05-04] MEDS: LOTRISONE CREAM 15 GM (BETAMETH/CLOTRIMAZOLE) TOP ×2 (08:28→20:28)
[2018-05-04] MEDS: amLODIPine 5 MG TAB PO (08:28)
[2018-05-04] MEDS: PREGABALIN 100 MG CAP (LYRICA) PO ×2 (08:28→20:26)
[2018-05-04] MEDS: CitaloPRAM (CeleXA) 20 MG TAB PO (08:28)
[2018-05-04] MEDS: NICOTINE 21MG/24HR 1 EA TRANSDERMAL TD (08:29)
[2018-05-04] MEDS: METHADONE 5 MG TAB (S0109) PO (09:20)
[2018-05-05 07:47] LABS: VALPROIC ACID (DEPAKOTE) 109.7 UG/ML (50.0-100.0)
[2018-05-05] MEDS: NICOTINE 21MG/24HR 1 EA TRANSDERMAL TD (08:23)
[2018-05-05] MEDS: LOTRISONE CREAM 15 GM (BETAMETH/CLOTRIMAZOLE) TOP ×2 (08:23→21:35)
[2018-05-05] MEDS: amLODIPine 5 MG TAB PO (08:25)
[2018-05-05] MEDS: PREGABALIN 100 MG CAP (LYRICA) PO ×2 (08:25→21:33)
[2018-05-05] MEDS: LISINOPRIL 20 MG TAB PO (08:26)
[2018-05-05] MEDS: CitaloPRAM (CeleXA) 20 MG TAB PO (08:26)
[2018-05-05] MEDS: DIVALPROEX 500 MG TAB PO ×2 (08:26→21:33)
[2018-05-05] MEDS: diphenhydrAMINE 50 MG CAP PO (21:33)
[2018-05-06] MEDS: LOTRISONE CREAM 15 GM (BETAMETH/CLOTRIMAZOLE) TOP (08:57)
[2018-05-06] MEDS: CitaloPRAM (CeleXA) 20 MG TAB PO (08:57)
[2018-05-06] MEDS: DIVALPROEX 500 MG TAB PO ×2 (08:57→21:36)
[2018-05-06] MEDS: amLODIPine 5 MG TAB PO (08:58)
[2018-05-06] MEDS: PREGABALIN 100 MG CAP (LYRICA) PO ×2 (08:58→21:36)
[2018-05-06] MEDS: LISINOPRIL 20 MG TAB PO (08:58)
[2018-05-06] MEDS: NICOTINE 21MG/24HR 1 EA TRANSDERMAL TD (08:59)
[2018-05-06] MEDS: diphenhydrAMINE 50 MG CAP PO (23:04)
[2018-05-06] MEDS: traZODone 50 MG TAB PO (23:04)
[2018-05-07] MEDS: amLODIPine 5 MG TAB PO (08:05)
[2018-05-07] MEDS: DIVALPROEX 500 MG TAB PO (08:05)
[2018-05-07] MEDS: CitaloPRAM (CeleXA) 20 MG TAB PO (08:05)
[2018-05-07] MEDS: LISINOPRIL 20 MG TAB PO (08:05)
[2018-05-07] MEDS: PREGABALIN 100 MG CAP (LYRICA) PO (08:05)
[2018-05-07] MEDS: NICOTINE 21MG/24HR 1 EA TRANSDERMAL TD (08:07)
== END 2018-05-07 08:40 | disposition home or self-care (01) | DRG 881 ==
LOC: M PSY 05-04 16:05 → M ED 10:57 → M ED INP 14:44 → M PSY 18:49
DX: F32.9 Major depressive disorder, single episode, unspecified (principal); F11.10 Opioid abuse, uncomplicated; F12.10 Cannabis abuse, uncomplicated; G89.4 Chronic pain syndrome; G40.409 Other generalized epilepsy and epileptic syndromes, not intractable, without status epilepticus; Z87.820 Personal history of traumatic brain injury; F17.210 Nicotine dependence, cigarettes, uncomplicated; M51.36 Other intervertebral disc degeneration, lumbar region; B35.3 Tinea pedis; Z88.6 Allergy status to analgesic agent; Z79.899 Other long term (current) drug therapy; Z59.0 Homelessness

== ENCOUNTER 2018-05-23 02:33 | Emergency (ER) | payer MEDICAID ==
[2018-05-23] MEDS: METOCLOPRAMIDE INJ 10MG/2ML VIAL (J2765) IV (04:53)
[2018-05-23] MEDS: MORPHINE 4 MG/ML 1ML VIAL/SYRINGE (J2270) IV (04:53)
[2018-05-23] MEDS: METHOCARBAMOL 1,000 MG/10 ML VIAL (J2800) IV (04:57)
== END 2018-05-23 06:36 | disposition home or self-care (01) ==
LOC: M ED 02:33
DX: M54.9 Dorsalgia, unspecified (principal); N28.1 Cyst of kidney, acquired; N20.0 Calculus of kidney; Z79.899 Other long term (current) drug therapy; Z88.6 Allergy status to analgesic agent
CPT/HCPCS: J2270

== ENCOUNTER 2018-05-28 13:32 | Emergency (ER) | payer OTHER, MEDICAID ==
[2018-05-28] MEDS: PERCOCET 5MG/325MG TAB PO (18:10)
== END 2018-05-28 18:15 | disposition home or self-care (01) ==
LOC: M ED 13:32
DX: G89.29 Other chronic pain (principal); M54.9 Dorsalgia, unspecified; I10 Essential (primary) hypertension; F41.9 Anxiety disorder, unspecified; Z79.899 Other long term (current) drug therapy; Z88.8 Allergy status to other drugs, medicaments and biological substances; F17.210 Nicotine dependence, cigarettes, uncomplicated
CPT/HCPCS: 99283

== ENCOUNTER 2018-06-01 14:06 | Emergency (ER) | payer OTHER ==
[2018-06-01] MEDS: ACETAMINOPHEN 325 MG TAB PO (16:40)
== END 2018-06-01 17:26 | disposition home or self-care (01) ==
LOC: M ED 14:06
DX: S46.811A Strain of other muscles, fascia and tendons at shoulder and upper arm level, right arm, initial encounter (principal); S66.50 Unspecified injury of intrinsic muscle, fascia and tendon of other and unspecified finger at wrist and hand level; M25.711 Osteophyte, right shoulder; X58.XXXA Exposure to other specified factors, initial encounter; Y92.9 Unspecified place or not applicable; Y93.9 Activity, unspecified; Y99.9 Unspecified external cause status; R51 Headache; G89.29 Other chronic pain; M54.2 Cervicalgia; Z72.0 Tobacco use; Z79.899 Other long term (current) drug therapy; Z88.6 Allergy status to analgesic agent
CPT/HCPCS: 73000

== ENCOUNTER 2018-06-11 20:17 | Emergency (ER) | payer OTHER ==
[2018-06-11 20:55] LABS: BASO # 0.1 10^3/uL (0.0-0.2); BASO % 0.8 % (0.0-1.0); EOS # 0.2 10^3/uL (0.0-0.50); EOS % 2.3 % (0.0-3.0); HEMATOCRIT 38.6 % (42.0-52.0); HEMOGLOBIN 12.5 g/dl (13.5-17.5); IMMATURE GRANULOCYTE % 0.3 % (0-3.0); LYMPH # 2.5 10^3/uL (1.5-4.5); LYMPH % 25.4 % (24.0-44.0); MEAN CORPUSCULAR HEMOGLOBIN 26.5 pg (27.0-33.0); MEAN CORPUSCULAR HGB CONC 32.4 g/dl (32.0-36.5); MEAN CORPUSCULAR VOLUME 81.8 fl (80.0-96.0); MONO # 0.5 10^3/uL (0.0-0.8); MONO % 5.1 % (0.0-5.0); NEUTROPHILS # 6.4 10^3/uL (1.8-7.7); NEUTROPHILS % 66.1 % (36.0-66.0); PLATELET COUNT, AUTOMATED 288 10^3/uL (150-450); RED BLOOD COUNT 4.72 10^6/uL (4.30-6.10); WHITE BLOOD COUNT 9.8 10^3/uL (4.0-10.0)
[2018-06-11] MEDS: NS 1,000 ML IV (21:08)
[2018-06-11 21:15] LABS: OSMOLALITY SERUM 293 MOSM/KG (275-295)
[2018-06-11 21:30] LABS: ACETAMINOPHEN LEVEL < 2.0 UG/ML (10.0-30.0); ALBUMIN 3.4 GM/DL (3.2-5.2); ALBUMIN/GLOBULIN RATIO 0.92 (1.00-1.93); ALKALINE PHOSPHATASE 78 U/L (45-117); ALT/SGPT 23 U/L (12-78); ANION GAP 8 MEQ/L (8-16); AST/SGOT 28 U/L (7-37); BILIRUBIN,DIRECT 0.1 MG/DL (0.0-0.2); BILIRUBIN,TOTAL 0.5 MG/DL (0.2-1.0); BLOOD UREA NITROGEN 10 MG/DL (7-18); CALCIUM LEVEL 8.3 MG/DL (8.5-10.1); CARBON DIOXIDE LEVEL 26 MEQ/L (21-32); CHLORIDE LEVEL 107 MEQ/L (98-107); CPK CREATINE PHOSPHOKINASE 208 U/L (39-308); CREATININE FOR GFR 0.84 MG/DL (0.70-1.30); ETHYL ALCOHOL (ETHANOL) < 0.003 % (0.000-0.010); GLOMERULAR FILTRATION RATE > 60.0 (>56); GLUCOSE, FASTING 103 MG/DL (70-100); POTASSIUM SERUM 4.3 MEQ/L (3.5-5.1); SALICYLATE LEVEL < 1.7 MG/DL (5.0-30.0); SODIUM LEVEL 141 MEQ/L (136-145); THYROID STIMULATING HORMONE 0.527 uIU/ML (0.358-3.740); TOTAL PROTEIN 7.1 GM/DL (6.4-8.2)
[2018-06-12] MEDS ORDERED: NALOXONE INJ 2 MG/2 ML SYRINGE (J2310) As Ordered (00:39)
[2018-06-12] MEDS: NALOXONE INJ 2 MG/2 ML SYRINGE (J2310) IV (00:42)
[2018-06-12] MEDS ORDERED: METAL LOCK LOOP XX (02:29)
[2018-06-12 02:52] LABS: AMPHETAMINES LEVEL URINE NEGATIVE (NEGATIVE); BARBITURATES URINE NEGATIVE (NEGATIVE); BENZODIAZEPINES URINE NEGATIVE (NEGATIVE); CANNABINOIDS URINE POSITIVE (NEGATIVE); COCAINE METABOLITE URINE NEGATIVE (NEGATIVE); METHADONE URINE NEGATIVE (NEGATIVE); OPIATES URINE POSITIVE (NEGATIVE); PHENCYCLIDINE URINE NEGATIVE (NEGATIVE)
== END 2018-06-12 06:09 | disposition home or self-care (01) ==
LOC: M ED 06-12 06:09
DX: G89.29 Other chronic pain (principal); M54.2 Cervicalgia; F19.10 Other psychoactive substance abuse, uncomplicated; I45.19 Other right bundle-branch block; F12.10 Cannabis abuse, uncomplicated; Z79.899 Other long term (current) drug therapy; Z88.6 Allergy status to analgesic agent
CPT/HCPCS: J2310

== ENCOUNTER 2018-06-19 03:54 | Emergency (ER) | payer OTHER ==
[2018-06-19] MEDS: AUGMENTIN 875 MG TAB PO (05:00)
[2018-06-19] MEDS: ACETAMINOPHEN 325 MG TAB PO (05:00)
== END 2018-06-19 05:12 | disposition home or self-care (01) ==
LOC: M ED 03:54
DX: L02.02 Furuncle of face (principal); I10 Essential (primary) hypertension; G89.29 Other chronic pain; F19.10 Other psychoactive substance abuse, uncomplicated; Z72.0 Tobacco use; Z88.6 Allergy status to analgesic agent
CPT/HCPCS: 99282

== ENCOUNTER → 2018-07-17 | Outpatient (REF) | LOC: M SMT 10:23 | DX: M50.33 Other cervical disc degeneration, cervicothoracic region (principal); M46.02 Spinal enthesopathy, cervical region; M89.38 Hypertrophy of bone, other site; Z98.1 Arthrodesis status; M51.36 Other intervertebral disc degeneration, lumbar region ==

== ENCOUNTER 2018-07-29 08:23 | Emergency (ER) | payer OTHER | END 2018-07-29 09:48 | disposition home or self-care (01) | LOC: M ED 08:23 | DX: G89.29 Other chronic pain (principal); M54.9 Dorsalgia, unspecified; I10 Essential (primary) hypertension; Z79.899 Other long term (current) drug therapy; Z88.8 Allergy status to other drugs, medicaments and biological substances; F11.20 Opioid dependence, uncomplicated; F17.210 Nicotine dependence, cigarettes, uncomplicated | CPT/HCPCS: 99283 ==

== ENCOUNTER 2018-08-23 14:36 | Emergency (ER) | payer OTHER | END 2018-08-23 15:54 | disposition home or self-care (01) | LOC: M ED 14:36 | DX: L02.414 Cutaneous abscess of left upper limb (principal); I10 Essential (primary) hypertension; Z79.899 Other long term (current) drug therapy; Z88.6 Allergy status to analgesic agent | CPT/HCPCS: 99283 ==

== ENCOUNTER → 2018-10-31 | Outpatient (REF) | payer OTHER ==
[~2018-10-31] MED LIST changes: +ACET30TAB PO; +AUGM500T34 PO; +BACT800T5 PO; +BUPR1SUB4 SL; +CELE20TA PO; +CYCL10TA PO; +DEPA250T32 PO; -DIVA500T3 PO; +DIVA500T94; +DIVA500T94 PO; +FIRS50SO PO; +LIDO5DIS41 TOP; +METH1TAB40; +NORCOTAB PO; +NYST1POW9 TOP; +PRED20TA PO; +ROBA500T PO; +SUBO8MIS SL; +TRAM50TA2 PO; +TRAZ-160 PO; +TRAZ-186 PO; +TRAZ10TA PO; -TRAZ50TA11 PO; +TRAZO50TA PO
== END ==
LOC: M LAB REF 12:35
PROVIDERS: ATTEND Surgery
DX: Z51.81 Encounter for therapeutic drug level monitoring (principal)

== ENCOUNTER 2018-12-11 10:00 | Emergency (ER) | payer OTHER ==
[~2018-12-11] VITALS: Ht 175.3 cm; Wt 83.2 kg
[~2018-12-11 10:00] MED LIST changes: +ACET-716 PO; -ACET30TAB PO; +HYDR-3715 PO; +NICO21DI3 TD; -NORC1TAB4 PO; +NORC1TAB7 PO; -NORCOTAB PO; +SERT-141 PO; -SERT50TA PO
[2018-12-11 10:01] VITALS: BP 171/97
[2018-12-11] MEDS ORDERED: LISI20TA3 (10:07)
[2018-12-11] MEDS ORDERED: DIVA500T94 (10:07)
[2018-12-11] MEDS ORDERED: AMLO10TA5 (10:07)
[2018-12-11] MEDS ORDERED: LIDOCAINE 2% MDV 20 ML VIAL As Ordered ONE (10:24)
[2018-12-11] MEDS ORDERED: AUGM875T28 PO (10:41)
[2018-12-11] MEDS ORDERED: LIDOCAINE 2% MDV 20 ML VIAL SC ONE (10:45)
== END 2018-12-11 10:50 | disposition home or self-care (01) ==
LOC: M ED 10:00
DX: L02.215 Cutaneous abscess of perineum (principal); I10 Essential (primary) hypertension; M54.2 Cervicalgia; F19.90 Other psychoactive substance use, unspecified, uncomplicated; Z79.899 Other long term (current) drug therapy; Z88.8 Allergy status to other drugs, medicaments and biological substances

== ENCOUNTER 2019-02-12 00:12 | Observation (INO) | payer MEDICAID, OTHER ==
[~2019-02-12] VITALS: Ht 175.3 cm; Wt 93.5 kg
[~2019-02-12 00:12] MED LIST changes: +AMLO10TA5; +AUGM875T28 PO; +LISI20TA3; -TRAZ-160 PO; +TRAZ-252 PO; +TRAZ1TAB10 PO; -TRAZO50TA PO
[2019-02-12 01:09] LABS: BASO # 0.1 10^3/uL (0.0-0.2); BASO % 0.7 % (0.0-1.0); EOS # 0.2 10^3/uL (0.0-0.50); EOS % 1.7 % (0.0-3.0); HEMATOCRIT 41.5 % (42.0-52.0); HEMOGLOBIN 13.7 g/dl (13.5-17.5); LYMPH # 2.8 10^3/uL (1.5-4.5); LYMPH % 29.7 % (24.0-44.0); MEAN CORPUSCULAR HEMOGLOBIN 29.1 pg (27.0-33.0); MEAN CORPUSCULAR VOLUME 88.3 fl (80.0-96.0); MONO # 1.2 10^3/uL (0.0-0.8); MONO % 12.6 % (0.0-5.0); NEUTROPHILS # 5.1 10^3/uL (1.8-7.7); NEUTROPHILS % 55.1 % (36.0-66.0); PLATELET COUNT, AUTOMATED 201 10^3/uL (150-450); WHITE BLOOD COUNT 9.3 10^3/uL (4.0-10.0)
[2019-02-12 01:37] LABS: ALBUMIN 3.7 GM/DL (3.2-5.2); ALT/SGPT 134 U/L (12-78); BILIRUBIN,DIRECT 0.3 MG/DL (0.0-0.2); BILIRUBIN,TOTAL 0.9 MG/DL (0.2-1.0); BLOOD UREA NITROGEN 22 MG/DL (7-18); CALCIUM LEVEL 8.3 MG/DL (8.5-10.1); CARBON DIOXIDE LEVEL 25 MEQ/L (21-32); CHLORIDE LEVEL 107 MEQ/L (98-107); CPK CREATINE PHOSPHOKINASE 2218 U/L (39-308); ETHYL ALCOHOL (ETHANOL) < 0.003 % (0.000-0.010); GLOMERULAR FILTRATION RATE > 60.0 (>56); GLUCOSE, FASTING 100 MG/DL (70-100); MB/CK RELATIVE INDEX 0.73 (< OR =4); POTASSIUM SERUM 3.8 MEQ/L (3.5-5.1); SODIUM LEVEL 141 MEQ/L (136-145); TOTAL PROTEIN 7.8 GM/DL (6.4-8.2); TROPONIN I < 0.02 NG/ML (< 0.10)
[2019-02-12] MEDS ORDERED: NS 3,440 ML in APPROPRIATE DILUENT 1 EA IV ONE (02:15)
[2019-02-12] MEDS ORDERED: VITA100018 PO (02:40)
[2019-02-12] MEDS ORDERED: HYDR-3363 PO (02:40)
[2019-02-12] MEDS ORDERED: LYRI150C PO (02:40)
[2019-02-12] MEDS ORDERED: TRAZ150T90 PO (02:40)
[2019-02-12] MEDS ORDERED: PROAAER10 INH (02:40)
[2019-02-12] MEDS ORDERED: DIVA500T94 PO (02:40)
[2019-02-12] MEDS ORDERED: PROT1TAB2 PO (02:40)
[2019-02-12] MEDS ORDERED: FOLI1TAB11 PO (02:40)
[2019-02-12] MEDS ORDERED: methylPREDNISolone INJ 125 MG/2 ML VIAL (J2930) IV ONE (02:45)
[2019-02-12 02:53] LABS: MYOGLOBIN SCREEN, URINE POSITIVE (NEGATIVE)
[2019-02-12 03:16] LABS: AMPHETAMINES LEVEL URINE POSITIVE (NEGATIVE); BARBITURATES URINE NEGATIVE (NEGATIVE); BENZODIAZEPINES URINE NEGATIVE (NEGATIVE); CANNABINOIDS URINE POSITIVE (NEGATIVE); COCAINE METABOLITE URINE NEGATIVE (NEGATIVE); METHADONE URINE NEGATIVE (NEGATIVE); OPIATES URINE NEGATIVE (NEGATIVE); PHENCYCLIDINE URINE NEGATIVE (NEGATIVE)
[2019-02-12] MEDS ORDERED: ACETAMINOPHEN TAB 650MG DOSE (2X325MG) PO PRN (04:45)
[2019-02-12] MEDS ORDERED: ALBUTEROL 90 MCG/ACT 8GM HFA INHALER INH PRN (04:45)
[2019-02-12] MEDS ORDERED: hydrOXYzine 25 MG TAB PO PRN (04:45)
[2019-02-12] MEDS: NS 1,000 ML IV SCH ×3 (05:00→15:30)
--- NOTE | 2019-02-12 05:20 | HPEPDOC ---
General Date of Admission 02/12/2019 Date of Service: Feb 12, 2019 Attending Physician: OTTO FOX MD Chief Complaint The patient is a 53-year-old male admitted with a reason for visit of Back Pain. Source: Patient, Old records Exam Limitations: Intoxication History of Present Illness Mr. Harris is a 53-year-old male who presents to [facility]'s Emergency Department with back pain. 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 He states that the incident was witnessed on the camera and a border police came over to assist him. He was transported to the ED via EMS. The patient denies loss of consciousness, hitting his head, or urinating or defecating on himself. He states that the pain is in his lower back without radiation to his groin. He denies urinary symptoms, including dysuria or hematuria. He reports chronic numbness and tingling due to a sustained neck fracture. He also reports chronic bilateral foot pain. These symptoms are no different from his normal baseline. He states he has a headache and he feels itchy all over, but denies skin rashes or lesions. He has a history of IVDU, but states that he last used months ago. Emergency Department evaluation reveals stable vital signs. BUN is elevated at 22. AST/ALT are elevated at 144/134. Total CK is 2218. Urinalysis is positive for myoglobin. Toxicology screen is positive for amphetamines and cannabinoids. Imaging onf his head, C-spine, and T-spine were obtained. Images are available, but reports are pending. Hospitalist was consulted and patient was admitted for further medical management. Home Medications Scheduled Cyanocobalamin (Vitamin B-12) (Vitamin B-12) 1,000 Mcg Tablet, 1,000 MCG PO DAILY, (Reported) Divalproex Sodium (Divalproex Sodium) 500 Mg Tablet.dr, 500 MG PO BID, (Reported) Folic Acid (Folic Acid) 1 Mg Tablet, 1 MG PO DAILY, (Reported) Pantoprazole Sodium (Protonix) 40 Mg Tablet.dr, 40 MG PO DAILY, (Reported) Pregabalin (Lyrica) 150 Mg Capsule, 150 MG PO TID, (Reported) Trazodone HCl (Trazodone HCl) 150 Mg Tablet, 150 MG PO QHS, (Reported) Scheduled PRN Albuterol Sulfate (Proair Hfa) 8.5 Gm Hfa.aer.ad, 2 PUFF INH Q4H PRN for SHORTNESS OF BREATH, (Reported) Hydroxyzine HCl (Hydroxyzine HCl) 25 Mg Tablet, 25 MG PO QID PRN for ANXIETY OR ITCHING, (Reported) Allergies Coded Allergies: NSAIDS (Non-Steroidal Anti-Inflamma (Verified Adverse Reaction, Intermediate, intestinal bleeding, 12/11/18) Past Medical History Medical History 1. HTN 2. Epilepsy 3. Chronic pain 4. Depression / anxiety 5. Mood disorder 6. Polysubstance abuse (IVDU) 7. Clostridium difficile 8. Priapism 9. GERD 10. Insomnia 11. Perineal abscess 12. History of pneumonia 13. History of sepsis 14. History of rhabdomyolysis 15. History of acute renal failure 16. History of metabolic encephalopathy 17. C7 fracture Surgical History 1. Aspiration and irrigation of corpus cavernosum 2. Laser ablation of perineal condyloma 3. Modified Winter shunt 4. B/L inguinal hernia repair 5. Carotid surgery 6. Right foot fracture s/p repair 7. Priapsim s/p penile stenting 8. Cervical spine fusion 9. B/L eye surgery during childhood Family History Father: , unknown age, myocardial infarction Mother: Alive, 73, unknown health history Siblings - Half-brothers: x2, unknown ages, alive and healthy Social History * Smoker: current smoker (1 PPD, started at age 14, current smoker) Alcohol: Denies Drugs: marijuana, IV drug use Lives with his mother. . Previously for 35 years. Has two adult children - 2 sons, aged 35 and 23, who are both alive and healthy. There are no pets in the home. He smokes 1 PPD and started at the age of 14. He does not drink EtOH. He admits to using IVD and smoking marijuana. 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 A-FIB/CHADSVASC A-FIB History Current/History of A-Fib/PAF?: No Review of Systems Constitutional: Denies: Chills, Fever, Night Sweats, Weakness Eyes: Denies: Vision change, Conjunctivae inflammation, Eyelid inflammation ENT: Reports: Head Aches, Sore Throat; Denies: Dysphagia, Sinus Congestion, Post Nasal Drip, Epistaxis Skin: Reports: Itching; Denies: Rash, Lesions Pulmonary: Denies: Dyspnea, Cough, Pleuritic Chest Pain Cardiovascular: Denies: Chest Pain, Palpitations, Orthopnea, Paroxysmal Noc. Dyspnea, Edema, Lt Headedness Gastrointestinal: Denies: Nausea, Vomiting, Abdominal Pain, Diarrhea, Constipation, Melena, Hematochezia Genitourinary: Denies: Dysuria, Frequency, Incontinence, Hematuria, Retention Hematologic: Denies: Bruising Musculoskeletal: Reports: Neck Pain, Back Pain, Joint Pain (hip) Neurological: Reports: Numbness (chronic, hands and feet); Denies: Weakness Physical Examination General Exam: Positive: Alert, Cooperative, Mild Distress Eye Exam: Positive: PERRLA, Conjunctiva & lids normal, EOMI; Negative: Sclera icteric, Ptosis ENT Exam: Positive: Atraumatic, Pharynx Normal, Tongue Midline, Nares Patent; Negative: Mucous membr. moist/pink (mouth appears dry), Pharyngeal Edema Neck Exam: Positive: Supple, +2 carotid pulse wo bruit; Negative: JVD, thyromegaly, Lymphadenopathy Chest Exam: Positive: Clear to auscultation, Normal air movement; Negative: Rales, Rhonchi, Wheezing, Diminished Heart Exam: Positive: Rate Normal, Regular Rhythm, Normal S1, Normal S2; Negative: Gallops, Murmurs, Rubs Telemetry: Positive: Sinus Abdomen Exam: Positive: BS Hypoactive, Soft; Negative: Tenderness, Hepatospenomegaly, Mass, Hernia Extremity Exam: Positive: Normal pulses; Negative: Clubbing, Cyanosis, Edema, Tenderness, Swelling Skin Exam: Negative: Rash, Lesion Neuro Exam: Positive: Cranial Nerves 3-12 NL Psych Exam: Positive: Oriented x 3, Other (appears to roll his tongue) Other physical findings 1. CT head without contrast - Report pending. 2. CT C-spine without contrast - Report pending. 3. CT L-spine without contrast - Report pending. Vital Signs Vital Signs Date Time Temp Pulse Resp B/P (MAP) Pulse Ox O2 Delivery O2 Flow Rate FiO2 02/12/19 04:15 79 140/70 (93) 94 Room Air 02/12/19 00:29 98.2 18 Height (in): 69 Weight (kg): 114.55 BMI (kg): 37.3 Laboratory Data Labs 24H Laboratory Tests 2 02/12/19 00:33: Immature Granulocyte % (Auto) 0.2, White Blood Count 9.3, Red Blood Count 4.70, Hemoglobin 13.7, Hematocrit 41.5L, Mean Corpuscular Volume 88.3, Mean Corpuscular Hemoglobin 29.1, Mean Corpuscular Hemoglobin Concent 33.0, Red Cell Distribution Width 13.1, Platelet Count 201, Neutrophils (%) (Auto) 55.1, Lymphocytes (%) (Auto) 29.7, Monocytes (%) (Auto) 12.6H, Eosinophils (%) (Auto) 1.7, Basophils (%) (Auto) 0.7, Neutrophils # (Auto) 5.1, Lymphocytes # (Auto) 2.8, Monocytes # (Auto) 1.2H, Eosinophils # (Auto) 0.2, Basophils # (Auto) 0.1, Nucleated Red Blood Cells % (auto) 0.0, Anion Gap 9, Glomerular Filtration Rate > 60.0, Calcium Level 8.3L, Aspartate Amino Transf (AST/SGOT) 144H, Alanine Aminotransferase (ALT/SGPT) 134H, Alkaline Phosphatase 71, Total Bilirubin 0.9, Direct Bilirubin 0.3H, Total Creatine Kinase 2218H, Creatine Kinase MB 16.0H, Creatine Kinase MB Relative Index 0.73, Troponin I < 0.02, Total Protein 7.8, Albumin 3.7, Albumin/Globulin Ratio 0.90L, Thyroid Stimulating Hormone (TSH) 1.470, Ethyl Alcohol Level < 0.003 02/12/19 01:35: Bedside Glucose (Misc Panel) 97 02/12/19 02:33: Urine Myoglobin POSITIVE, Urine Amphetamines Screen POSITIVEH, Urine Benzodiazepines Screen NEGATIVE, Urine Opiates Screen NEGATIVE, Urine Methadone Screen NEGATIVE, Urine Barbiturates Screen NEGATIVE, Urine Phencyclidine Screen NEGATIVE, Urine Cocaine Metabolite Screen NEGATIVE, Urine Cannabinoids Screen POSITIVEH CBC/BMP Laboratory Tests 02/12/19 00:33 Red Blood Count 4.70, Mean Corpuscular Volume 88.3, Mean Corpuscular Hemoglobin 29.1, Mean Corpuscular Hemoglobin Concent 33.0, Red Cell Distribution Width 13.1, Neutrophils (%) (Auto) 55.1, Lymphocytes (%) (Auto) 29.7, Monocytes (%) (Auto) 12.6 H, Eosinophils (%) (Auto) 1.7, Basophils (%) (Auto) 0.7, Neutrophils # (Auto) 5.1, Lymphocytes # (Auto) 2.8, Monocytes # (Auto) 1.2 H, Eosinophils # (Auto) 0.2, Basophils # (Auto) 0.1 Plan / VTE VTE Prophylaxis Ordered?: Yes Plan Plan 1. Rhabdomyolysis - Noted on laboratory evaluation with elevated CK, myoglobin in urine, elevated BUN, and elevated transaminases. Urine toxicology positive for cannabinoids and amphetamines. Will obtain coagulation studies and lactic acid. Complete bolus IVF. Continue with NS @ 200 mLs/hr. Monitor labs. Vital signs are stable. 2. Chronic back pain - Consider pain management consult. Continue with Tylenol as needed. 3. Mood disorder - Continue with Depakote. Disposition Admit: Med/Surg Anticipated hospitalization: Observation IVF: Continue (NS @ 200 mLs/hr) Diet: Continue Current (2g sodium) Activity: Continue Current (activity as tolerated) Therapy: PT Diagnostics: Check Labs, Repeat Labs in AM Anticipated Discharge: Home GME ATTESTATION GME ATTESTATION My faculty preceptor for this patient encounter was physically present during the encounter and was fully available. All aspects of the patient interview, examination, medical decision making process, and medical care plan development were reviewed and approved by the faculty preceptor. The faculty preceptor is aware and concurs with the plan as stated in the body of this note and will attest to such by his/her cosignature. ATTENDING NOTE I performed a history and physical examination of the patient and discussed m anagement with the resident. I reviewed the residents note and agree with the documented findings and plan of care. LATISHA GOFF DO Feb 12, 2019 05:20 OTTO FOX MD Feb 12, 2019 07:32
[2019-02-12 05:42] LABS: HEMATOCRIT 38.7 % (42.0-52.0); HEMOGLOBIN 12.4 g/dl (13.5-17.5); MEAN CORPUSCULAR HEMOGLOBIN 28.3 pg (27.0-33.0); MEAN CORPUSCULAR VOLUME 88.4 fl (80.0-96.0); PLATELET COUNT, AUTOMATED 156 10^3/uL (150-450); RED BLOOD COUNT 4.38 10^6/uL (4.30-6.10); WHITE BLOOD COUNT 5.5 10^3/uL (4.0-10.0)
[2019-02-12 06:00] VITALS: BP 149/72
[2019-02-12 06:02] LABS: INR 1.22; PROTHROMBIN TIME 15.6 SECONDS (12.1-14.4)
[2019-02-12 06:03] LABS: PARTIAL THROMBOPLASTIN TIME 33.7 SECONDS (25.4-37.6)
[2019-02-12 06:10] LABS: ALBUMIN 3.1 GM/DL (3.2-5.2); ALT/SGPT 114 U/L (12-78); BILIRUBIN,TOTAL 0.9 MG/DL (0.2-1.0); BLOOD UREA NITROGEN 17 MG/DL (7-18); CALCIUM LEVEL 7.3 MG/DL (8.5-10.1); CARBON DIOXIDE LEVEL 23 MEQ/L (21-32); CHLORIDE LEVEL 112 MEQ/L (98-107); CREATININE FOR GFR 0.85 MG/DL (0.70-1.30); GLOMERULAR FILTRATION RATE > 60.0 (>56); GLUCOSE, FASTING 141 MG/DL (70-100); POTASSIUM SERUM 3.8 MEQ/L (3.5-5.1); SODIUM LEVEL 141 MEQ/L (136-145)
--- NOTE | 2019-02-12 08:14 | REP ---
CT Head without contrast HISTORY: Altered mental status COMPARISON: 06/11/2018 There is no intraparenchymal hemorrhage, acute infarct, mass or midline shift. The ventricular system is normal in appearance. There is no extra cerebral collection. There is no fracture. The visualized sinuses are clear. IMPRESSION: There is no intracranial lesion. Electronically Signed by Shree Devries MD 02/12/2019 08:05 A
--- NOTE | 2019-02-12 08:21 | REP ---
CT cervical spine without contrast HISTORY: Altered mental status COMPARISON: 06/11/2018 The patient is status post C5-T1 anterior spinal fusion. Metal hardware and bone graft material are present. There is no acute fracture or subluxation. Disc bulges are present at the C3-4 and C4-5 levels. Posterior osteophytes are present at the C5-6 level. There is minimal narrowing of the spinal canal. Uncinate process and/or facet hypertrophy are present at the C3-4 and C5-6 levels. These findings produce minimal to moderate narrowing of the neural foramina. IMPRESSION: 1. The patient is status post C5-T1 anterior spinal fusion. 2. There is cervical spondylosis at the C3-4 through C5-6 levels. Electronically Signed by Shree Devries MD 02/12/2019 08:13 A
--- NOTE | 2019-02-12 08:27 | REP ---
CT Lumbar Spine without contrast HISTORY: Back pain COMPARISON: 05/23/2018 There is no disc bulge or herniation at the L1-2 and L5-L1 levels. The nerves exit the neural foramina without compression. A diffuse disc bulge is present at the L2-3 level. There is minimal compression of the thecal sac. The L2 nerves exit the neural foramina without compression. A diffuse disc bulge is present at the L3-4 level. There is minimal compression of the thecal sac. The L3 nerves exit the neural foramina without compression. A diffuse disc bulge is present at the L4-5 level. There is minimal compression of the thecal sac. The L4 nerves exit the neural foramina without compression. The intervertebral discs and vertebral bodies are normal in height. There is no fracture or subluxation. IMPRESSION: Diffuse disc bulges at the L2-3 through L4-5 levels with minimal thecal sac compression. There is no significant change compared to the previous study. Electronically Signed by Shree Devries MD 02/12/2019 08:18 A
[2019-02-12] MEDS: FOLIC ACID 1 MG TAB PO SCH (09:21)
[2019-02-12] MEDS: CYANOCOBALAMIN 500 MCG TAB PO SCH (09:22)
[2019-02-12] MEDS: PREGABALIN 75 MG CAP(LYRICA) PO SCH ×3 (09:22→20:13)
[2019-02-12] MEDS: ENOXAPARIN 40 MG/0.4 ML SYRINGE (J1650) SC SCH (09:22)
[2019-02-12] MEDS: DIVALPROEX 500 MG TAB PO SCH ×2 (09:22→20:14)
[2019-02-12] MEDS: PANTOPRAZOLE 40MG TAB (PROTONIX) PO SCH (09:22)
[2019-02-12] MEDS: LIDOCAINE 5% (LIDODERM) PATCH TD SCH (12:50)
[2019-02-12] MEDS: NICOTINE 21MG/24HR 1 EA TRANSDERMAL TD SCH (12:50)
[2019-02-12 14:09] VITALS: BP 121/70
[2019-02-12] MEDS ORDERED: **NOTE PATIENT COMMENT** MISC XX SCH (21:00)
[2019-02-12] MEDS ORDERED: traZODone 50 MG TAB PO SCH (21:00)
[2019-02-12 22:00] VITALS: BP 128/67
[2019-02-13] MEDS: NS 1,000 ML IV SCH (01:03)
[2019-02-13 06:00] VITALS: BP 134/70
[2019-02-13 06:01] LABS: HEMATOCRIT 33.7 % (42.0-52.0); HEMOGLOBIN 10.7 g/dl (13.5-17.5); MEAN CORPUSCULAR HEMOGLOBIN 29.2 pg (27.0-33.0); MEAN CORPUSCULAR HGB CONC 31.8 g/dl (32.0-36.5); MEAN CORPUSCULAR VOLUME 91.8 fl (80.0-96.0); PLATELET COUNT, AUTOMATED 130 10^3/uL (150-450); RED BLOOD COUNT 3.67 10^6/uL (4.30-6.10); WHITE BLOOD COUNT 7.1 10^3/uL (4.0-10.0)
[2019-02-13 06:36] LABS: ALBUMIN 2.5 GM/DL (3.2-5.2); ALT/SGPT 79 U/L (12-78); BILIRUBIN,TOTAL 0.2 MG/DL (0.2-1.0); BLOOD UREA NITROGEN 17 MG/DL (7-18); CALCIUM LEVEL 7.1 MG/DL (8.5-10.1); CARBON DIOXIDE LEVEL 22 MEQ/L (21-32); CHLORIDE LEVEL 116 MEQ/L (98-107); CPK CREATINE PHOSPHOKINASE 484 U/L (39-308); GLOMERULAR FILTRATION RATE > 60.0 (>56); GLUCOSE, FASTING 138 MG/DL (70-100); POTASSIUM SERUM 3.6 MEQ/L (3.5-5.1); SODIUM LEVEL 147 MEQ/L (136-145); TOTAL PROTEIN 5.9 GM/DL (6.4-8.2)
--- NOTE | 2019-02-13 07:41 | ECGEPIP ---
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
[2019-02-13] MEDS: NICOTINE 21MG/24HR 1 EA TRANSDERMAL TD SCH (09:00)
[2019-02-13] MEDS: LIDOCAINE 5% (LIDODERM) PATCH TD SCH (09:12)
[2019-02-13] MEDS: PANTOPRAZOLE 40MG TAB (PROTONIX) PO SCH (09:12)
[2019-02-13] MEDS: ENOXAPARIN 40 MG/0.4 ML SYRINGE (J1650) SC SCH (09:12)
[2019-02-13] MEDS: CYANOCOBALAMIN 500 MCG TAB PO SCH (09:12)
[2019-02-13] MEDS: DIVALPROEX 500 MG TAB PO SCH (09:13)
[2019-02-13] MEDS: FOLIC ACID 1 MG TAB PO SCH (09:13)
[2019-02-13] MEDS: PREGABALIN 75 MG CAP(LYRICA) PO SCH (09:13)
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
== END 2019-02-13 10:05 | disposition home or self-care (01) ==
LOC: M ED 00:12 → M ED INP 00:13 → M MS5PR 05:57
PROVIDERS: ADMIT Internal Medicine; ATTEND Internal Medicine
DX: M62.82 Rhabdomyolysis (principal); M43.22 Fusion of spine, cervical region; M47.812 Spondylosis without myelopathy or radiculopathy, cervical region; M51.36 Other intervertebral disc degeneration, lumbar region; I10 Essential (primary) hypertension; G40.909 Epilepsy, unspecified, not intractable, without status epilepticus; G89.4 Chronic pain syndrome; F19.20 Other psychoactive substance dependence, uncomplicated; N48.30 Priapism, unspecified; K21.9 Gastro-esophageal reflux disease without esophagitis; G47.00 Insomnia, unspecified; Z79.899 Other long term (current) drug therapy; Z88.8 Allergy status to other drugs, medicaments and biological substances; F41.9 Anxiety disorder, unspecified; F32.9 Major depressive disorder, single episode, unspecified; F17.210 Nicotine dependence, cigarettes, uncomplicated
CPT/HCPCS: 36415; 70450; 72125; 72131; 80053; 80307; 81002; 82550; 82553; 83605; 84443; 85025; 85027; 85610; 85730; 93005; 93041; 94760; 96361; 96372; 96374; 97116; 97161; 97530; 99285; G0480; J1650; J2930

== ENCOUNTER → 2019-03-22 | Outpatient (CLI) | payer MEDICAID ==
[~2019-03-22] MED LIST changes: +FOLI1TAB11 PO; +HYDR-3363 PO; -LISI20TA PO; +LISI20TA19 PO; +LISI20TA20; +LISI20TA20 PO; -LISI20TA3; -LISI20TA3 PO; +LYRI150C PO; +PROAAER10 INH; +PROT1TAB2 PO; -TRAZ10TA PO; +TRAZ150T90 PO; +TRAZ1TAB12 PO; +VITA100018 PO
[2019-03-22 18:07] LABS: HEMATOCRIT 43.3 % (42.0-52.0); HEMOGLOBIN 13.9 g/dl (13.5-17.5); MEAN CORPUSCULAR HEMOGLOBIN 25.8 pg (27.0-33.0); MEAN CORPUSCULAR HGB CONC 32.1 g/dl (32.0-36.5); MEAN CORPUSCULAR VOLUME 80.3 fl (80.0-96.0); PLATELET COUNT, AUTOMATED 255 10^3/uL (150-450); RED BLOOD COUNT 5.39 10^6/uL (4.30-6.10); WHITE BLOOD COUNT 5.4 10^3/uL (4.0-10.0)
[2019-03-22 18:35] LABS: ALBUMIN 3.8 GM/DL (3.2-5.2); ALT/SGPT 197 U/L (12-78); BILIRUBIN,TOTAL 0.7 MG/DL (0.2-1.0); BLOOD UREA NITROGEN 6 MG/DL (7-18); CARBON DIOXIDE LEVEL 32 MEQ/L (21-32); CHLORIDE LEVEL 105 MEQ/L (98-107); CREATININE FOR GFR 1.08 MG/DL (0.70-1.30); GLOMERULAR FILTRATION RATE > 60.0 (>56); GLUCOSE, FASTING 206 MG/DL (70-100); POTASSIUM SERUM 3.5 MEQ/L (3.5-5.1); SODIUM LEVEL 141 MEQ/L (136-145); TOTAL PROTEIN 7.7 GM/DL (6.4-8.2)
[2019-03-22 19:22] LABS: HIV 1&2 SCREEN CENTAUR NEGATIVE (NEGATIVE)
[2019-03-22 20:41] LABS: CHLAMYDIA DNA AMPLIFICATION NEGATIVE (NEGATIVE); GC DNA AMPLIFICATION NEGATIVE (NEGATIVE)
--- NOTE | 2019-03-23 06:45 | ECGEPIP ---
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 : 1965 Requested By: Nik Lopez Order Number: [id number] Reading MD: Ning Herrera Measurements Intervals [place] Rate: 69 P: 45 MT: 160 QRS: QRSD: 120 T: 62 QT: 445 QTc: 479 Interpretive Statements SINUS RHYTHM WITH SINUS ARRHYTHMIA INFERIOR MYOCARDIAL INFARCTION, PROBABLY OLD ST T WAVW ABN LATERALLY NOW WITH BORDERLINE PROLONG QTC C/W02/12/19 Electronically Signed on 03-23-2019 6:44:36 EDT by Ning Herrera
[2019-03-25 11:42] LABS: HEPATITIS B SURFACE ANTIGEN NEGATIVE (NEGATIVE)
[2019-03-25 12:45] LABS: HEPATITIS C VIRUS ABY INDEX > 11.0 INDEX (<0.8)
== END ==
LOC: M EKG 17:03
PROVIDERS: ATTEND Family Medicine
DX: F11.20 Opioid dependence, uncomplicated (principal)

== ENCOUNTER 2019-10-31 12:15 | Emergency (ER) | payer MEDICAID ==
[~2019-10-31] VITALS: Ht 167.6 cm; Wt 88.2 kg
[2019-10-31] MEDS ORDERED: SUBO8MIS (12:22)
[2019-10-31] MEDS ORDERED: DOXE25CA (12:22)
[2019-10-31] MEDS ORDERED: LIDOCAINE 5% (LIDODERM) PATCH TD ONE (15:15)
[2019-10-31] MEDS ORDERED: LIDO5DIS41 TD (15:26)
[2019-10-31 15:32] VITALS: BP 148/92
[2019-10-31] MEDS ORDERED: **NOTE PATIENT COMMENT** MISC XX SCH (21:00)
== END 2019-10-31 15:35 | disposition home or self-care (01) ==
LOC: M ED 12:15
DX: S29.012A Strain of muscle and tendon of back wall of thorax, initial encounter (principal); W01.0XXA Fall on same level from slipping, tripping and stumbling without subsequent striking against object, initial encounter; Y92.480 Sidewalk as the place of occurrence of the external cause; I10 Essential (primary) hypertension; F33.9 Major depressive disorder, recurrent, unspecified; F41.9 Anxiety disorder, unspecified; Z79.899 Other long term (current) drug therapy; Z79.891 Long term (current) use of opiate analgesic; Z88.8 Allergy status to other drugs, medicaments and biological substances; F17.210 Nicotine dependence, cigarettes, uncomplicated

== ENCOUNTER → 2019-11-11 | Outpatient (CLI) | payer MEDICAID ==
[~2019-11-11] MED LIST changes: +DOXE25CA; +LIDO5DIS41 TD; +SUBO8MIS
[2019-11-11 15:41] LABS: HEMATOCRIT 39.8 % (42.0-52.0); HEMOGLOBIN 13.1 g/dl (13.5-17.5); MEAN CORPUSCULAR HEMOGLOBIN 29.1 pg (27.0-33.0); MEAN CORPUSCULAR HGB CONC 32.9 g/dl (32.0-36.5); MEAN CORPUSCULAR VOLUME 88.4 fl (80.0-96.0); PLATELET COUNT, AUTOMATED 315 10^3/uL (150-450); WHITE BLOOD COUNT 8.2 10^3/uL (4.0-10.0)
[2019-11-11 16:14] LABS: ALBUMIN 3.9 GM/DL (3.2-5.2); ALT/SGPT 69 U/L (12-78); BILIRUBIN,TOTAL 0.7 MG/DL (0.2-1.0); BLOOD UREA NITROGEN 17 MG/DL (7-18); CALCIUM LEVEL 9.7 MG/DL (8.5-10.1); CARBON DIOXIDE LEVEL 31 MEQ/L (21-32); CHLORIDE LEVEL 107 MEQ/L (98-107); CREATININE FOR GFR 1.12 MG/DL (0.70-1.30); GLOMERULAR FILTRATION RATE > 60.0 (>56); GLUCOSE, FASTING 86 MG/DL (70-100); POTASSIUM SERUM 4.7 MEQ/L (3.5-5.1); SODIUM LEVEL 141 MEQ/L (136-145); TOTAL PROTEIN 8.1 GM/DL (6.4-8.2)
[2019-11-11 16:27] LABS: HEPATITIS B SURFACE ANTIGEN NEGATIVE (NEGATIVE)
[2019-11-11 16:57] LABS: HIV 1&2 SCREEN CENTAUR NEGATIVE (NEGATIVE)
[2019-11-11 17:12] LABS: CHLAMYDIA DNA AMPLIFICATION NEGATIVE (NEGATIVE); GC DNA AMPLIFICATION NEGATIVE (NEGATIVE)
[2019-11-11 17:12] LABS: HEPATITIS C VIRUS ABY INDEX > 11.0 INDEX (<0.8)
== END ==
LOC: M LAB 14:28
PROVIDERS: ATTEND Family Medicine
DX: F11.90 Opioid use, unspecified, uncomplicated (principal)

== ENCOUNTER 2019-11-18 15:46 | Emergency (ER) | payer MEDICAID ==
[2019-11-18 16:19] VITALS: BP 105/52
== END 2019-11-18 17:48 | disposition home or self-care (01) ==
LOC: M ED 15:46
DX: G89.29 Other chronic pain (principal); F19.10 Other psychoactive substance abuse, uncomplicated; F12.10 Cannabis abuse, uncomplicated; F11.10 Opioid abuse, uncomplicated; F32.9 Major depressive disorder, single episode, unspecified; F17.200 Nicotine dependence, unspecified, uncomplicated; Z79.899 Other long term (current) drug therapy; Z88.6 Allergy status to analgesic agent

== ENCOUNTER → 2020-05-06 | Outpatient (REF) | payer MEDICAID ==
[~2020-05-06] MED LIST changes: -AMLO10TA5; +AMLO1TAB25; +CYCL-707 PO; -CYCL10TA PO; -LISI20TA19 PO; +LISI20TA35 PO
[2020-05-06 14:31] LABS: ALT/SGPT 561 U/L (12-78); BILIRUBIN,TOTAL 0.5 MG/DL (0.2-1.0); BLOOD UREA NITROGEN 8 MG/DL (7-18); CALCIUM LEVEL 8.4 MG/DL (8.5-10.1); CARBON DIOXIDE LEVEL 31 MEQ/L (21-32); CHLORIDE LEVEL 107 MEQ/L (98-107); CHOLESTEROL LEVEL 130 MG/DL (<200); CREATININE FOR GFR 0.92 MG/DL (0.70-1.30); GLOMERULAR FILTRATION RATE > 60.0 (>56); GLUCOSE, FASTING 100 MG/DL (70-100); POTASSIUM SERUM 3.8 MEQ/L (3.5-5.1); SODIUM LEVEL 144 MEQ/L (136-145); TRIGLYCERIDES LEVEL 72 MG/DL (<150)
[2020-05-06 14:32] LABS: ALBUMIN 3.4 GM/DL (3.2-5.2); CHOLESTEROL RISK RATIO 2.888 (<5); HDL CHOLESTEROL 45 MG/DL (>40); LDL CHOLESTEROL 71 MG/DL (<100); NON-HDL-C 85 MG/DL; TOTAL PROTEIN 7.1 GM/DL (6.4-8.2)
[2020-05-06 16:25] LABS: HEMOGLOBIN A1c 5.5 %
== END ==
LOC: M LAB REF 08:35
PROVIDERS: ATTEND Nurse Practitioner Family
DX: I10 Essential (primary) hypertension (principal)

== ENCOUNTER → 2020-05-07 | Outpatient (CLI) | payer MEDICAID ==
[2020-05-07 12:08] LABS: HEMATOCRIT 39.1 % (42.0-52.0); HEMOGLOBIN 12.9 g/dl (13.5-17.5); MEAN CORPUSCULAR HEMOGLOBIN 27.8 pg (27.0-33.0); MEAN CORPUSCULAR VOLUME 84.3 fl (80.0-96.0); RED BLOOD COUNT 4.64 10^6/uL (4.30-6.10)
[2020-05-07 13:01] LABS: PLATELET COUNT, AUTOMATED 89 10^3/uL (150-450)
[2020-05-07 13:27] LABS: CHLAMYDIA DNA AMPLIFICATION NEGATIVE (NEGATIVE); GC DNA AMPLIFICATION NEGATIVE (NEGATIVE)
[2020-05-07 13:37] LABS: ALBUMIN 3.5 GM/DL (3.2-5.2); ALT/SGPT 545 U/L (12-78); BILIRUBIN,TOTAL 0.6 MG/DL (0.2-1.0); BLOOD UREA NITROGEN 14 MG/DL (7-18); CALCIUM LEVEL 8.9 MG/DL (8.5-10.1); CARBON DIOXIDE LEVEL 34 MEQ/L (21-32); CHLORIDE LEVEL 105 MEQ/L (98-107); CREATININE FOR GFR 0.94 MG/DL (0.70-1.30); GLOMERULAR FILTRATION RATE > 60.0 (>56); GLUCOSE, FASTING 98 MG/DL (70-100); HEPATITIS B SURFACE ANTIGEN NEGATIVE (NEGATIVE); HIV 1&2 SCREEN CENTAUR NEGATIVE (NEGATIVE); POTASSIUM SERUM 3.2 MEQ/L (3.5-5.1); SODIUM LEVEL 142 MEQ/L (136-145); TOTAL PROTEIN 7.4 GM/DL (6.4-8.2)
[2020-05-07 13:39] LABS: HEPATITIS C VIRUS ABY INDEX > 11.0 INDEX (<0.8)
--- NOTE | 2020-06-02 16:38 | ECGEPIP ---
[facility] Test Date: 2020-05-07 Pat Name: MAGY RIVAS Department: Room: - Gender: Male Shop Assistant: EDMUNDO : 1965 Requested By: Nik Lopez Order Number: [id number] Reading MD: Ning Herrera Measurements Intervals [place] Rate: 81 P: 50 [place]: 151 QRS: -24 QRSD: 110 T: 63 QT: 411 QTc: 478 Interpretive Statements SINUS RHYTHM, LEFT ATRIAL ENLARGEMENT INFERIOR MYOCARDIAL INFARCTION POSSIBLE - Q IN AVF VARIABLE ABNORMAL ECG ST & T wAVE ABNORMALITIES LATERALLY. ST DEPRESSION SEE SCANNED DOWNTIME REPORT
== END ==
LOC: M LAB 07:53
PROVIDERS: ATTEND Family Medicine
DX: F11.11 Opioid abuse, in remission (principal)

== ENCOUNTER → 2021-05-05 | Outpatient (CLI) | payer MEDICAID ==
[~2021-05-05] MED LIST changes: -CLIN150C14 PO; +CLIN150C17 PO; -LISI-538 PO; +LISI20TA33 PO; +METH-1164; -METH1TAB40
[2021-05-05 13:08] LABS: HEMATOCRIT 44.3 % (42.0-52.0); HEMOGLOBIN 14.5 g/dl (13.5-17.5); MEAN CORPUSCULAR HEMOGLOBIN 27.9 pg (27.0-33.0); MEAN CORPUSCULAR HGB CONC 32.7 g/dl (32.0-36.5); MEAN CORPUSCULAR VOLUME 85.4 fl (80.0-96.0); PLATELET COUNT, AUTOMATED 197 10^3/uL (150-450); RED BLOOD COUNT 5.19 10^6/uL (4.30-6.10); WHITE BLOOD COUNT 9.8 10^3/uL (4.0-10.0)
[2021-05-05 13:45] LABS: ALBUMIN 3.9 GM/DL (3.2-5.2); ALT/SGPT 54 U/L (12-78); BILIRUBIN,TOTAL 0.7 MG/DL (0.2-1.0); BLOOD UREA NITROGEN 11 MG/DL (7-18); CALCIUM LEVEL 9.6 MG/DL (8.5-10.1); CARBON DIOXIDE LEVEL 33 MEQ/L (21-32); CHLORIDE LEVEL 104 MEQ/L (98-107); GLOMERULAR FILTRATION RATE > 60.0 (>56); GLUCOSE, FASTING 83 MG/DL (70-100); POTASSIUM SERUM 3.9 MEQ/L (3.5-5.1); SODIUM LEVEL 140 MEQ/L (136-145); TOTAL PROTEIN 7.6 GM/DL (6.4-8.2)
[2021-05-05 14:05] LABS: HEPATITIS B SURFACE ANTIGEN NEGATIVE (NEGATIVE)
[2021-05-05 14:34] LABS: HIV 1&2 SCREEN CENTAUR NEGATIVE (NEGATIVE)
[2021-05-05 14:49] LABS: HEPATITIS C VIRUS ABY INDEX > 11.0 INDEX (<0.8)
[2021-05-05 15:06] LABS: GC DNA AMPLIFICATION NEGATIVE (NEGATIVE)
--- NOTE | 2021-05-06 10:07 | ECGEPIP ---
[facility] Test Date: 2021-05-05 Pat Name: MAGY RIVAS Department: Room: - Gender: Male Chute Boss: EDMUNDO : 1965 Requested By: Nik Lopez Order Number: [id number] Reading MD: Toy Dudley Measurements Intervals [place] Rate: 60 P: 45 NJ: 154 QRS: -6 QRSD: 98 T: 90 QT: 474 QTc: 474 Interpretive Statements Normal sinus rhythm Possible Left atrial enlargement Inferior infarct , age undetermined Nonspecific ST-T wave abnormalities Similar to tracing done 05-07-20 Electronically Signed on 05-06-2021 10:06:49 EDT by Toy Dudley
== END ==
LOC: M LAB 12:10
PROVIDERS: ATTEND Family Medicine
DX: F11.20 Opioid dependence, uncomplicated (principal)
CPT/HCPCS: 36415; 80053; 85027; 86780; 86803; 87340; 87389; 87491; 87521; 87591; 93005; G0480

== ENCOUNTER → 2021-05-06 | Outpatient (CLI) | payer MEDICAID | LOC: M LAB 08:42 | PROVIDERS: ATTEND Family Medicine | DX: F11.11 Opioid abuse, in remission (principal) | CPT/HCPCS: 36415; G0480 ==

== ENCOUNTER → 2022-06-22 | Outpatient (CLI) | payer MEDICAID, OTHER ==
[~2022-06-22] MED LIST changes: -LISI20TA20; -LISI20TA20 PO; +LISI20TA37; +LISI20TA37 PO
[2022-06-22 08:50] LABS: HEMATOCRIT 39.1 % (42.0-52.0); HEMOGLOBIN 12.4 g/dl (13.5-17.5); MEAN CORPUSCULAR HEMOGLOBIN 25.4 pg (27.0-33.0); MEAN CORPUSCULAR HGB CONC 31.7 g/dl (32.0-36.5); PLATELET COUNT, AUTOMATED 208 10^3/uL (150-450); RED BLOOD COUNT 4.89 10^6/uL (4.30-6.10); WHITE BLOOD COUNT 10.1 10^3/uL (4.0-10.0)
== END ==
LOC: M LAB 08:07
PROVIDERS: ATTEND Internal Medicine Infectious Disease
DX: B18.2 Chronic viral hepatitis C (principal)

== ENCOUNTER 2022-07-03 02:26 | Emergency (ER) | payer OTHER ==
[~2022-07-03] VITALS: Ht 177.8 cm; Wt 77.2 kg
[2022-07-03] MEDS ORDERED: ISOVUE-370 76% 100ML VIAL As Ordered ONE (02:48)
[2022-07-03 03:23] LABS: BASO # 0.1 10^3/uL (0.0-0.2); BASO % 0.7 % (0.0-1.0); EOS # 0.3 10^3/uL (0.0-0.5); EOS % 2.8 % (0.0-3.0); HEMATOCRIT 42.3 % (42.0-52.0); HEMOGLOBIN 13.5 g/dl (13.5-17.5); LYMPH # 4.6 10^3/uL (1.5-5.0); MEAN CORPUSCULAR HEMOGLOBIN 25.1 pg (27.0-33.0); MEAN CORPUSCULAR HGB CONC 31.9 g/dl (32.0-36.5); MEAN CORPUSCULAR VOLUME 78.6 fl (80.0-96.0); MONO # 0.9 10^3/uL (0.0-0.8); MONO % 8.2 % (2.0-8.0); NEUTROPHILS # 5.2 10^3/uL (1.5-8.5); NEUTROPHILS % 47.1 % (36.0-66.0); PLATELET COUNT, AUTOMATED 225 10^3/uL (150-450); RED BLOOD COUNT 5.38 10^6/uL (4.30-6.10); WHITE BLOOD COUNT 11.1 10^3/uL (4.0-10.0)
[2022-07-03] MEDS: LABETALOL 100MG/20ML VIAL IV STA ×2 (03:39→03:55)
[2022-07-03 04:09] LABS: VENOUS BASE EXCESS 0.8 (-2.0-2.0); VENOUS HCO3 25.2 MEQ/L (23.0-27.0); VENOUS O2 SATURATION 94.2 % (60.0-80.0); VENOUS PARTIAL PRESSURE CO2 39.9 mmHg (38.0-50.0); VENOUS PARTIAL PRESSURE O2 70.9 mmHg (30.0-50.0); VENOUS PH 7.419 UNITS (7.330-7.430); VENOUS STANDARD HCO3 25.1 MEQ/L; VENOUS TOTAL CO2 26.5 MEQ/L (24.0-28.0)
[2022-07-03 04:11] LABS: ACETAMINOPHEN LEVEL < 2.0 UG/ML (10.0-30.0); ALBUMIN 3.9 GM/DL (3.2-5.2); ALT/SGPT 53 U/L (12-78); BILIRUBIN,DIRECT 0.2 MG/DL (0.0-0.2); BILIRUBIN,TOTAL 0.8 MG/DL (0.2-1.0); BLOOD UREA NITROGEN 27 MG/DL (7-18); CALCIUM LEVEL 8.9 MG/DL (8.5-10.1); CARBON DIOXIDE LEVEL 27 MEQ/L (21-32); CHLORIDE LEVEL 102 MEQ/L (98-107); CREATININE FOR GFR 1.54 MG/DL (0.70-1.30); ETHYL ALCOHOL (ETHANOL) < 0.003 % (0.000-0.010); GLOMERULAR FILTRATION RATE 49.6 (>56); GLUCOSE, FASTING 102 MG/DL (70-100); POTASSIUM SERUM 4.1 MEQ/L (3.5-5.1); SALICYLATE LEVEL < 1.7 MG/DL (5.0-30.0); SODIUM LEVEL 135 MEQ/L (136-145); VALPROIC ACID (DEPAKOTE) < 3.0 UG/ML (50.0-100.0)
[2022-07-03 04:14] LABS: AMPHETAMINES LEVEL URINE POSITIVE (NEGATIVE); BARBITURATES URINE NEGATIVE (NEGATIVE); BENZODIAZEPINES URINE NEGATIVE (NEGATIVE); CANNABINOIDS URINE POSITIVE (NEGATIVE); COCAINE METABOLITE URINE NEGATIVE (NEGATIVE); METHADONE URINE POSITIVE (NEGATIVE); OPIATES URINE NEGATIVE (NEGATIVE); PHENCYCLIDINE URINE NEGATIVE (NEGATIVE)
[2022-07-03 04:29] LABS: CK-MB VALUE MASS 5.1 NG/ML (<3.6); MB/CK RELATIVE INDEX 1.35 (< OR =4)
[2022-07-03 04:41] LABS: OSMOLALITY SERUM 296 MOSM/KG (275-295)
[2022-07-03 05:59] LABS: MB/CK RELATIVE INDEX 1.29 (< OR =4)
[2022-07-03] MEDS ORDERED: VALPROATE SOD INJ 500 MG in D5W 50 ML IV ONE (06:40)
[2022-07-03 10:09] VITALS: BP 187/96
== END 2022-07-03 10:11 | disposition home or self-care (01) ==
LOC: M ED 02:26
DX: G40.909 Epilepsy, unspecified, not intractable, without status epilepticus (principal); K76.89 Other specified diseases of liver; J43.9 Emphysema, unspecified; Z98.1 Arthrodesis status; R91.1 Solitary pulmonary nodule; I10 Essential (primary) hypertension; F19.10 Other psychoactive substance abuse, uncomplicated; B19.20 Unspecified viral hepatitis C without hepatic coma; M48.00 Spinal stenosis, site unspecified; Z88.6 Allergy status to analgesic agent; Z79.899 Other long term (current) drug therapy

== ENCOUNTER 2022-08-18 02:50 | Emergency (ER) | payer OTHER ==
[~2022-08-18] VITALS: Ht 177.8 cm; Wt 72.7 kg
[2022-08-18 02:50] VITALS: BP 158/100
[2022-08-19] MEDS ORDERED: GUAI200T6 PO (06:10)
[2022-08-19] MEDS ORDERED: COMBAER6 INH (06:10)
[2022-08-19] MEDS ORDERED: ACET-716 PO (06:36)
== END 2022-08-18 07:12 | disposition left against medical advice (07) ==
LOC: M ED 02:50
DX: Z53.21 Procedure and treatment not carried out due to patient leaving prior to being seen by health care provider (principal)

== ENCOUNTER 2022-08-19 03:57 | Emergency (ER) | payer OTHER ==
[~2022-08-19] VITALS: Ht 177.8 cm; Wt 81.0 kg
[2022-08-19 03:59] VITALS: BP 168/98
[2022-08-19] MEDS ORDERED: ACETAMINOPH W/CODEINE #3 TAB UD PO ONE (06:05)
[2022-08-19] MEDS ORDERED: COMBIVENT RESPIMAT 100-20MCG INHALER 4GM INH ONE (06:05)
[2022-08-19] MEDS ORDERED: COMBAER6 INH (06:10)
[2022-08-19] MEDS ORDERED: GUAI200T6 PO (06:10)
[2022-08-19] MEDS ORDERED: ACET-716 PO (06:36)
== END 2022-08-19 06:57 | disposition home or self-care (01) ==
LOC: M ED 03:57
DX: J20.4 Acute bronchitis due to parainfluenza virus (principal); R07.89 Other chest pain; R05.9 Cough, unspecified; F17.200 Nicotine dependence, unspecified, uncomplicated; F19.10 Other psychoactive substance abuse, uncomplicated; Z79.899 Other long term (current) drug therapy; Z88.6 Allergy status to analgesic agent

== ENCOUNTER 2023-02-15 17:26 | Inpatient (IN) | payer MEDICAID, OTHER ==
[~2023-02-15] VITALS: Ht 175.3 cm; Wt 88.5 kg
[~2023-02-15 17:26] MED LIST changes: +COMBAER6 INH; +GUAI200T6 PO
[2023-02-15] MEDS ORDERED: METH-1177 PO (17:35)
[2023-02-15 18:12] LABS: HEMATOCRIT 45.8 % (42.0-52.0); HEMOGLOBIN 14.3 g/dl (13.5-17.5); MEAN CORPUSCULAR HEMOGLOBIN 25.1 pg (27.0-33.0); MEAN CORPUSCULAR HGB CONC 31.2 g/dl (32.0-36.5); MEAN CORPUSCULAR VOLUME 80.5 fl (80.0-96.0); PLATELET COUNT, AUTOMATED 203 10^3/uL (150-450); RED BLOOD COUNT 5.69 10^6/uL (4.30-6.10); WHITE BLOOD COUNT 8.6 10^3/uL (4.0-10.0)
[2023-02-15 18:37] LABS: BARBITURATES URINE NEGATIVE (NEGATIVE); BENZODIAZEPINES URINE NEGATIVE (NEGATIVE); COCAINE METABOLITE URINE NEGATIVE (NEGATIVE); OPIATES URINE NEGATIVE (NEGATIVE); PHENCYCLIDINE URINE NEGATIVE (NEGATIVE)
[2023-02-15 18:38] LABS: ETHYL ALCOHOL (ETHANOL) < 0.003 % (0.000-0.010)
[2023-02-15 18:38] LABS: AMPHETAMINES LEVEL URINE POSITIVE (NEGATIVE); CANNABINOIDS URINE POSITIVE (NEGATIVE); METHADONE URINE POSITIVE (NEGATIVE)
[2023-02-15 18:40] LABS: ACETAMINOPHEN LEVEL < 2.0 UG/ML (10.0-20.0); ALBUMIN 3.9 G/DL (3.2-5.2); ALKALINE PHOSPHATASE 117 U/L (46-116); ALT/SGPT 51 U/L (7.0-40); AST/SGOT 42 U/L (<34); BILIRUBIN,DIRECT 0.2 MG/DL (<0.4); BILIRUBIN,TOTAL 0.5 MG/DL (0.3-1.2); BLOOD UREA NITROGEN 13 MG/DL (9-23); CALCIUM LEVEL 8.8 MG/DL (8.5-10.1); CARBON DIOXIDE LEVEL 28 MMOL/L (20-31); CHLORIDE LEVEL 104 MMOL/L (98-107); CREATININE FOR GFR 0.98 MG/DL (0.70-1.30); GLOMERULAR FILTRATION RATE > 60.0 (>56); GLUCOSE, FASTING 114 MG/DL (60-100); SALICYLATE LEVEL < 3.0 MG/DL (<30); SODIUM LEVEL 140 MMOL/L (136-145); TOTAL PROTEIN 7.5 G/DL (5.7-8.2)
[2023-02-15 18:42] LABS: THYROID STIMULATING HORMONE 1.576 uIU/ML (0.55-4.78)
[2023-02-15] MEDS ORDERED: MED REC IN PROGRESS XX SCH (22:15)
[2023-02-15] MEDS ORDERED: METH10CO PO (23:07)
[2023-02-15] MEDS ORDERED: COMBAER6 INH (23:07)
[2023-02-15] MEDS ORDERED: MED REC IN PROGRESS XX ONE (23:10)
[2023-02-15] MEDS ORDERED: traZODone 50 MG TAB PO PRN (23:15)
[2023-02-15] MEDS ORDERED: diphenhydrAMINE 25MG CAP PO PRN (23:15)
[2023-02-15] MEDS ORDERED: IBUPROFEN 400MG TAB PO PRN (23:15)
[2023-02-15] MEDS ORDERED: MOM 30ML SUSPENSION UDC PO PRN (23:15)
[2023-02-15] MEDS ORDERED: MAALOX 30 ML SUSP *UDC PO PRN (23:15)
[2023-02-15] MEDS ORDERED: LORazepam 1 MG TAB PO ONE (23:40)
[2023-02-16 03:50] VITALS: BP 171/87; TEMP 97.9; O2SAT 99
[2023-02-16] MEDS ORDERED: **hydrALAZINE** 50 MG TAB PO ONE ×2 (04:25→23:55)
[2023-02-16 06:18] VITALS: BP 140/96
[2023-02-16] MEDS ORDERED: HOME MED LIST COMPLETE! XX SCH (07:55)
[2023-02-16] MEDS: NICOTINE 21MG/24HR 1 EA TRANSDERMAL TD SCH (09:51)
[2023-02-16] MEDS: METHADONE 10MG TAB PO SCH (11:05)
[2023-02-16] MEDS: ACETAMINOPHEN TAB 650MG DOSE (2X325MG) PO PRN ×2 (16:11→23:31)
[2023-02-16 17:23] LABS: HEPATITIS B SURFACE ANTIGEN NEGATIVE (NEGATIVE)
[2023-02-16 17:43] LABS: HEPATITIS B CORE ANTIBODY IGM NEGATIVE (NEGATIVE)
[2023-02-16 18:31] VITALS: BP 149/87; TEMP 97.8; O2SAT 97
[2023-02-16 19:11] LABS: HEPATITIS C VIRUS ABY INDEX > 11.0 INDEX (<0.8)
[2023-02-16] MEDS: DIVALPROEX 500 MG TAB PO SCH (21:10)
[2023-02-16] MEDS: RAMELTEON 8 MG TAB (ROZEREM) PO PRN (21:11)
[2023-02-16] MEDS: PREGABALIN 100 MG CAP (LYRICA) PO SCH (21:11)
[2023-02-17 05:59] VITALS: BP 146/80; TEMP 98.4; O2SAT 99
[2023-02-17 07:55] LABS: BLOOD UREA NITROGEN 16 MG/DL (9-23); CALCIUM LEVEL 9.2 MG/DL (8.5-10.1); CARBON DIOXIDE LEVEL 29 MMOL/L (20-31); CHLORIDE LEVEL 104 MMOL/L (98-107); CREATININE FOR GFR 0.98 MG/DL (0.70-1.30); GLOMERULAR FILTRATION RATE > 60.0 (>56); GLUCOSE, FASTING 78 MG/DL (60-100); POTASSIUM SERUM 3.7 MMOL/L (3.5-5.1); SODIUM LEVEL 139 MMOL/L (136-145)
[2023-02-17 08:56] VITALS: BP 144/96
[2023-02-17] MEDS: NICOTINE 21MG/24HR 1 EA TRANSDERMAL TD SCH (09:00)
[2023-02-17] MEDS: PREGABALIN 100 MG CAP (LYRICA) PO SCH ×3 (09:01→21:26)
[2023-02-17] MEDS: METHADONE 10MG TAB PO SCH (09:01)
[2023-02-17] MEDS: DIVALPROEX 500 MG TAB PO SCH ×2 (10:07→21:26)
[2023-02-17 16:53] VITALS: BP 140/72; TEMP 98.2; O2SAT 96
[2023-02-18 06:32] VITALS: BP 152/92; TEMP 98.4; O2SAT 99
[2023-02-18] MEDS: NICOTINE 21MG/24HR 1 EA TRANSDERMAL TD SCH (09:38)
[2023-02-18] MEDS: PREGABALIN 100 MG CAP (LYRICA) PO SCH ×3 (09:39→21:18)
[2023-02-18] MEDS: METHADONE 10MG TAB PO SCH (09:39)
[2023-02-18] MEDS: DIVALPROEX 500 MG TAB PO SCH ×2 (09:39→21:18)
[2023-02-18 16:13] VITALS: BP 128/70; TEMP 97.4; O2SAT 97
[2023-02-18] MEDS: RAMELTEON 8 MG TAB (ROZEREM) PO PRN (21:18)
[2023-02-19 06:42] VITALS: BP 138/90; TEMP 98.2; O2SAT 98
[2023-02-19] MEDS ORDERED: BACTRIM 160MG/800MG DS TAB PO SCH (09:00)
[2023-02-19 09:04] VITALS: BP 158/92
[2023-02-19] MEDS: PREGABALIN 100 MG CAP (LYRICA) PO SCH (09:04)
[2023-02-19] MEDS: DIVALPROEX 500 MG TAB PO SCH (09:04)
[2023-02-19] MEDS: METHADONE 10MG TAB PO SCH (09:04)
[2023-02-19] MEDS: NICOTINE 21MG/24HR 1 EA TRANSDERMAL TD SCH (09:04)
[2023-02-19] MEDS ORDERED: CEPHALEXIN 500 MG CAP PO SCH (12:00)
[2023-02-19 13:10] LABS: BASO # 0.1 10^3/uL (0.0-0.2); BASO % 0.7 % (0.0-1.0); EOS # 0.5 10^3/uL (0.0-0.5); EOS % 6.3 % (0.0-3.0); HEMOGLOBIN 13.4 g/dl (13.5-17.5); LYMPH # 3.6 10^3/uL (1.5-5.0); LYMPH % 42.9 % (24.0-44.0); MEAN CORPUSCULAR HEMOGLOBIN 25.5 pg (27.0-33.0); MEAN CORPUSCULAR HGB CONC 31.2 g/dl (32.0-36.5); MEAN CORPUSCULAR VOLUME 81.7 fl (80.0-96.0); MONO # 0.7 10^3/uL (0.0-0.8); MONO % 7.7 % (2.0-8.0); NEUTROPHILS # 3.5 10^3/uL (1.5-8.5); NEUTROPHILS % 42.2 % (36.0-66.0); PLATELET COUNT, AUTOMATED 210 10^3/uL (150-450); RED BLOOD COUNT 5.26 10^6/uL (4.30-6.10); WHITE BLOOD COUNT 8.4 10^3/uL (4.0-10.0)
[2023-02-19] MEDS ORDERED: SENOKOT S TAB PO PRN (13:20)
[2023-02-19] MEDS ORDERED: MOM 30ML SUSPENSION UDC PO PRN (13:20)
[2023-02-19] MEDS ORDERED: PERCOCET 5MG/325MG TAB PO PRN ×2 (13:20)
[2023-02-19] MEDS: ACETAMINOPHEN TAB 650MG DOSE (2X325MG) PO PRN (13:21)
[2023-02-19 13:37] LABS: BLOOD UREA NITROGEN 14 MG/DL (9-23); CALCIUM LEVEL 9.2 MG/DL (8.5-10.1); CARBON DIOXIDE LEVEL 31 MMOL/L (20-31); CHLORIDE LEVEL 104 MMOL/L (98-107); CREATININE FOR GFR 0.96 MG/DL (0.70-1.30); GLOMERULAR FILTRATION RATE > 60.0 (>56); GLUCOSE, FASTING 102 MG/DL (60-100); POTASSIUM SERUM 4.4 MMOL/L (3.5-5.1); SODIUM LEVEL 141 MMOL/L (136-145)
[2023-02-19 13:47] LABS: ERYTHROCYTE SEDIMENTATION RATE 25 mm/hr (0-20)
[2023-02-19] MEDS ORDERED: PERCOCET 5MG/325MG TAB PO ONE (14:00)
[2023-02-19 15:00] VITALS: BP 168/105; TEMP 98.6; O2SAT 98
[2023-02-19] MEDS ORDERED: ISOSORBIDE DIN. (ISORDIL) 20 MG TAB PO ONE (15:00)
[2023-02-19] MEDS ORDERED: **hydrALAZINE** 10 MG TAB PO SCH (17:00)
[2023-02-19] MEDS ORDERED: LACTOBACILLUS ACIDOPHILUS CAP (BACID) PO SCH (18:00)
[2023-02-20] MEDS ORDERED: ISOSORBIDE DIN. (ISORDIL) 20 MG TAB PO SCH (07:00)
[2023-02-20] MEDS ORDERED: LIDOCAINE 2% 100MG/5ML SDV (FOR ANES.) As Ordered ONE (17:05)
[2023-02-20] MEDS ORDERED: propofoL 200 MG/20 ML VIAL As Ordered ONE (17:05)
[2023-02-20] MEDS ORDERED: ACETAMINOPHEN 1000MG 100ML IV BAG As Ordered ONE (17:05)
[2023-02-20] MEDS ORDERED: SUCCINYLCHOLINE 100MG/5ML SYRINGE As Ordered ONE (17:05)
[2023-02-20] MEDS ORDERED: ONDANSETRON 4MG 2ML VIAL As Ordered ONE ×2 (17:05→17:37)
[2023-02-20] MEDS ORDERED: MIDAZOLAM INJ 2MG/2ML VIAL As Ordered ONE (17:07)
[2023-02-20] MEDS ORDERED: METOCLOPRAMIDE INJ 10MG/2ML VIAL As Ordered ONE (17:37)
[2023-02-20] MEDS ORDERED: fentaNYL 100 MCG/2 ML INJECTION As Ordered ONE (17:43)
[2023-02-21 00:08] LABS: HEPATITIS C QUANTITATION 7720000 IU/mL (.); HEPATITIS C VIRUS GENOTYPE 2b (.)
== END 2023-02-19 14:49 | disposition short-term general hospital (02) | DRG 754 ==
LOC: M ED 17:26 → M ED INP 23:15 → M PSY 02-16 03:50
PROVIDERS: ADMIT Student in an Organized Health Care Education/Training Program; ATTEND Student in an Organized Health Care Education/Training Program
DX: F32.A Depression, unspecified (principal); G40.409 Other generalized epilepsy and epileptic syndromes, not intractable, without status epilepticus; R45.851 Suicidal ideations; F11.24 Opioid dependence with opioid-induced mood disorder; M51.26 Other intervertebral disc displacement, lumbar region; I10 Essential (primary) hypertension; L02.412 Cutaneous abscess of left axilla; F11.23 Opioid dependence with withdrawal; K21.9 Gastro-esophageal reflux disease without esophagitis; F15.10 Other stimulant abuse, uncomplicated; F17.200 Nicotine dependence, unspecified, uncomplicated; F12.10 Cannabis abuse, uncomplicated; M47.812 Spondylosis without myelopathy or radiculopathy, cervical region; G89.29 Other chronic pain; Z87.820 Personal history of traumatic brain injury; Z88.6 Allergy status to analgesic agent; Z79.899 Other long term (current) drug therapy

== ENCOUNTER 2023-02-19 13:52 | Inpatient (IN) | payer OTHER, MEDICAID ==
[~2023-02-19] VITALS: Ht 175.3 cm; Wt 88.5 kg
[~2023-02-19 13:52] MED LIST changes: +METH-1177 PO
[2023-02-19 15:00] VITALS: BP 138/68; TEMP 98.6; O2SAT 98
[2023-02-19] MEDS ORDERED: PERCOCET 5MG/325MG TAB PO PRN ×2 (15:20)
[2023-02-19] MEDS ORDERED: MORPHINE 10 MG/ML 1ML VIAL IV PRN (15:20)
[2023-02-19] MEDS: NS 1,000 ML IV SCH ×3 (16:09→18:53)
[2023-02-19] MEDS ORDERED: diphenhydrAMINE 25MG CAP PO PRN (17:05)
[2023-02-19] MEDS: ceFAZolin SOD 1 GM in D5W MINI-BAG PLUS 50 ML IV SCH (17:20)
[2023-02-19] MEDS: PREGABALIN 100 MG CAP (LYRICA) PO SCH ×2 (18:19→21:58)
[2023-02-19] MEDS: KETOROLAC 30 MG/ML 1ML VIAL IV SCH (18:21)
[2023-02-19] MEDS: ISOSORBIDE DIN. (ISORDIL) 20 MG TAB PO SCH (18:53)
[2023-02-19] MEDS: **hydrALAZINE** 10 MG TAB PO SCH (21:56)
[2023-02-19] MEDS: DIVALPROEX 500 MG TAB PO SCH (21:58)
[2023-02-19 22:00] VITALS: BP 120/58; TEMP 97.2; O2SAT 96
[2023-02-20] VITALS (7 sets, daily range): BP systolic 123–160; BP diastolic 72–78; TEMP 96.7–99; O2SAT 93–98
[2023-02-20] MEDS: ceFAZolin SOD 1 GM in D5W MINI-BAG PLUS 50 ML IV SCH ×3 (00:15→19:58)
[2023-02-20] MEDS: KETOROLAC 30 MG/ML 1ML VIAL IV SCH ×5 (00:15→23:58)
[2023-02-20] MEDS: RAMELTEON 8 MG TAB (ROZEREM) PO PRN ×2 (00:15→21:09)
[2023-02-20] MEDS: **hydrALAZINE** 10 MG TAB PO SCH ×4 (05:06→21:09)
[2023-02-20] MEDS: ISOSORBIDE DIN. (ISORDIL) 20 MG TAB PO SCH ×3 (05:07→19:59)
[2023-02-20] MEDS: NS 1,000 ML IV SCH ×3 (05:08→23:58)
[2023-02-20] MEDS ORDERED: D5W/0.45% SODIUM CHLORIDE 1,000 ML IV SCH (07:00)
[2023-02-20 07:13] LABS: BASO # 0.1 10^3/uL (0.0-0.2); BASO % 0.6 % (0.0-1.0); EOS # 0.6 10^3/uL (0.0-0.5); EOS % 7.7 % (0.0-3.0); HEMATOCRIT 38.3 % (42.0-52.0); HEMOGLOBIN 11.6 g/dl (13.5-17.5); LYMPH # 3.4 10^3/uL (1.5-5.0); LYMPH % 43.7 % (24.0-44.0); MEAN CORPUSCULAR HEMOGLOBIN 25.1 pg (27.0-33.0); MEAN CORPUSCULAR HGB CONC 30.3 g/dl (32.0-36.5); MEAN CORPUSCULAR VOLUME 82.9 fl (80.0-96.0); MONO # 0.6 10^3/uL (0.0-0.8); MONO % 8.2 % (2.0-8.0); NEUTROPHILS # 3.1 10^3/uL (1.5-8.5); NEUTROPHILS % 39.5 % (36.0-66.0); PLATELET COUNT, AUTOMATED 159 10^3/uL (150-450); RED BLOOD COUNT 4.62 10^6/uL (4.30-6.10); WHITE BLOOD COUNT 7.8 10^3/uL (4.0-10.0)
[2023-02-20 07:26] LABS: INR 1.03; PROTHROMBIN TIME 13.7 SECONDS (12.5-14.5)
[2023-02-20 07:38] LABS: BLOOD UREA NITROGEN 12 MG/DL (9-23); CARBON DIOXIDE LEVEL 28 MMOL/L (20-31); CHLORIDE LEVEL 108 MMOL/L (98-107); CREATININE FOR GFR 0.93 MG/DL (0.70-1.30); GLOMERULAR FILTRATION RATE > 60.0 (>56); GLUCOSE, FASTING 97 MG/DL (60-100); POTASSIUM SERUM 3.8 MMOL/L (3.5-5.1); SODIUM LEVEL 142 MMOL/L (136-145)
[2023-02-20 07:46] LABS: ERYTHROCYTE SEDIMENTATION RATE 13 mm/hr (0-20)
[2023-02-20 08:10] LABS: HIV 1&2 SCREEN NEGATIVE (NEGATIVE)
[2023-02-20] MEDS: METHADONE 10MG TAB PO SCH (10:48)
[2023-02-20] MEDS: PREGABALIN 100 MG CAP (LYRICA) PO SCH ×3 (10:48→21:09)
[2023-02-20] MEDS: DIVALPROEX 500 MG TAB PO SCH ×2 (10:49→21:09)
[2023-02-20] MEDS: NICOTINE 21MG/24HR 1 EA TRANSDERMAL TD SCH (10:50)
[2023-02-20 14:41] LABS: HEPATITIS C VIRUS ABY INDEX > 11.0 INDEX (<0.8)
[2023-02-21 04:00] VITALS: BP 131/63; TEMP 98.2; O2SAT 93
[2023-02-21] MEDS: **hydrALAZINE** 10 MG TAB PO SCH ×4 (04:15→20:20)
[2023-02-21] MEDS: ISOSORBIDE DIN. (ISORDIL) 20 MG TAB PO SCH ×3 (05:39→17:11)
[2023-02-21] MEDS: KETOROLAC 30 MG/ML 1ML VIAL IV SCH ×2 (05:39→12:27)
[2023-02-21 08:15] LABS: BASO % 0.1 % (0.0-1.0); EOS % 0.1 % (0.0-3.0); HEMATOCRIT 38.1 % (42.0-52.0); HEMOGLOBIN 11.6 g/dl (13.5-17.5); LYMPH # 1.1 10^3/uL (1.5-5.0); LYMPH % 13.5 % (24.0-44.0); MEAN CORPUSCULAR HEMOGLOBIN 25.8 pg (27.0-33.0); MEAN CORPUSCULAR HGB CONC 30.4 g/dl (32.0-36.5); MEAN CORPUSCULAR VOLUME 84.7 fl (80.0-96.0); MONO # 0.1 10^3/uL (0.0-0.8); MONO % 1.5 % (2.0-8.0); NEUTROPHILS # 6.9 10^3/uL (1.5-8.5); NEUTROPHILS % 84.4 % (36.0-66.0); PLATELET COUNT, AUTOMATED 160 10^3/uL (150-450); WHITE BLOOD COUNT 8.2 10^3/uL (4.0-10.0)
[2023-02-21 08:33] LABS: BLOOD UREA NITROGEN 8 MG/DL (9-23); CALCIUM LEVEL 8.4 MG/DL (8.5-10.1); CARBON DIOXIDE LEVEL 28 MMOL/L (20-31); CHLORIDE LEVEL 106 MMOL/L (98-107); GLOMERULAR FILTRATION RATE > 60.0 (>56); GLUCOSE, FASTING 175 MG/DL (60-100); POTASSIUM SERUM 4.5 MMOL/L (3.5-5.1); SODIUM LEVEL 143 MMOL/L (136-145)
[2023-02-21] MEDS: PREGABALIN 100 MG CAP (LYRICA) PO SCH ×3 (09:55→20:20)
[2023-02-21] MEDS: NICOTINE 21MG/24HR 1 EA TRANSDERMAL TD SCH (09:56)
[2023-02-21] MEDS: ceFAZolin SOD 1 GM in D5W MINI-BAG PLUS 50 ML IV SCH ×3 (09:57)
[2023-02-21] MEDS: DIVALPROEX 500 MG TAB PO SCH ×2 (09:57→20:20)
[2023-02-21] MEDS: METHADONE 10MG TAB PO SCH (10:00)
[2023-02-21] MEDS: NS 1,000 ML IV SCH (10:04)
[2023-02-21] MEDS ORDERED: VANCOMYCIN HCL 1,330 MG in IV FLUID PLACE HOLDER 1 EA IV SCH (12:55)
[2023-02-21] MEDS ORDERED: KETOROLAC 30 MG/ML 1ML VIAL IV PRN ×2 (13:15→14:18)
[2023-02-21 14:00] VITALS: BP 164/78; TEMP 98.6; O2SAT 93
[2023-02-21] MEDS ORDERED: VANCOMYCIN HCL 750 MG, VIAL MATE ADAPTER 1 EACH in D5W 250 ML IV ONE (14:00)
[2023-02-21] MEDS ORDERED: VANCOMYCIN HCL 1,000 MG, VIAL MATE ADAPTER 1 EACH in D5W 250 ML IV ONE (15:00)
[2023-02-21] MEDS: ACETAMINOPHEN 500 MG TAB PO SCH (17:10)
[2023-02-21 20:13] VITALS: BP 144/72; TEMP 99.1; O2SAT 94
[2023-02-21] MEDS: RAMELTEON 8 MG TAB (ROZEREM) PO PRN (20:20)
[2023-02-21] MEDS: BACTRIM 160MG/800MG DS TAB PO SCH (20:20)
[2023-02-21] MEDS: oxyCODONE 5MG TAB PO PRN (20:21)
[2023-02-22] MEDS ORDERED: VANCOMYCIN HCL 500 MG in D5W MINI-BAG PLUS 100 ML IV SCH ×2
[2023-02-22] MEDS: ACETAMINOPHEN 500 MG TAB PO SCH ×3 (00:59→11:50)
[2023-02-22] MEDS ORDERED: VANCOMYCIN HCL 750 MG, VIAL MATE ADAPTER 1 EACH in D5W 250 ML IV SCH (01:00)
[2023-02-22] MEDS: **hydrALAZINE** 10 MG TAB PO SCH ×3 (04:41→16:00)
[2023-02-22 05:59] VITALS: BP 147/85; TEMP 98.5; O2SAT 93
[2023-02-22] MEDS: ISOSORBIDE DIN. (ISORDIL) 20 MG TAB PO SCH ×2 (06:10→11:49)
[2023-02-22 06:17] LABS: BASO % 0.3 % (0.0-1.0); EOS # 0.1 10^3/uL (0.0-0.5); EOS % 0.7 % (0.0-3.0); HEMOGLOBIN 10.6 g/dl (13.5-17.5); LYMPH # 2.9 10^3/uL (1.5-5.0); LYMPH % 28.2 % (24.0-44.0); MEAN CORPUSCULAR HEMOGLOBIN 25.4 pg (27.0-33.0); MEAN CORPUSCULAR HGB CONC 30.3 g/dl (32.0-36.5); MEAN CORPUSCULAR VOLUME 83.7 fl (80.0-96.0); MONO # 0.7 10^3/uL (0.0-0.8); MONO % 7.2 % (2.0-8.0); NEUTROPHILS # 6.4 10^3/uL (1.5-8.5); NEUTROPHILS % 62.8 % (36.0-66.0); PLATELET COUNT, AUTOMATED 138 10^3/uL (150-450); RED BLOOD COUNT 4.18 10^6/uL (4.30-6.10); WHITE BLOOD COUNT 10.1 10^3/uL (4.0-10.0)
[2023-02-22 06:47] LABS: BLOOD UREA NITROGEN 15 MG/DL (9-23); CALCIUM LEVEL 8.2 MG/DL (8.5-10.1); CARBON DIOXIDE LEVEL 28 MMOL/L (20-31); CHLORIDE LEVEL 106 MMOL/L (98-107); CREATININE FOR GFR 0.89 MG/DL (0.70-1.30); GLOMERULAR FILTRATION RATE > 60.0 (>56); GLUCOSE, FASTING 109 MG/DL (60-100); POTASSIUM SERUM 4.1 MMOL/L (3.5-5.1); SODIUM LEVEL 142 MMOL/L (136-145)
[2023-02-22] MEDS ORDERED: LIDOCAINE 5% (LIDODERM) PATCH TD SCH (09:00)
[2023-02-22] MEDS ORDERED: ENOXAPARIN 40MG/0.4ML SYRINGE (J1650 PER 10MG) SC SCH (09:00)
[2023-02-22] MEDS: PREGABALIN 100 MG CAP (LYRICA) PO SCH ×2 (09:38→16:00)
[2023-02-22] MEDS: METHADONE 10MG TAB PO SCH (09:39)
[2023-02-22] MEDS: DIVALPROEX 500 MG TAB PO SCH (09:39)
[2023-02-22] MEDS: BACTRIM 160MG/800MG DS TAB PO SCH (09:39)
[2023-02-22] MEDS: NICOTINE 21MG/24HR 1 EA TRANSDERMAL TD SCH (09:57)
[2023-02-22] MEDS ORDERED: BACTDSTA PO (10:42)
[2023-02-22] MEDS ORDERED: ACET-683 PO (10:42)
[2023-02-22] MEDS ORDERED: PREG100CA PO (10:42)
[2023-02-22] MEDS ORDERED: LIDO5TD TD (10:42)
[2023-02-22] MEDS ORDERED: NICO21PAT TD (10:42)
[2023-02-22] MEDS ORDERED: DEPA1TAB3 PO (10:42)
[2023-02-22] MEDS ORDERED: IBUP-1114 PO (10:42)
[2023-02-22 11:49] VITALS: BP 142/64
[2023-02-22 14:30] VITALS: BP 145/74; TEMP 99.2; O2SAT 97
[2023-02-22] MEDS: oxyCODONE 5MG TAB PO PRN (15:03)
[2023-02-22 16:17] VITALS: BP 154/78; TEMP 98.2; O2SAT 96
[2023-02-22] MEDS ORDERED: LISI20TA33 PO (18:10)
[2023-02-23 07:07] LABS: HEPATITIS A IgG TOTAL Positive (Negative); HEPATITIS B CORE ANTIBODY IGG Negative (Negative)
[2023-02-23] MEDS ORDERED: LISI40TA4 PO (10:06)
[2023-02-23] MEDS ORDERED: ISOS20TA4 PO (10:06)
[2023-02-23] MEDS ORDERED: DEPA1TAB3 PO (10:06)
[2023-02-23] MEDS ORDERED: NARC1SPR NARES (10:06)
[2023-02-23] MEDS ORDERED: CHLO25TA PO (10:36)
[2023-02-23] MEDS ORDERED: [UNRECOGNIZED DRUG - CODE] EX (10:36)
[2023-02-23 23:10] LABS: HCV RNA (INTERNATIONAL UNITS) 10900000 IU/mL (.); HEPATITIS C QUANTITATION See Final Results IU/mL (.); HEPATITIS C VIRUS GENOTYPE 2b (.)
== END 2023-02-22 16:20 | DRG 383 ==
LOC: M MS5PR 14:53
PROVIDERS: ADMIT General Practice; ATTEND Student in an Organized Health Care Education/Training Program
PROC: 0HDLXZZ Extraction of Left Lower Leg Skin, External Approach (ICD-10-PCS; principal; 2023-02-21)
DX: L02.416 Cutaneous abscess of left lower limb (principal); E87.20 Acidosis, unspecified; R45.851 Suicidal ideations; F32.2 Major depressive disorder, single episode, severe without psychotic features; F11.24 Opioid dependence with opioid-induced mood disorder; G40.909 Epilepsy, unspecified, not intractable, without status epilepticus; I10 Essential (primary) hypertension; M47.892 Other spondylosis, cervical region; M51.26 Other intervertebral disc displacement, lumbar region; G89.29 Other chronic pain; N48.30 Priapism, unspecified; K21.9 Gastro-esophageal reflux disease without esophagitis; F41.9 Anxiety disorder, unspecified; G47.00 Insomnia, unspecified; F17.210 Nicotine dependence, cigarettes, uncomplicated; B18.2 Chronic viral hepatitis C; Z79.899 Other long term (current) drug therapy; Z98.1 Arthrodesis status; Z87.820 Personal history of traumatic brain injury; Z88.6 Allergy status to analgesic agent; B95.62 Methicillin resistant Staphylococcus aureus infection as the cause of diseases classified elsewhere; L03.116 Cellulitis of left lower limb

== ENCOUNTER 2023-02-22 14:55 | Inpatient (IN) | payer MEDICAID, OTHER ==
[~2023-02-22] VITALS: Ht 176.5 cm; Wt 88.3 kg
[~2023-02-22 14:55] MED LIST changes: +ACET-683 PO; +BACTDSTA PO; +IBUP-1114 PO; +LIDO5TD TD; +NICOTINE 21MG/24HR 1 EA TRANSDERMAL TD SCH; +PREG100CA PO
[2023-02-22] MEDS ORDERED: MAALOX 30 ML SUSP *UDC PO PRN (15:40)
[2023-02-22] MEDS ORDERED: traZODone 50 MG TAB PO PRN (15:40)
[2023-02-22] MEDS ORDERED: MOM 30ML SUSPENSION UDC PO PRN (15:40)
[2023-02-22] MEDS ORDERED: RAMELTEON 8 MG TAB (ROZEREM) PO PRN (15:50)
[2023-02-22] MEDS: PREGABALIN 100 MG CAP (LYRICA) PO SCH ×2 (16:43→20:53)
[2023-02-22] MEDS: ACETAMINOPHEN 500 MG TAB PO SCH ×2 (16:45→20:53)
[2023-02-22] MEDS: ISOSORBIDE DIN. (ISORDIL) 20 MG TAB PO SCH (17:53)
[2023-02-22] MEDS: **hydrALAZINE** 10 MG TAB PO SCH ×2 (17:56→23:31)
[2023-02-22 18:08] VITALS: BP 146/85; TEMP 97.2
[2023-02-22] MEDS ORDERED: LISI20TA33 PO (18:10)
[2023-02-22] MEDS: BACTRIM 160MG/800MG DS TAB PO SCH (20:53)
[2023-02-22] MEDS: DIVALPROEX 500 MG TAB PO SCH (20:53)
[2023-02-22] MEDS: oxyCODONE 5MG TAB PO PRN (23:31)
[2023-02-23] MEDS ORDERED: ONDANSETRON 4MG TAB PO PRN (01:15)
[2023-02-23 06:45] VITALS: BP 182/100; TEMP 97.5; O2SAT 97
[2023-02-23 06:50] VITALS: BP 182/100
[2023-02-23] MEDS: **hydrALAZINE** 10 MG TAB PO SCH (06:50)
[2023-02-23] MEDS: ISOSORBIDE DIN. (ISORDIL) 20 MG TAB PO SCH (06:50)
[2023-02-23] MEDS ORDERED: LIDOCAINE 5% (LIDODERM) PATCH TD SCH (09:00)
[2023-02-23] MEDS ORDERED: CHLORTHALIDONE 25 MG TAB PO SCH (09:00)
[2023-02-23] MEDS ORDERED: NICOTINE 21MG/24HR 1 EA TRANSDERMAL TD SCH (09:00)
[2023-02-23] MEDS ORDERED: ENOXAPARIN 40MG/0.4ML SYRINGE (J1650 PER 10MG) SC SCH (09:00)
[2023-02-23] MEDS ORDERED: lisinopriL 40MG TAB PO SCH (09:00)
[2023-02-23] MEDS ORDERED: METHADONE 10MG TAB PO SCH (09:00)
[2023-02-23 09:38] VITALS: BP 152/92
[2023-02-23] MEDS: DIVALPROEX 500 MG TAB PO SCH (09:48)
[2023-02-23] MEDS: PREGABALIN 100 MG CAP (LYRICA) PO SCH (09:48)
[2023-02-23] MEDS: BACTRIM 160MG/800MG DS TAB PO SCH (09:48)
[2023-02-23] MEDS: ACETAMINOPHEN 500 MG TAB PO SCH (09:49)
[2023-02-23] MEDS ORDERED: NARC1SPR NARES (10:06)
[2023-02-23] MEDS ORDERED: DEPA1TAB3 PO (10:06)
[2023-02-23] MEDS ORDERED: LISI40TA4 PO (10:06)
[2023-02-23] MEDS ORDERED: ISOS20TA4 PO (10:06)
[2023-02-23] MEDS ORDERED: [UNRECOGNIZED DRUG - CODE] EX (10:36)
[2023-02-23] MEDS ORDERED: CHLO25TA PO (10:36)
[2023-02-23] MEDS: oxyCODONE 5MG TAB PO PRN (12:44)
== END 2023-02-23 13:32 | disposition home or self-care (01) | DRG 773 ==
LOC: EEVIPCON 15:40 → M PSY 15:40
PROVIDERS: ADMIT Psychiatry & Neurology Psychiatry; ATTEND Student in an Organized Health Care Education/Training Program
DX: F15.14 Other stimulant abuse with stimulant-induced mood disorder (principal); G40.409 Other generalized epilepsy and epileptic syndromes, not intractable, without status epilepticus; I10 Essential (primary) hypertension; F12.10 Cannabis abuse, uncomplicated; F17.200 Nicotine dependence, unspecified, uncomplicated; Z79.899 Other long term (current) drug therapy; Z88.6 Allergy status to analgesic agent; M47.812 Spondylosis without myelopathy or radiculopathy, cervical region; G89.29 Other chronic pain; K21.9 Gastro-esophageal reflux disease without esophagitis; Z87.820 Personal history of traumatic brain injury; F11.24 Opioid dependence with opioid-induced mood disorder

== ENCOUNTER 2023-03-03 20:32 | Inpatient (IN) | payer MEDICAID ==
[~2023-03-03] VITALS: Ht 175.3 cm; Wt 83.6 kg
[~2023-03-03 20:32] MED LIST changes: +CHLO25TA PO; +ISOS20TA4 PO; +LISI40TA4 PO; +NARC1SPR NARES; -NICOTINE 21MG/24HR 1 EA TRANSDERMAL TD SCH; +[UNRECOGNIZED DRUG - CODE] EX
[2023-03-03 22:07] LABS: HEMATOCRIT 38.3 % (42.0-52.0); HEMOGLOBIN 12.3 g/dl (13.5-17.5); MEAN CORPUSCULAR HEMOGLOBIN 25.6 pg (27.0-33.0); MEAN CORPUSCULAR HGB CONC 32.1 g/dl (32.0-36.5); MEAN CORPUSCULAR VOLUME 79.6 fl (80.0-96.0); PLATELET COUNT, AUTOMATED 203 10^3/uL (150-450); RED BLOOD COUNT 4.81 10^6/uL (4.30-6.10)
[2023-03-03 22:08] LABS: BARBITURATES URINE NEGATIVE (NEGATIVE); BENZODIAZEPINES URINE NEGATIVE (NEGATIVE); COCAINE METABOLITE URINE NEGATIVE (NEGATIVE); PHENCYCLIDINE URINE NEGATIVE (NEGATIVE)
[2023-03-03 22:09] LABS: OPIATES URINE NEGATIVE (NEGATIVE)
[2023-03-03 22:11] LABS: AMPHETAMINES LEVEL URINE POSITIVE (NEGATIVE); CANNABINOIDS URINE POSITIVE (NEGATIVE); ETHYL ALCOHOL (ETHANOL) < 0.003 % (0.000-0.010); METHADONE URINE POSITIVE (NEGATIVE)
[2023-03-03 22:12] LABS: ACETAMINOPHEN LEVEL < 2.0 UG/ML (10.0-20.0)
[2023-03-03 22:13] LABS: ALBUMIN 3.7 G/DL (3.2-5.2); ALKALINE PHOSPHATASE 90 U/L (46-116); ALT/SGPT 30 U/L (7.0-40); AST/SGOT 28 U/L (<34); BILIRUBIN,DIRECT 0.2 MG/DL (<0.4); BILIRUBIN,TOTAL 0.5 MG/DL (0.3-1.2); BLOOD UREA NITROGEN 18 MG/DL (9-23); CALCIUM LEVEL 8.4 MG/DL (8.5-10.1); CARBON DIOXIDE LEVEL 25 MMOL/L (20-31); CHLORIDE LEVEL 108 MMOL/L (98-107); CREATININE FOR GFR 1.25 MG/DL (0.70-1.30); GLOMERULAR FILTRATION RATE > 60.0 (>56); GLUCOSE, FASTING 96 MG/DL (60-100); POTASSIUM SERUM 3.9 MMOL/L (3.5-5.1); SALICYLATE LEVEL < 3.0 MG/DL (<30); SODIUM LEVEL 140 MMOL/L (136-145); TOTAL PROTEIN 6.9 G/DL (5.7-8.2)
[2023-03-03] MEDS ORDERED: CHLO125TA PO (22:44)
[2023-03-03] MEDS ORDERED: LISI40TA4 PO (22:44)
[2023-03-03] MEDS ORDERED: DIVA500T94 PO (22:44)
[2023-03-03] MEDS ORDERED: ACET-683 PO (22:44)
[2023-03-03] MEDS ORDERED: PREG100CA PO (22:45)
[2023-03-03] MEDS ORDERED: HOME MED LIST COMPLETE! XX SCH (22:50)
[2023-03-04] MEDS: LIDOCAINE 5% (LIDODERM) PATCH TD SCH (09:00)
[2023-03-04] MEDS ORDERED: LORazepam 1 MG TAB PO PRN (14:20)
[2023-03-04] MEDS ORDERED: traZODone 50 MG TAB PO PRN (14:20)
[2023-03-04] MEDS ORDERED: MAALOX 30 ML SUSP *UDC PO PRN (14:20)
[2023-03-04] MEDS ORDERED: MOM 30ML SUSPENSION UDC PO PRN (14:20)
[2023-03-04] MEDS ORDERED: COMBIVENT RESPIMAT 100-20MCG INHALER 4GM INH PRN (14:20)
[2023-03-04] MEDS ORDERED: OLANZapine ORAL DISINTEGRATING TAB 5MG PO PRN (14:20)
[2023-03-04 15:30] VITALS: BP 154/90; TEMP 98.1; O2SAT 97
[2023-03-04] MEDS: PREGABALIN 100 MG CAP (LYRICA) PO SCH ×2 (16:30→21:43)
[2023-03-04] MEDS: METHADONE 10MG TAB PO SCH (16:31)
[2023-03-04] MEDS: ISOSORBIDE DIN. (ISORDIL) 20 MG TAB PO SCH (16:31)
[2023-03-04] MEDS: lisinopriL 40MG TAB PO SCH (16:31)
[2023-03-04] MEDS: DIVALPROEX 500 MG TAB PO SCH (21:43)
[2023-03-05 06:40] VITALS: BP 163/72; TEMP 98.4; O2SAT 97
[2023-03-05] MEDS: ISOSORBIDE DIN. (ISORDIL) 20 MG TAB PO SCH ×3 (07:01→17:23)
[2023-03-05] MEDS: LIDOCAINE 5% (LIDODERM) PATCH TD SCH (08:23)
[2023-03-05] MEDS: ACETAMINOPHEN TAB 650MG DOSE (2X325MG) PO PRN (08:26)
[2023-03-05] MEDS: DIVALPROEX 500 MG TAB PO SCH ×2 (08:27→22:28)
[2023-03-05] MEDS: CHLORTHALIDONE 25 MG TAB PO SCH (08:27)
[2023-03-05] MEDS: PREGABALIN 100 MG CAP (LYRICA) PO SCH ×3 (08:27→22:28)
[2023-03-05] MEDS: lisinopriL 40MG TAB PO SCH (08:27)
[2023-03-05] MEDS: METHADONE 10MG TAB PO SCH (08:27)
[2023-03-05] MEDS: FAMOTIDINE 20 MG TAB PO SCH (10:06)
[2023-03-05] MEDS: NICOTINE 21MG/24HR 1 EA TRANSDERMAL TD SCH (10:06)
[2023-03-05] MEDS ORDERED: RIZATRIPTAN BENZOATE 10 MG TAB PO ONE (11:00)
[2023-03-05 12:26] VITALS: BP 129/78; TEMP 98.8; O2SAT 98
[2023-03-05] MEDS ORDERED: METOCLOPRAMIDE 10MG TAB PO ONE (13:00)
[2023-03-05] MEDS ORDERED: PERCOCET 5MG/325MG TAB PO ONE (13:00)
[2023-03-05] MEDS ORDERED: diphenhydrAMINE 25MG CAP PO ONE (13:00)
[2023-03-05 14:00] LABS: C REACTIVE PROTEIN QUANTITATIV < 0.40 MG/DL (<1.0)
[2023-03-05 14:08] LABS: PROCALCITONIN <0.04 ng/ml
[2023-03-05 16:22] VITALS: BP 107/56; TEMP 98; O2SAT 94
[2023-03-05 16:33] VITALS: BP 110/70
[2023-03-06] MEDS: ISOSORBIDE DIN. (ISORDIL) 20 MG TAB PO SCH ×3 (06:29→17:52)
[2023-03-06 06:36] VITALS: BP 130/92; TEMP 97.7; O2SAT 100
[2023-03-06] MEDS: METHADONE 10MG TAB PO SCH (08:45)
[2023-03-06] MEDS: CHLORTHALIDONE 25 MG TAB PO SCH (08:45)
[2023-03-06] MEDS: FAMOTIDINE 20 MG TAB PO SCH (08:45)
[2023-03-06] MEDS: lisinopriL 40MG TAB PO SCH (08:45)
[2023-03-06] MEDS: PREGABALIN 100 MG CAP (LYRICA) PO SCH ×3 (08:45→21:00)
[2023-03-06] MEDS: DIVALPROEX 500 MG TAB PO SCH ×2 (08:45→21:00)
[2023-03-06] MEDS: ACETAMINOPHEN TAB 650MG DOSE (2X325MG) PO PRN (08:46)
[2023-03-06] MEDS: NICOTINE 21MG/24HR 1 EA TRANSDERMAL TD SCH (08:46)
[2023-03-06] MEDS: LIDOCAINE 5% (LIDODERM) PATCH TD SCH (08:46)
[2023-03-06] MEDS: ESCITALOPRAM OXALATE 5MG TABLET (LEXAPRO) PO SCH (10:26)
[2023-03-06 18:00] VITALS: BP 152/84; TEMP 97.5
[2023-03-06] MEDS: diphenhydrAMINE 25MG CAP PO PRN (21:00)
[2023-03-07] MEDS: ACETAMINOPHEN TAB 650MG DOSE (2X325MG) PO PRN ×2 (06:19→21:34)
[2023-03-07] MEDS: ISOSORBIDE DIN. (ISORDIL) 20 MG TAB PO SCH ×3 (06:20→16:15)
[2023-03-07 06:25] VITALS: BP 160/89; TEMP 99.2; O2SAT 95
[2023-03-07] MEDS ORDERED: ONDANSETRON 4MG TAB PO PRN (08:35)
[2023-03-07] MEDS: lisinopriL 40MG TAB PO SCH (09:00)
[2023-03-07] MEDS: PREGABALIN 100 MG CAP (LYRICA) PO SCH ×3 (09:00→21:33)
[2023-03-07] MEDS: CHLORTHALIDONE 25 MG TAB PO SCH (09:00)
[2023-03-07] MEDS: FAMOTIDINE 20 MG TAB PO SCH (09:00)
[2023-03-07] MEDS: ESCITALOPRAM OXALATE 5MG TABLET (LEXAPRO) PO SCH (09:01)
[2023-03-07] MEDS: METHADONE 10MG TAB PO SCH (09:01)
[2023-03-07] MEDS: DIVALPROEX 500 MG TAB PO SCH ×2 (09:01→21:33)
[2023-03-07] MEDS: LIDOCAINE 5% (LIDODERM) PATCH TD SCH (09:02)
[2023-03-07] MEDS: NICOTINE 21MG/24HR 1 EA TRANSDERMAL TD SCH (09:03)
[2023-03-07] MEDS: cloNIDine 0.05MG 1/2 TABLET PO SCH ×2 (10:54→21:33)
[2023-03-07 16:14] VITALS: BP 133/87; TEMP 97.6
[2023-03-07 17:57] VITALS: BP 133/87; TEMP 98
[2023-03-07] MEDS: diphenhydrAMINE 25MG CAP PO PRN (21:33)
[2023-03-08 06:05] VITALS: BP 138/81; TEMP 97.5; O2SAT 100
[2023-03-08] MEDS: ISOSORBIDE DIN. (ISORDIL) 20 MG TAB PO SCH ×3 (06:14→17:03)
[2023-03-08 08:20] VITALS: BP 114/68
[2023-03-08] MEDS: ESCITALOPRAM OXALATE 5MG TABLET (LEXAPRO) PO SCH (08:20)
[2023-03-08] MEDS: FAMOTIDINE 20 MG TAB PO SCH (08:20)
[2023-03-08] MEDS: cloNIDine 0.05MG 1/2 TABLET PO SCH ×2 (08:21→20:44)
[2023-03-08] MEDS: PREGABALIN 100 MG CAP (LYRICA) PO SCH ×3 (08:21→20:41)
[2023-03-08] MEDS: lisinopriL 40MG TAB PO SCH (08:21)
[2023-03-08] MEDS: CHLORTHALIDONE 25 MG TAB PO SCH (08:21)
[2023-03-08] MEDS: METHADONE 10MG TAB PO SCH (08:22)
[2023-03-08] MEDS: LIDOCAINE 5% (LIDODERM) PATCH TD SCH (08:22)
[2023-03-08] MEDS: DIVALPROEX 500 MG TAB PO SCH ×2 (08:22→20:41)
[2023-03-08] MEDS: NICOTINE 21MG/24HR 1 EA TRANSDERMAL TD SCH (08:22)
[2023-03-08 18:23] VITALS: BP 139/85; TEMP 97.5
[2023-03-08] MEDS: diphenhydrAMINE 25MG CAP PO PRN (20:41)
[2023-03-09 06:29] VITALS: BP 149/85; TEMP 98.1; O2SAT 95
[2023-03-09] MEDS: ISOSORBIDE DIN. (ISORDIL) 20 MG TAB PO SCH ×3 (06:34→17:01)
[2023-03-09 09:00] VITALS: BP 117/76
[2023-03-09] MEDS: PREGABALIN 100 MG CAP (LYRICA) PO SCH ×3 (09:04→20:30)
[2023-03-09] MEDS: FAMOTIDINE 20 MG TAB PO SCH (09:05)
[2023-03-09] MEDS: CHLORTHALIDONE 25 MG TAB PO SCH (09:05)
[2023-03-09] MEDS: ESCITALOPRAM OXALATE 5MG TABLET (LEXAPRO) PO SCH (09:05)
[2023-03-09] MEDS: METHADONE 10MG TAB PO SCH (09:05)
[2023-03-09] MEDS: cloNIDine 0.05MG 1/2 TABLET PO SCH ×2 (09:05→20:32)
[2023-03-09] MEDS: DIVALPROEX 500 MG TAB PO SCH ×2 (09:05→20:30)
[2023-03-09] MEDS: lisinopriL 40MG TAB PO SCH (09:05)
[2023-03-09] MEDS: LIDOCAINE 5% (LIDODERM) PATCH TD SCH (09:06)
[2023-03-09] MEDS: NICOTINE 21MG/24HR 1 EA TRANSDERMAL TD SCH (09:06)
[2023-03-09 18:52] VITALS: BP 131/81; TEMP 97.3
[2023-03-10] MEDS: ISOSORBIDE DIN. (ISORDIL) 20 MG TAB PO SCH ×3 (06:34→17:04)
[2023-03-10 06:39] VITALS: BP 125/58; TEMP 98.5; O2SAT 97
[2023-03-10 09:07] VITALS: BP 106/57
[2023-03-10] MEDS: PREGABALIN 100 MG CAP (LYRICA) PO SCH ×3 (09:08→21:24)
[2023-03-10] MEDS: ESCITALOPRAM OXALATE 5MG TABLET (LEXAPRO) PO SCH (09:08)
[2023-03-10] MEDS: FAMOTIDINE 20 MG TAB PO SCH (09:08)
[2023-03-10] MEDS: METHADONE 10MG TAB PO SCH (09:08)
[2023-03-10] MEDS: DIVALPROEX 500 MG TAB PO SCH ×2 (09:09→21:24)
[2023-03-10] MEDS: LIDOCAINE 5% (LIDODERM) PATCH TD SCH (09:09)
[2023-03-10] MEDS: CHLORTHALIDONE 25 MG TAB PO SCH (09:09)
[2023-03-10] MEDS: NICOTINE 21MG/24HR 1 EA TRANSDERMAL TD SCH (09:10)
[2023-03-10 10:00] VITALS: BP 126/71
[2023-03-10] MEDS: cloNIDine 0.05MG 1/2 TABLET PO SCH ×2 (10:00→21:23)
[2023-03-10] MEDS: lisinopriL 40MG TAB PO SCH (10:00)
[2023-03-10 18:49] VITALS: BP 146/77; TEMP 97.1
[2023-03-11 06:26] VITALS: BP 124/70; TEMP 97.9; O2SAT 98
[2023-03-11] MEDS: ISOSORBIDE DIN. (ISORDIL) 20 MG TAB PO SCH ×3 (06:39→16:07)
[2023-03-11] MEDS ORDERED: ESCITALOPRAM OXALATE 10 MG TAB (LEXAPRO) PO SCH (09:00)
[2023-03-11] MEDS: METHADONE 10MG TAB PO SCH (09:09)
[2023-03-11] MEDS: DIVALPROEX 500 MG TAB PO SCH ×2 (09:09→21:33)
[2023-03-11] MEDS: lisinopriL 40MG TAB PO SCH (09:10)
[2023-03-11] MEDS: PREGABALIN 100 MG CAP (LYRICA) PO SCH ×3 (09:10→21:32)
[2023-03-11] MEDS: cloNIDine 0.05MG 1/2 TABLET PO SCH ×2 (09:11→21:32)
[2023-03-11] MEDS: FAMOTIDINE 20 MG TAB PO SCH (09:11)
[2023-03-11] MEDS: CHLORTHALIDONE 25 MG TAB PO SCH (09:11)
[2023-03-11] MEDS: LIDOCAINE 5% (LIDODERM) PATCH TD SCH (09:12)
[2023-03-11] MEDS: NICOTINE 21MG/24HR 1 EA TRANSDERMAL TD SCH (09:13)
[2023-03-11] MEDS: ACETAMINOPHEN TAB 650MG DOSE (2X325MG) PO PRN (16:07)
[2023-03-11 18:00] VITALS: BP 125/58; TEMP 97.9; O2SAT 97
[2023-03-11] MEDS ORDERED: LEXA1TAB PO (19:59)
[2023-03-11 21:32] VITALS: BP 147/67
[2023-03-11] MEDS: diphenhydrAMINE 25MG CAP PO PRN (21:48)
[2023-03-12] MEDS ORDERED: ceFAZolin 2 GM/D5W 50 ML IV BAG IV ONE (18:06)
[2023-03-12 18:35] VITALS: BP 153/72; TEMP 98.6; O2SAT 97
== END 2023-03-11 22:02 | disposition short-term general hospital (02) | DRG 773 ==
LOC: M ED 20:32 → M ED INP 03-04 14:17 → M PSY 03-04 16:01
PROVIDERS: ADMIT Psychiatry & Neurology Psychiatry; ATTEND Student in an Organized Health Care Education/Training Program
DX: F15.14 Other stimulant abuse with stimulant-induced mood disorder (principal); R45.851 Suicidal ideations; F12.10 Cannabis abuse, uncomplicated; F17.200 Nicotine dependence, unspecified, uncomplicated; G40.909 Epilepsy, unspecified, not intractable, without status epilepticus; F11.14 Opioid abuse with opioid-induced mood disorder; G89.29 Other chronic pain; I10 Essential (primary) hypertension; B19.20 Unspecified viral hepatitis C without hepatic coma; L02.412 Cutaneous abscess of left axilla; Z79.899 Other long term (current) drug therapy; Z88.6 Allergy status to analgesic agent; Z87.820 Personal history of traumatic brain injury

== ENCOUNTER 2023-03-11 20:20 | Observation (INO) | payer MEDICAID ==
[~2023-03-11] VITALS: Ht 175.3 cm; Wt 93.4 kg
[~2023-03-11 20:20] MED LIST changes: +CHLO125TA PO; +LEXA1TAB PO
[2023-03-11 22:00] VITALS: BP 119/66; TEMP 98.4; O2SAT 95
[2023-03-11] MEDS ORDERED: HOME MED LIST COMPLETE! XX SCH (23:00)
[2023-03-11] MEDS ORDERED: COMBIVENT RESPIMAT 100-20MCG INHALER 4GM INH PRN (23:10)
[2023-03-11] MEDS ORDERED: NALOXONE INJ 0.4MG/1ML VIAL IV PRN (23:15)
[2023-03-11] MEDS ORDERED: OLANZapine 5 MG TAB PO PRN (23:20)
[2023-03-12] VITALS (10 sets, daily range): BP systolic 122–151; BP diastolic 70–89; TEMP 97.5–98.6; O2SAT 92–95
[2023-03-12] MEDS: NS 1,000 ML IV SCH ×2 (00:02→09:14)
[2023-03-12] MEDS: HEPARIN SOD (PORCINE) 5000UNITS/ML 1ML VIAL/SYRINGE SQ SCH ×3 (06:00→20:22)
[2023-03-12] MEDS: ISOSORBIDE DIN. (ISORDIL) 20 MG TAB PO SCH ×3 (06:11→17:00)
[2023-03-12] MEDS ORDERED: CHLORTHALIDONE 25 MG TAB PO SCH (09:00)
[2023-03-12] MEDS ORDERED: lisinopriL 40MG TAB PO SCH (09:00)
[2023-03-12] MEDS ORDERED: NICOTINE 14 MG/24 HR TRANSDERMAL TD PRN (09:00)
[2023-03-12] MEDS: PREGABALIN 100 MG CAP (LYRICA) PO SCH ×3 (09:19→20:22)
[2023-03-12] MEDS: METHADONE 10MG TAB PO SCH (09:20)
[2023-03-12] MEDS: ESCITALOPRAM OXALATE 10 MG TAB (LEXAPRO) PO SCH (09:20)
[2023-03-12] MEDS: DIVALPROEX 500 MG TAB PO SCH ×2 (09:20→20:22)
[2023-03-12] MEDS: cloNIDine 0.05MG 1/2 TABLET PO SCH ×2 (09:21→20:22)
[2023-03-12] MEDS ORDERED: propofoL 200 MG/20 ML VIAL As Ordered ONE (16:02)
[2023-03-12] MEDS ORDERED: LIDOCAINE 2% 100MG/5ML SDV (FOR ANES.) As Ordered ONE (16:03)
[2023-03-12] MEDS ORDERED: ONDANSETRON 4MG 2ML VIAL As Ordered ONE (16:04)
[2023-03-12] MEDS ORDERED: fentaNYL 100 MCG/2 ML INJECTION As Ordered ONE (16:04)
[2023-03-12] MEDS ORDERED: MIDAZOLAM INJ 2MG/2ML VIAL As Ordered ONE (16:04)
[2023-03-12] MEDS ORDERED: TRANEXAMIC ACID 100 MG/ML 10ML VIAL As Ordered ONE (17:03)
[2023-03-12] MEDS ORDERED: oxyCODONE 5MG TAB PO PRN (17:10)
[2023-03-12] MEDS ORDERED: fentaNYL 100 MCG/2 ML INJECTION IV PRN (17:10)
[2023-03-12] MEDS ORDERED: ONDANSETRON 4MG 2ML VIAL IV PRN (17:10)
[2023-03-12] MEDS ORDERED: LR 1,000 ML IV SCH ×2 (17:10→18:55)
[2023-03-12] MEDS ORDERED: ceFAZolin 2 GM/D5W 50 ML IV BAG As Ordered ONE (17:15)
[2023-03-12] MEDS ORDERED: TRANEXAMIC ACID 100 MG/ML 10ML VIAL ONE (17:15)
[2023-03-12] MEDS ORDERED: ceFAZolin 2 GM/D5W 50 ML IV BAG ONE (17:15)
[2023-03-12] MEDS: HYDROMORPHONE HCL 0.5 MG/ 0.5 ML SYRINGE IV PRN ×2 (18:18→18:29)
[2023-03-12] MEDS ORDERED: carisoprodoL 350 MG TAB PO PRN (21:20)
[2023-03-12] MEDS: KETOROLAC 30 MG/ML 1ML VIAL IV PRN (21:39)
[2023-03-12] MEDS: traZODone 50 MG TAB PO PRN (21:39)
[2023-03-13] VITALS (9 sets, daily range): BP systolic 107–155; BP diastolic 56–83; TEMP 96.6–98.5; O2SAT 93–95
[2023-03-13] MEDS ORDERED: VANCOMYCIN HCL 1,000 MG, VIAL MATE ADAPTER 1 EACH in D5W 250 ML IV ONE ×2 (01:00→02:00)
[2023-03-13 06:10] LABS: HEMATOCRIT 38.1 % (42.0-52.0); HEMOGLOBIN 11.7 g/dl (13.5-17.5); LYMPH % 22.1 % (24.0-44.0); MEAN CORPUSCULAR HEMOGLOBIN 25.3 pg (27.0-33.0); MEAN CORPUSCULAR HGB CONC 30.7 g/dl (32.0-36.5); MEAN CORPUSCULAR VOLUME 82.5 fl (80.0-96.0); MONO # 0.1 10^3/uL (0.0-0.8); NEUTROPHILS # 3.2 10^3/uL (1.5-8.5); NEUTROPHILS % 74.2 % (36.0-66.0); PLATELET COUNT, AUTOMATED 141 10^3/uL (150-450); RED BLOOD COUNT 4.62 10^6/uL (4.30-6.10); WHITE BLOOD COUNT 4.3 10^3/uL (4.0-10.0)
[2023-03-13 06:19] LABS: BLOOD UREA NITROGEN 19 MG/DL (9-23); CALCIUM LEVEL 8.8 MG/DL (8.5-10.1); CARBON DIOXIDE LEVEL 33 MMOL/L (20-31); CHLORIDE LEVEL 101 MMOL/L (98-107); CREATININE FOR GFR 0.86 MG/DL (0.70-1.30); GLOMERULAR FILTRATION RATE > 60.0 (>56); GLUCOSE, FASTING 119 MG/DL (60-100); POTASSIUM SERUM 4.1 MMOL/L (3.5-5.1); SODIUM LEVEL 139 MMOL/L (136-145)
[2023-03-13] MEDS: ISOSORBIDE DIN. (ISORDIL) 20 MG TAB PO SCH ×3 (06:30→17:00)
[2023-03-13] MEDS: HEPARIN SOD (PORCINE) 5000UNITS/ML 1ML VIAL/SYRINGE SQ SCH ×3 (06:31→21:52)
[2023-03-13] MEDS: ESCITALOPRAM OXALATE 10 MG TAB (LEXAPRO) PO SCH (08:38)
[2023-03-13] MEDS: PREGABALIN 100 MG CAP (LYRICA) PO SCH ×3 (08:38→21:51)
[2023-03-13] MEDS: PANTOPRAZOLE 40MG TAB (PROTONIX) PO SCH (08:38)
[2023-03-13] MEDS: DIVALPROEX 500 MG TAB PO SCH ×2 (08:39→21:51)
[2023-03-13] MEDS: METHADONE 10MG TAB PO SCH (08:39)
[2023-03-13] MEDS: cloNIDine 0.05MG 1/2 TABLET PO SCH ×2 (08:39→21:51)
[2023-03-13] MEDS ORDERED: VANCOMYCIN HCL 1,000 MG, VIAL MATE ADAPTER 1 EACH in D5W 250 ML IV SCH (10:00)
[2023-03-13] MEDS: KETOROLAC 30 MG/ML 1ML VIAL IV PRN (10:08)
[2023-03-13] MEDS: VANCOMYCIN HCL 750 MG, VIAL MATE ADAPTER 1 EACH in D5W 250 ML IV SCH ×2 (10:09→17:13)
[2023-03-14] MEDS: VANCOMYCIN HCL 750 MG, VIAL MATE ADAPTER 1 EACH in D5W 250 ML IV SCH ×3 (01:55→17:18)
[2023-03-14] MEDS: HEPARIN SOD (PORCINE) 5000UNITS/ML 1ML VIAL/SYRINGE SQ SCH ×2 (05:11→16:40)
[2023-03-14 05:40] LABS: BASO % 0.4 % (0.0-1.0); EOS # 0.2 10^3/uL (0.0-0.5); EOS % 1.8 % (0.0-3.0); HEMATOCRIT 36.2 % (42.0-52.0); HEMOGLOBIN 11.1 g/dl (13.5-17.5); LYMPH # 2.9 10^3/uL (1.5-5.0); LYMPH % 34.1 % (24.0-44.0); MEAN CORPUSCULAR HEMOGLOBIN 25.6 pg (27.0-33.0); MEAN CORPUSCULAR HGB CONC 30.7 g/dl (32.0-36.5); MEAN CORPUSCULAR VOLUME 83.4 fl (80.0-96.0); MONO # 0.7 10^3/uL (0.0-0.8); MONO % 8.4 % (2.0-8.0); NEUTROPHILS # 4.6 10^3/uL (1.5-8.5); NEUTROPHILS % 54.9 % (36.0-66.0); PLATELET COUNT, AUTOMATED 111 10^3/uL (150-450); RED BLOOD COUNT 4.34 10^6/uL (4.30-6.10); WHITE BLOOD COUNT 8.4 10^3/uL (4.0-10.0)
[2023-03-14 06:00] VITALS: BP 142/84; TEMP 98; O2SAT 96
[2023-03-14 06:00] LABS: BLOOD UREA NITROGEN 21 MG/DL (9-23); CARBON DIOXIDE LEVEL 35 MMOL/L (20-31); CHLORIDE LEVEL 104 MMOL/L (98-107); CREATININE FOR GFR 0.87 MG/DL (0.70-1.30); GLOMERULAR FILTRATION RATE > 60.0 (>56); GLUCOSE, FASTING 124 MG/DL (60-100); POTASSIUM SERUM 3.8 MMOL/L (3.5-5.1); SODIUM LEVEL 142 MMOL/L (136-145)
[2023-03-14] MEDS: DIVALPROEX 500 MG TAB PO SCH ×2 (08:18→20:58)
[2023-03-14] MEDS: METHADONE 10MG TAB PO SCH (08:18)
[2023-03-14] MEDS: PANTOPRAZOLE 40MG TAB (PROTONIX) PO SCH (08:18)
[2023-03-14] MEDS: ESCITALOPRAM OXALATE 10 MG TAB (LEXAPRO) PO SCH (08:18)
[2023-03-14] MEDS: PREGABALIN 100 MG CAP (LYRICA) PO SCH ×3 (08:18→20:58)
[2023-03-14] MEDS: ISOSORBIDE DIN. (ISORDIL) 20 MG TAB PO SCH ×3 (08:19→17:18)
[2023-03-14] MEDS: cloNIDine 0.05MG 1/2 TABLET PO SCH ×2 (08:19→20:58)
[2023-03-14] MEDS: lisinopriL 40MG TAB PO SCH (08:20)
[2023-03-14] MEDS ORDERED: ACETAMINOPHEN 500 MG TAB PO PRN (12:30)
[2023-03-14 14:00] VITALS: BP 137/65; TEMP 97.5; O2SAT 94
[2023-03-14 16:37] VITALS: BP 132/68
[2023-03-14] MEDS: traZODone 50 MG TAB PO PRN (20:57)
[2023-03-14 21:00] VITALS: BP 128/71; TEMP 98.8; O2SAT 95
[2023-03-15] MEDS: VANCOMYCIN HCL 750 MG, VIAL MATE ADAPTER 1 EACH in D5W 250 ML IV SCH ×3 (02:31→17:17)
[2023-03-15 05:20] VITALS: BP 161/87; TEMP 97.5; O2SAT 96
[2023-03-15] MEDS: HEPARIN SOD (PORCINE) 5000UNITS/ML 1ML VIAL/SYRINGE SQ SCH ×2 (05:40→18:00)
[2023-03-15 06:09] LABS: BASO # 0.1 10^3/uL (0.0-0.2); BASO % 0.8 % (0.0-1.0); EOS # 0.3 10^3/uL (0.0-0.5); EOS % 4.1 % (0.0-3.0); HEMATOCRIT 36.8 % (42.0-52.0); LYMPH # 3.7 10^3/uL (1.5-5.0); LYMPH % 58.2 % (24.0-44.0); MEAN CORPUSCULAR HEMOGLOBIN 25.2 pg (27.0-33.0); MEAN CORPUSCULAR HGB CONC 29.9 g/dl (32.0-36.5); MEAN CORPUSCULAR VOLUME 84.2 fl (80.0-96.0); MONO # 0.5 10^3/uL (0.0-0.8); MONO % 7.3 % (2.0-8.0); NEUTROPHILS # 1.8 10^3/uL (1.5-8.5); NEUTROPHILS % 29.1 % (36.0-66.0); PLATELET COUNT, AUTOMATED 114 10^3/uL (150-450); RED BLOOD COUNT 4.37 10^6/uL (4.30-6.10); WHITE BLOOD COUNT 6.3 10^3/uL (4.0-10.0)
[2023-03-15 06:38] LABS: BLOOD UREA NITROGEN 16 MG/DL (9-23); CALCIUM LEVEL 8.4 MG/DL (8.5-10.1); CARBON DIOXIDE LEVEL 33 MMOL/L (20-31); CHLORIDE LEVEL 104 MMOL/L (98-107); CREATININE FOR GFR 0.79 MG/DL (0.70-1.30); GLOMERULAR FILTRATION RATE > 60.0 (>56); GLUCOSE, FASTING 96 MG/DL (60-100); POTASSIUM SERUM 3.8 MMOL/L (3.5-5.1); SODIUM LEVEL 142 MMOL/L (136-145)
[2023-03-15] MEDS: ISOSORBIDE DIN. (ISORDIL) 20 MG TAB PO SCH ×3 (07:25→16:04)
[2023-03-15] MEDS: ESCITALOPRAM OXALATE 10 MG TAB (LEXAPRO) PO SCH (08:32)
[2023-03-15] MEDS: DIVALPROEX 500 MG TAB PO SCH ×2 (08:32→23:30)
[2023-03-15] MEDS: lisinopriL 40MG TAB PO SCH (08:33)
[2023-03-15] MEDS: PANTOPRAZOLE 40MG TAB (PROTONIX) PO SCH (08:33)
[2023-03-15] MEDS: METHADONE 10MG TAB PO SCH (08:33)
[2023-03-15] MEDS: cloNIDine 0.05MG 1/2 TABLET PO SCH ×2 (08:35→23:30)
[2023-03-15] MEDS: PREGABALIN 100 MG CAP (LYRICA) PO SCH ×3 (08:35→23:30)
[2023-03-15 14:00] VITALS: BP 150/82; TEMP 98.2; O2SAT 94
[2023-03-15] MEDS ORDERED: propofoL 200 MG/20 ML VIAL As Ordered ONE (20:19)
[2023-03-15] MEDS ORDERED: LIDOCAINE 2% 100MG/5ML SDV (FOR ANES.) As Ordered ONE (20:19)
[2023-03-15] MEDS ORDERED: fentaNYL 100 MCG/2 ML INJECTION As Ordered ONE (20:19)
[2023-03-15] MEDS ORDERED: MIDAZOLAM INJ 2MG/2ML VIAL As Ordered ONE (20:20)
[2023-03-15] MEDS ORDERED: KETOROLAC 60MG 2ML VIAL As Ordered ONE (21:00)
[2023-03-15] MEDS ORDERED: ONDANSETRON 4MG 2ML VIAL As Ordered ONE (21:00)
[2023-03-15] MEDS ORDERED: MORPHINE 2 MG/ML 1ML VIAL IV PRN (21:25)
[2023-03-15] MEDS ORDERED: ONDANSETRON 4MG 2ML VIAL IV PRN (21:25)
[2023-03-15] MEDS ORDERED: oxyCODONE 5MG TAB PO PRN (21:25)
[2023-03-15] MEDS ORDERED: fentaNYL 100 MCG/2 ML INJECTION IV PRN (21:25)
[2023-03-15] MEDS ORDERED: NALOXONE INJ 0.4MG/1ML VIAL As Ordered ONE (21:34)
[2023-03-15] MEDS ORDERED: hydrALAZINE 20MG/ML 1ML VIAL IV PRN (21:55)
[2023-03-15 22:50] VITALS: BP 168/74; TEMP 99.1; O2SAT 94
[2023-03-15 23:20] VITALS: BP 152/75; TEMP 99; O2SAT 94
[2023-03-15] MEDS ORDERED: LR 1,000 ML IV SCH ×2 (23:25→23:30)
[2023-03-15] MEDS: traZODone 50 MG TAB PO PRN (23:30)
[2023-03-15 23:50] VITALS: BP 107/69; TEMP 99; O2SAT 94
[2023-03-16] VITALS (10 sets, daily range): BP systolic 105–131; BP diastolic 52–85; TEMP 97.6–98.6; O2SAT 89–95
[2023-03-16] MEDS: VANCOMYCIN HCL 750 MG, VIAL MATE ADAPTER 1 EACH in D5W 250 ML IV SCH ×3 (02:16→17:32)
[2023-03-16] MEDS: ISOSORBIDE DIN. (ISORDIL) 20 MG TAB PO SCH ×3 (06:07→17:33)
[2023-03-16] MEDS: HEPARIN SOD (PORCINE) 5000UNITS/ML 1ML VIAL/SYRINGE SQ SCH ×2 (06:08→17:32)
[2023-03-16] MEDS: lisinopriL 40MG TAB PO SCH (09:00)
[2023-03-16 09:07] LABS: BASO % 0.2 % (0.0-1.0); HEMATOCRIT 35.9 % (42.0-52.0); HEMOGLOBIN 11.3 g/dl (13.5-17.5); LYMPH # 1.1 10^3/uL (1.5-5.0); LYMPH % 23.2 % (24.0-44.0); MEAN CORPUSCULAR HEMOGLOBIN 25.8 pg (27.0-33.0); MEAN CORPUSCULAR HGB CONC 31.5 g/dl (32.0-36.5); MONO # 0.2 10^3/uL (0.0-0.8); MONO % 5.3 % (2.0-8.0); NEUTROPHILS # 3.2 10^3/uL (1.5-8.5); NEUTROPHILS % 70.6 % (36.0-66.0); PLATELET COUNT, AUTOMATED 125 10^3/uL (150-450); RED BLOOD COUNT 4.38 10^6/uL (4.30-6.10); WHITE BLOOD COUNT 4.5 10^3/uL (4.0-10.0)
[2023-03-16 09:44] LABS: BLOOD UREA NITROGEN 20 MG/DL (9-23); CALCIUM LEVEL 8.3 MG/DL (8.5-10.1); CARBON DIOXIDE LEVEL 31 MMOL/L (20-31); CHLORIDE LEVEL 103 MMOL/L (98-107); CREATININE FOR GFR 0.82 MG/DL (0.70-1.30); GLOMERULAR FILTRATION RATE > 60.0 (>56); GLUCOSE, FASTING 149 MG/DL (60-100); SODIUM LEVEL 140 MMOL/L (136-145)
[2023-03-16] MEDS: METHADONE 10MG TAB PO SCH (09:55)
[2023-03-16] MEDS: DIVALPROEX 500 MG TAB PO SCH ×2 (09:56→21:42)
[2023-03-16] MEDS: PREGABALIN 100 MG CAP (LYRICA) PO SCH ×3 (09:56→21:41)
[2023-03-16] MEDS: PANTOPRAZOLE 40MG TAB (PROTONIX) PO SCH (09:56)
[2023-03-16] MEDS: ASPIRIN 81MG ENTERIC TABLET PO SCH (09:56)
[2023-03-16] MEDS: ESCITALOPRAM OXALATE 10 MG TAB (LEXAPRO) PO SCH (09:56)
[2023-03-16] MEDS: cloNIDine 0.05MG 1/2 TABLET PO SCH ×2 (09:57→21:42)
[2023-03-16] MEDS ORDERED: MORPHINE 2 MG/ML 1ML VIAL IV ONE (20:55)
[2023-03-17 01:24] VITALS: BP 121/61; TEMP 98.4; O2SAT 95
[2023-03-17] MEDS: VANCOMYCIN HCL 750 MG, VIAL MATE ADAPTER 1 EACH in D5W 250 ML IV SCH ×3 (02:22→21:39)
[2023-03-17] MEDS: HEPARIN SOD (PORCINE) 5000UNITS/ML 1ML VIAL/SYRINGE SQ SCH ×2 (05:13→17:42)
[2023-03-17 06:32] VITALS: BP 129/83; TEMP 98.2; O2SAT 90
[2023-03-17] MEDS: ASPIRIN 81MG ENTERIC TABLET PO SCH (08:11)
[2023-03-17] MEDS: PREGABALIN 100 MG CAP (LYRICA) PO SCH ×3 (08:11→20:58)
[2023-03-17] MEDS: METHADONE 10MG TAB PO SCH (08:11)
[2023-03-17] MEDS: DIVALPROEX 500 MG TAB PO SCH ×2 (08:12→20:58)
[2023-03-17] MEDS: PANTOPRAZOLE 40MG TAB (PROTONIX) PO SCH (08:13)
[2023-03-17] MEDS: ESCITALOPRAM OXALATE 10 MG TAB (LEXAPRO) PO SCH (08:13)
[2023-03-17] MEDS: ISOSORBIDE DIN. (ISORDIL) 20 MG TAB PO SCH ×3 (08:20→17:42)
[2023-03-17] MEDS: cloNIDine 0.05MG 1/2 TABLET PO SCH ×2 (08:21→20:58)
[2023-03-17] MEDS: lisinopriL 40MG TAB PO SCH (08:22)
[2023-03-17 09:17] LABS: BASO % 0.5 % (0.0-1.0); EOS # 0.2 10^3/uL (0.0-0.5); EOS % 3.9 % (0.0-3.0); HEMOGLOBIN 11.1 g/dl (13.5-17.5); LYMPH # 3.7 10^3/uL (1.5-5.0); LYMPH % 60.5 % (24.0-44.0); MEAN CORPUSCULAR HEMOGLOBIN 25.3 pg (27.0-33.0); MEAN CORPUSCULAR VOLUME 84.5 fl (80.0-96.0); MONO # 0.4 10^3/uL (0.0-0.8); NEUTROPHILS # 1.7 10^3/uL (1.5-8.5); NEUTROPHILS % 27.5 % (36.0-66.0); PLATELET COUNT, AUTOMATED 119 10^3/uL (150-450); RED BLOOD COUNT 4.38 10^6/uL (4.30-6.10); WHITE BLOOD COUNT 6.2 10^3/uL (4.0-10.0)
[2023-03-17 09:40] LABS: BLOOD UREA NITROGEN 20 MG/DL (9-23); CALCIUM LEVEL 8.3 MG/DL (8.5-10.1); CARBON DIOXIDE LEVEL 37 MMOL/L (20-31); CHLORIDE LEVEL 103 MMOL/L (98-107); CREATININE FOR GFR 0.97 MG/DL (0.70-1.30); GLOMERULAR FILTRATION RATE > 60.0 (>56); GLUCOSE, FASTING 107 MG/DL (60-100); SODIUM LEVEL 143 MMOL/L (136-145)
[2023-03-17 10:00] VITALS: BP 149/71; TEMP 98.4; O2SAT 93
[2023-03-17] MEDS: VANCOMYCIN HCL 500 MG in D5W MINI-BAG PLUS 100 ML IV SCH ×2 (11:50→23:03)
[2023-03-17 14:00] VITALS: BP 132/74; TEMP 99; O2SAT 96
[2023-03-17 18:00] VITALS: BP 154/69; TEMP 98.8; O2SAT 97
[2023-03-17 20:03] VITALS: BP 148/70; TEMP 98.4; O2SAT 93
[2023-03-18 06:00] VITALS: BP 148/89; TEMP 98.1; O2SAT 97
[2023-03-18] MEDS: ISOSORBIDE DIN. (ISORDIL) 20 MG TAB PO SCH ×2 (06:16→12:11)
[2023-03-18] MEDS: HEPARIN SOD (PORCINE) 5000UNITS/ML 1ML VIAL/SYRINGE SQ SCH (06:17)
[2023-03-18 07:08] LABS: BASO % 0.6 % (0.0-1.0); EOS # 0.3 10^3/uL (0.0-0.5); EOS % 4.6 % (0.0-3.0); HEMATOCRIT 38.9 % (42.0-52.0); HEMOGLOBIN 11.7 g/dl (13.5-17.5); LYMPH # 3.4 10^3/uL (1.5-5.0); LYMPH % 54.4 % (24.0-44.0); MEAN CORPUSCULAR HEMOGLOBIN 25.1 pg (27.0-33.0); MEAN CORPUSCULAR HGB CONC 30.1 g/dl (32.0-36.5); MEAN CORPUSCULAR VOLUME 83.5 fl (80.0-96.0); MONO # 0.5 10^3/uL (0.0-0.8); MONO % 7.1 % (2.0-8.0); NEUTROPHILS # 2.1 10^3/uL (1.5-8.5); NEUTROPHILS % 32.7 % (36.0-66.0); PLATELET COUNT, AUTOMATED 118 10^3/uL (150-450); RED BLOOD COUNT 4.66 10^6/uL (4.30-6.10); WHITE BLOOD COUNT 6.3 10^3/uL (4.0-10.0)
[2023-03-18 07:31] LABS: BLOOD UREA NITROGEN 21 MG/DL (9-23); CALCIUM LEVEL 9.4 MG/DL (8.5-10.1); CARBON DIOXIDE LEVEL 35 MMOL/L (20-31); CHLORIDE LEVEL 103 MMOL/L (98-107); CREATININE FOR GFR 0.88 MG/DL (0.70-1.30); GLOMERULAR FILTRATION RATE > 60.0 (>56); GLUCOSE, FASTING 91 MG/DL (60-100); POTASSIUM SERUM 3.7 MMOL/L (3.5-5.1); SODIUM LEVEL 143 MMOL/L (136-145)
[2023-03-18] MEDS: ASPIRIN 81MG ENTERIC TABLET PO SCH (08:18)
[2023-03-18] MEDS: PANTOPRAZOLE 40MG TAB (PROTONIX) PO SCH (08:18)
[2023-03-18] MEDS: ESCITALOPRAM OXALATE 10 MG TAB (LEXAPRO) PO SCH (08:18)
[2023-03-18] MEDS: PREGABALIN 100 MG CAP (LYRICA) PO SCH (08:18)
[2023-03-18] MEDS: METHADONE 10MG TAB PO SCH (08:19)
[2023-03-18] MEDS: lisinopriL 40MG TAB PO SCH (08:19)
[2023-03-18 08:20] VITALS: BP 136/74
[2023-03-18] MEDS: DIVALPROEX 500 MG TAB PO SCH (08:45)
[2023-03-18] MEDS: cloNIDine 0.05MG 1/2 TABLET PO SCH (08:46)
[2023-03-18] MEDS: VANCOMYCIN HCL 750 MG, VIAL MATE ADAPTER 1 EACH in D5W 250 ML IV SCH (09:05)
[2023-03-18] MEDS: VANCOMYCIN HCL 500 MG in D5W MINI-BAG PLUS 100 ML IV SCH (10:16)
[2023-03-18 12:11] VITALS: BP 142/82
[2023-03-18] MEDS ORDERED: ASPI81TAEC PO (12:39)
[2023-03-18] MEDS ORDERED: DOXY-444 PO (12:39)
[2023-03-18] MEDS ORDERED: PREG100CA PO ×2 (14:16→19:46)
[2023-03-18] MEDS ORDERED: DIVA500T94 PO (14:16)
[2023-03-18] MEDS ORDERED: CHLO125TA PO (14:16)
[2023-03-18] MEDS ORDERED: LEXA1TAB PO (14:16)
[2023-03-18] MEDS ORDERED: CARI1TAB7 PO (14:17)
[2023-03-18] MEDS ORDERED: CLON-412 PO (14:17)
[2023-03-18] MEDS ORDERED: LISI10TA22 PO (14:17)
[2023-03-18] MEDS ORDERED: PANT40TA29 PO (14:25)
[2023-03-18] MEDS ORDERED: IBUP-1022 PO (14:25)
[2023-03-18] MEDS ORDERED: ACET-683 PO (14:25)
[2023-03-19] MEDS ORDERED: PREG100CA PO (01:47)
[2023-03-19] MEDS ORDERED: IBUP1TAB6 PO (01:47)
[2023-03-19] MEDS ORDERED: PANT-23 PO (01:47)
[2023-03-19] MEDS ORDERED: DIVA500T94 PO (01:47)
[2023-03-19] MEDS ORDERED: ASPI81TA26 PO (01:47)
[2023-03-19] MEDS ORDERED: CARI1TAB7 PO (01:47)
[2023-03-19] MEDS ORDERED: ISOS20TA4 PO (01:47)
[2023-03-19] MEDS ORDERED: METH-1177 PO (01:47)
[2023-03-19] MEDS ORDERED: LISI10TA22 PO (01:47)
[2023-03-19] MEDS ORDERED: NICO14DI31 TOP (01:47)
[2023-03-19] MEDS ORDERED: NALO4SPR (01:47)
[2023-03-19] MEDS ORDERED: ACET-683 PO (01:47)
[2023-03-19] MEDS ORDERED: NARC1SPR NARES (01:47)
[2023-03-19] MEDS ORDERED: LEXA1TAB PO (01:47)
[2023-03-19] MEDS ORDERED: CLONI1TA PO (01:47)
[2023-03-19] MEDS ORDERED: CHLO25TA PO (01:47)
== END 2023-03-18 14:45 | disposition home or self-care (01) ==
LOC: ENRESERV 21:50 → M MSPAV 22:06
PROVIDERS: ADMIT Internal Medicine; ATTEND Internal Medicine Nephrology
DX: L02.416 Cutaneous abscess of left lower limb (principal); F32.A Depression, unspecified; R45.851 Suicidal ideations; F19.14 Other psychoactive substance abuse with psychoactive substance-induced mood disorder; I10 Essential (primary) hypertension; G40.909 Epilepsy, unspecified, not intractable, without status epilepticus; Z87.820 Personal history of traumatic brain injury; F41.9 Anxiety disorder, unspecified; F11.21 Opioid dependence, in remission; M62.838 Other muscle spasm; G89.29 Other chronic pain; Z86.14 Personal history of Methicillin resistant Staphylococcus aureus infection; Z87.19 Personal history of other diseases of the digestive system; N48.30 Priapism, unspecified; K21.9 Gastro-esophageal reflux disease without esophagitis; G47.00 Insomnia, unspecified; B18.2 Chronic viral hepatitis C; F17.210 Nicotine dependence, cigarettes, uncomplicated; Z79.899 Other long term (current) drug therapy; Z88.8 Allergy status to other drugs, medicaments and biological substances
CPT/HCPCS: 27603; 36415; 80048; 80202; 85025; 85652; 86140; 87641; 96365; 96366; 96372; 96375; 96376; 97161; 97530; C9290; J0360; J0690; J1100; J1170; J1885; J2250; J2310; J2405; J3010; S0109

== ENCOUNTER → 2023-03-12 | Outpatient (REF) | payer MEDICAID | LOC: M OROP 17:36 | PROVIDERS: ATTEND Student in an Organized Health Care Education/Training Program | DX: L03.116 Cellulitis of left lower limb (principal) ==

== ENCOUNTER 2023-03-18 22:16 | Inpatient (IN) | payer MEDICAID ==
[~2023-03-18] VITALS: Ht 175.3 cm; Wt 91.5 kg
[~2023-03-18 22:16] MED LIST changes: +ASPI81TAEC PO; +CARI1TAB7 PO; +CLON-412 PO; +DOXY-444 PO; +LISI10TA22 PO; +PANT40TA29 PO
[2023-03-18 22:58] LABS: HEMATOCRIT 35.7 % (42.0-52.0); MEAN CORPUSCULAR HEMOGLOBIN 25.5 pg (27.0-33.0); MEAN CORPUSCULAR HGB CONC 30.8 g/dl (32.0-36.5); MEAN CORPUSCULAR VOLUME 82.8 fl (80.0-96.0); PLATELET COUNT, AUTOMATED 112 10^3/uL (150-450); RED BLOOD COUNT 4.31 10^6/uL (4.30-6.10); WHITE BLOOD COUNT 7.6 10^3/uL (4.0-10.0)
[2023-03-18 23:27] LABS: BARBITURATES URINE NEGATIVE (NEGATIVE); COCAINE METABOLITE URINE NEGATIVE (NEGATIVE); OPIATES URINE NEGATIVE (NEGATIVE); PHENCYCLIDINE URINE NEGATIVE (NEGATIVE)
[2023-03-18 23:28] LABS: AMPHETAMINES LEVEL URINE NEGATIVE (NEGATIVE); BENZODIAZEPINES URINE NEGATIVE (NEGATIVE); CANNABINOIDS URINE POSITIVE (NEGATIVE); METHADONE URINE POSITIVE (NEGATIVE)
[2023-03-18 23:29] LABS: ETHYL ALCOHOL (ETHANOL) < 0.003 % (0.000-0.010)
[2023-03-18 23:31] LABS: ACETAMINOPHEN LEVEL < 2.0 UG/ML (10.0-20.0); ALBUMIN 3.6 G/DL (3.2-5.2); ALKALINE PHOSPHATASE 74 U/L (46-116); ALT/SGPT 36 U/L (7.0-40); AST/SGOT 23 U/L (<34); BILIRUBIN,DIRECT 0.2 MG/DL (<0.4); BILIRUBIN,TOTAL 0.4 MG/DL (0.3-1.2); BLOOD UREA NITROGEN 21 MG/DL (9-23); CALCIUM LEVEL 8.7 MG/DL (8.5-10.1); CARBON DIOXIDE LEVEL 34 MMOL/L (20-31); CHLORIDE LEVEL 105 MMOL/L (98-107); CREATININE FOR GFR 0.96 MG/DL (0.70-1.30); GLOMERULAR FILTRATION RATE > 60.0 (>56); GLUCOSE, FASTING 107 MG/DL (60-100); POTASSIUM SERUM 4.2 MMOL/L (3.5-5.1); SALICYLATE LEVEL < 3.0 MG/DL (<30); SODIUM LEVEL 143 MMOL/L (136-145)
[2023-03-19] MEDS ORDERED: NALO4SPR (01:47)
[2023-03-19] MEDS ORDERED: ASPI81TA26 PO (01:47)
[2023-03-19] MEDS ORDERED: IBUP1TAB6 PO (01:47)
[2023-03-19] MEDS ORDERED: ACET-683 PO (01:47)
[2023-03-19] MEDS ORDERED: ISOS20TA4 PO (01:47)
[2023-03-19] MEDS ORDERED: NARC1SPR NARES (01:47)
[2023-03-19] MEDS ORDERED: CLONI1TA PO (01:47)
[2023-03-19] MEDS ORDERED: CHLO25TA PO (01:47)
[2023-03-19] MEDS ORDERED: DIVA500T94 PO (01:47)
[2023-03-19] MEDS ORDERED: NICO14DI31 TOP (01:47)
[2023-03-19] MEDS ORDERED: PANT-23 PO (01:47)
[2023-03-19] MEDS ORDERED: CARI1TAB7 PO (01:47)
[2023-03-19] MEDS ORDERED: METH-1177 PO (01:47)
[2023-03-19] MEDS ORDERED: PREG100CA PO (01:47)
[2023-03-19] MEDS ORDERED: LEXA1TAB PO (01:47)
[2023-03-19] MEDS ORDERED: LISI10TA22 PO (01:47)
[2023-03-19] MEDS ORDERED: HOME MED LIST COMPLETE! XX SCH (01:50)
[2023-03-19] MEDS ORDERED: traZODone 50 MG TAB PO PRN (02:15)
[2023-03-19] MEDS ORDERED: IBUPROFEN 400MG TAB PO PRN (02:15)
[2023-03-19] MEDS ORDERED: OLANZapine ORAL DISINTEGRATING TAB 5MG PO PRN (02:15)
[2023-03-19] MEDS ORDERED: ACETAMINOPHEN 500 MG TAB PO PRN (02:15)
[2023-03-19] MEDS ORDERED: MOM 30ML SUSPENSION UDC PO PRN (02:15)
[2023-03-19] MEDS ORDERED: MAALOX 30 ML SUSP *UDC PO PRN (02:15)
[2023-03-19] MEDS ORDERED: NICOTINE 21MG/24HR 1 EA TRANSDERMAL TD PRN (02:15)
[2023-03-19] MEDS ORDERED: COMBIVENT RESPIMAT 100-20MCG INHALER 4GM INH PRN (02:15)
[2023-03-19 03:16] VITALS: BP 146/79; TEMP 98.9; O2SAT 97
[2023-03-19] MEDS: CHLORTHALIDONE 25 MG TAB PO SCH (08:28)
[2023-03-19] MEDS: DIVALPROEX 500 MG TAB PO SCH ×2 (08:28→20:32)
[2023-03-19] MEDS: ISOSORBIDE DIN. (ISORDIL) 20 MG TAB PO SCH ×3 (08:29→17:43)
[2023-03-19] MEDS: METHADONE 10MG TAB PO SCH (08:29)
[2023-03-19] MEDS: ESCITALOPRAM OXALATE 10 MG TAB (LEXAPRO) PO SCH (08:29)
[2023-03-19] MEDS: ASPIRIN 81MG ENTERIC TABLET PO SCH (08:29)
[2023-03-19] MEDS: PANTOPRAZOLE 40MG TAB (PROTONIX) PO SCH (08:29)
[2023-03-19] MEDS: cloNIDine 0.1MG TABLET PO SCH ×2 (08:29→20:33)
[2023-03-19] MEDS: PREGABALIN 100 MG CAP (LYRICA) PO SCH ×3 (08:30→20:32)
[2023-03-19] MEDS: carisoprodoL 350 MG TAB PO PRN ×2 (11:30→20:32)
[2023-03-19] MEDS: DOXYCYCLINE HYCLATE 100MG TABLET PO SCH ×2 (11:31→20:34)
[2023-03-19 18:15] VITALS: BP 165/89; TEMP 96.9; O2SAT 99
[2023-03-20] MEDS: ISOSORBIDE DIN. (ISORDIL) 20 MG TAB PO SCH ×3 (06:33→16:45)
[2023-03-20 06:43] VITALS: BP 129/71; TEMP 98.1; O2SAT 95
[2023-03-20 09:19] VITALS: BP_SYST 148; BP_SYST 184; BP_DIAS 83; O2SAT 70
[2023-03-20] MEDS: DIVALPROEX 500 MG TAB PO SCH ×2 (09:19→20:36)
[2023-03-20] MEDS: cloNIDine 0.1MG TABLET PO SCH ×2 (09:20→20:37)
[2023-03-20] MEDS: PANTOPRAZOLE 40MG TAB (PROTONIX) PO SCH (09:20)
[2023-03-20] MEDS: PREGABALIN 100 MG CAP (LYRICA) PO SCH ×3 (09:20→20:36)
[2023-03-20] MEDS: ESCITALOPRAM OXALATE 10 MG TAB (LEXAPRO) PO SCH (09:20)
[2023-03-20] MEDS: ASPIRIN 81MG ENTERIC TABLET PO SCH (09:21)
[2023-03-20] MEDS: DOXYCYCLINE HYCLATE 100MG TABLET PO SCH ×2 (09:21→20:37)
[2023-03-20] MEDS: METHADONE 10MG TAB PO SCH (09:21)
[2023-03-20] MEDS: CHLORTHALIDONE 25 MG TAB PO SCH (09:22)
[2023-03-20] MEDS: carisoprodoL 350 MG TAB PO PRN (15:03)
[2023-03-20 18:32] VITALS: TEMP 98; O2SAT 99
[2023-03-20] MEDS: diphenhydrAMINE 25MG CAP PO PRN (20:38)
[2023-03-21 06:20] VITALS: BP 142/81; TEMP 98; O2SAT 94
[2023-03-21] MEDS: ISOSORBIDE DIN. (ISORDIL) 20 MG TAB PO SCH ×3 (06:24→17:43)
[2023-03-21] MEDS: METHADONE 10MG TAB PO SCH (09:51)
[2023-03-21] MEDS: DOXYCYCLINE HYCLATE 100MG TABLET PO SCH ×2 (09:51→20:23)
[2023-03-21] MEDS: ASPIRIN 81MG ENTERIC TABLET PO SCH (09:51)
[2023-03-21] MEDS: PANTOPRAZOLE 40MG TAB (PROTONIX) PO SCH (09:51)
[2023-03-21] MEDS: ESCITALOPRAM OXALATE 10 MG TAB (LEXAPRO) PO SCH (09:51)
[2023-03-21] MEDS: DIVALPROEX 500 MG TAB PO SCH ×2 (09:51→20:24)
[2023-03-21] MEDS: PREGABALIN 100 MG CAP (LYRICA) PO SCH ×3 (09:51→20:24)
[2023-03-21] MEDS: CHLORTHALIDONE 25 MG TAB PO SCH (09:52)
[2023-03-21 10:11] VITALS: BP 150/88
[2023-03-21] MEDS: cloNIDine 0.1MG TABLET PO SCH ×2 (10:12→20:24)
[2023-03-21 18:57] VITALS: BP 137/73; TEMP 97.4
[2023-03-21] MEDS: carisoprodoL 350 MG TAB PO PRN (20:23)
[2023-03-21] MEDS: diphenhydrAMINE 25MG CAP PO PRN (20:24)
[2023-03-22 06:00] VITALS: BP 158/86; TEMP 98.1; O2SAT 95
[2023-03-22] MEDS: ISOSORBIDE DIN. (ISORDIL) 20 MG TAB PO SCH ×3 (06:07→17:05)
[2023-03-22 06:45] VITALS: BP 158/86; TEMP 98.1; O2SAT 95
[2023-03-22 08:40] VITALS: BP 145/69
[2023-03-22] MEDS: ASPIRIN 81MG ENTERIC TABLET PO SCH (08:41)
[2023-03-22] MEDS: CHLORTHALIDONE 25 MG TAB PO SCH (08:41)
[2023-03-22] MEDS: ESCITALOPRAM OXALATE 10 MG TAB (LEXAPRO) PO SCH (08:41)
[2023-03-22] MEDS: PANTOPRAZOLE 40MG TAB (PROTONIX) PO SCH (08:41)
[2023-03-22] MEDS: DIVALPROEX 500 MG TAB PO SCH ×2 (08:42→20:19)
[2023-03-22] MEDS: PREGABALIN 100 MG CAP (LYRICA) PO SCH ×3 (08:43→20:19)
[2023-03-22] MEDS: cloNIDine 0.1MG TABLET PO SCH ×2 (08:43→20:20)
[2023-03-22] MEDS: DOXYCYCLINE HYCLATE 100MG TABLET PO SCH ×2 (08:43→20:19)
[2023-03-22] MEDS: METHADONE 10MG TAB PO SCH (08:43)
[2023-03-22 18:52] VITALS: BP 120/78; TEMP 98.9; O2SAT 100
[2023-03-22] MEDS: diphenhydrAMINE 25MG CAP PO PRN (20:19)
[2023-03-22] MEDS: carisoprodoL 350 MG TAB PO PRN (20:19)
[2023-03-23] MEDS: ISOSORBIDE DIN. (ISORDIL) 20 MG TAB PO SCH (06:51)
[2023-03-23 07:02] VITALS: BP 161/82; TEMP 98.5; O2SAT 96
[2023-03-23] MEDS ORDERED: CLONI1TA PO (08:16)
[2023-03-23] MEDS ORDERED: LEXA5TAB13 PO (08:16)
[2023-03-23] MEDS ORDERED: NICO21PAT TD (08:16)
[2023-03-23] MEDS ORDERED: DIVA500T94 PO (08:16)
[2023-03-23] MEDS ORDERED: LEXA1TAB PO (08:16)
[2023-03-23] MEDS ORDERED: DOXY100T PO (08:16)
[2023-03-23] MEDS: CHLORTHALIDONE 25 MG TAB PO SCH (08:27)
[2023-03-23] MEDS: METHADONE 10MG TAB PO SCH (08:27)
[2023-03-23] MEDS: PANTOPRAZOLE 40MG TAB (PROTONIX) PO SCH (08:28)
[2023-03-23] MEDS: PREGABALIN 100 MG CAP (LYRICA) PO SCH (08:28)
[2023-03-23] MEDS: DIVALPROEX 500 MG TAB PO SCH (08:28)
[2023-03-23] MEDS: cloNIDine 0.1MG TABLET PO SCH (08:28)
[2023-03-23] MEDS: ASPIRIN 81MG ENTERIC TABLET PO SCH (08:28)
[2023-03-23 08:29] VITALS: BP 161/82
[2023-03-23] MEDS: DOXYCYCLINE HYCLATE 100MG TABLET PO SCH (08:29)
[2023-03-23] MEDS ORDERED: ESCITALOPRAM OXALATE 5MG TABLET (LEXAPRO) PO SCH (09:00)
== END 2023-03-23 10:15 | disposition home or self-care (01) | DRG 753 ==
LOC: M ED 22:16 → M ED INP 03-19 02:12 → M PSY 03-19 02:36
PROVIDERS: ADMIT Student in an Organized Health Care Education/Training Program; ATTEND Student in an Organized Health Care Education/Training Program
DX: F32.89 Other specified depressive episodes (principal); G40.909 Epilepsy, unspecified, not intractable, without status epilepticus; R45.851 Suicidal ideations; F11.10 Opioid abuse, uncomplicated; F15.10 Other stimulant abuse, uncomplicated; F43.21 Adjustment disorder with depressed mood; F12.10 Cannabis abuse, uncomplicated; F17.200 Nicotine dependence, unspecified, uncomplicated; B19.20 Unspecified viral hepatitis C without hepatic coma; F60.89 Other specific personality disorders; G47.00 Insomnia, unspecified; M47.812 Spondylosis without myelopathy or radiculopathy, cervical region; I10 Essential (primary) hypertension; F60.7 Dependent personality disorder; K21.9 Gastro-esophageal reflux disease without esophagitis; Z87.820 Personal history of traumatic brain injury; Z98.1 Arthrodesis status; Z87.81 Personal history of (healed) traumatic fracture; Z91.51 Personal history of suicidal behavior

== ENCOUNTER 2023-03-26 07:19 | Emergency (ER) | payer MEDICAID, OTHER ==
[~2023-03-26] VITALS: Ht 175.3 cm; Wt 86.2 kg
[~2023-03-26 07:19] MED LIST changes: +ASPI81TA26 PO; +CLONI1TA PO; +DOXY100T PO; +IBUP1TAB6 PO; +LEXA5TAB13 PO; +NALO4SPR; +NICO14DI31 TOP; +PANT-23 PO
[2023-03-26] MEDS ORDERED: cloNIDine 0.1MG TABLET PO ONE (07:40)
[2023-03-26] MEDS ORDERED: CHLORTHALIDONE 25 MG TAB PO ONE (07:40)
[2023-03-26] MEDS ORDERED: ISOSORBIDE DIN. (ISORDIL) 20 MG TAB PO ONE (07:40)
[2023-03-26 07:56] VITALS: BP 189/103
[2023-03-26 07:58] LABS: BASO % 0.3 % (0.0-1.0); EOS # 0.2 10^3/uL (0.0-0.5); EOS % 1.5 % (0.0-3.0); HEMATOCRIT 40.3 % (42.0-52.0); LYMPH # 3.8 10^3/uL (1.5-5.0); LYMPH % 36.9 % (24.0-44.0); MEAN CORPUSCULAR HEMOGLOBIN 25.7 pg (27.0-33.0); MEAN CORPUSCULAR HGB CONC 32.3 g/dl (32.0-36.5); MEAN CORPUSCULAR VOLUME 79.8 fl (80.0-96.0); MONO # 1.2 10^3/uL (0.0-0.8); MONO % 11.3 % (2.0-8.0); NEUTROPHILS # 5.1 10^3/uL (1.5-8.5); NEUTROPHILS % 49.6 % (36.0-66.0); PLATELET COUNT, AUTOMATED 167 10^3/uL (150-450); RED BLOOD COUNT 5.05 10^6/uL (4.30-6.10); WHITE BLOOD COUNT 10.3 10^3/uL (4.0-10.0)
[2023-03-26 08:15] LABS: ETHYL ALCOHOL (ETHANOL) < 0.003 % (0.000-0.010); VALPROIC ACID (DEPAKOTE) 21.7 UG/ML (50.0-100.0)
[2023-03-26 08:17] LABS: ACETAMINOPHEN LEVEL < 2.0 UG/ML (10.0-20.0); ALKALINE PHOSPHATASE 78 U/L (46-116); ALT/SGPT 35 U/L (7.0-40); AST/SGOT 39 U/L (<34); BILIRUBIN,DIRECT 0.3 MG/DL (<0.4); BILIRUBIN,TOTAL 0.7 MG/DL (0.3-1.2); BLOOD UREA NITROGEN 26 MG/DL (9-23); CALCIUM LEVEL 9.1 MG/DL (8.5-10.1); CARBON DIOXIDE LEVEL 28 MMOL/L (20-31); CHLORIDE LEVEL 101 MMOL/L (98-107); CREATININE FOR GFR 1.51 MG/DL (0.70-1.30); GLOMERULAR FILTRATION RATE 50.6 (>56); GLUCOSE, FASTING 131 MG/DL (60-100); POTASSIUM SERUM 3.2 MMOL/L (3.5-5.1); SALICYLATE LEVEL < 3.0 MG/DL (<30); SODIUM LEVEL 140 MMOL/L (136-145); TOTAL PROTEIN 7.5 G/DL (5.7-8.2)
[2023-03-26 08:19] LABS: THYROID STIMULATING HORMONE 1.269 uIU/ML (0.55-4.78)
[2023-03-26 08:26] LABS: BARBITURATES URINE NEGATIVE (NEGATIVE); BENZODIAZEPINES URINE NEGATIVE (NEGATIVE); COCAINE METABOLITE URINE NEGATIVE (NEGATIVE); OPIATES URINE NEGATIVE (NEGATIVE); PHENCYCLIDINE URINE NEGATIVE (NEGATIVE)
[2023-03-26 08:30] LABS: AMPHETAMINES LEVEL URINE POSITIVE (NEGATIVE); CANNABINOIDS URINE POSITIVE (NEGATIVE); METHADONE URINE POSITIVE (NEGATIVE)
[2023-03-26 09:57] VITALS: BP 141/76; TEMP 98.3; O2SAT 98
== END 2023-03-26 10:31 | disposition home or self-care (01) ==
LOC: EDBD 07:19 → M ED 07:19
DX: R55 Syncope and collapse (principal); R56.9 Unspecified convulsions; E86.0 Dehydration; I10 Essential (primary) hypertension; F32.A Depression, unspecified; K21.9 Gastro-esophageal reflux disease without esophagitis; Z88.6 Allergy status to analgesic agent; Z79.899 Other long term (current) drug therapy; Z79.82 Long term (current) use of aspirin

== ENCOUNTER 2023-10-03 13:29 | Inpatient (IN) | payer MEDICAID, OTHER ==
[~2023-10-03] VITALS: Ht 175.3 cm; Wt 82.3 kg
[2023-10-03] MEDS ORDERED: cloNIDine 0.1MG TABLET PO ONE (14:15)
[2023-10-03] MEDS ORDERED: CHLORTHALIDONE 25 MG TAB PO ONE (14:15)
[2023-10-03 14:53] LABS: HEMATOCRIT 42.8 % (42.0-52.0); HEMOGLOBIN 13.5 g/dl (13.5-17.5); MEAN CORPUSCULAR HEMOGLOBIN 25.8 pg (27.0-33.0); MEAN CORPUSCULAR HGB CONC 31.5 g/dl (32.0-36.5); MEAN CORPUSCULAR VOLUME 81.7 fl (80.0-96.0); PLATELET COUNT, AUTOMATED 182 10^3/uL (150-450); RED BLOOD COUNT 5.24 10^6/uL (4.30-6.10); WHITE BLOOD COUNT 9.2 10^3/uL (4.0-10.0)
[2023-10-03 15:16] LABS: BARBITURATES URINE NEGATIVE (NEGATIVE); BENZODIAZEPINES URINE NEGATIVE (NEGATIVE); COCAINE METABOLITE URINE NEGATIVE (NEGATIVE); OPIATES URINE NEGATIVE (NEGATIVE); PHENCYCLIDINE URINE NEGATIVE (NEGATIVE)
[2023-10-03 15:19] LABS: ETHYL ALCOHOL (ETHANOL) < 0.003 % (0.000-0.010)
[2023-10-03 15:20] LABS: AMPHETAMINES LEVEL URINE POSITIVE (NEGATIVE); CANNABINOIDS URINE POSITIVE (NEGATIVE); METHADONE URINE POSITIVE (NEGATIVE); SALICYLATE LEVEL < 3.0 MG/DL (<30)
[2023-10-03 15:21] LABS: ALBUMIN 3.8 G/DL (3.2-5.2); ALKALINE PHOSPHATASE 100 U/L (46-116); ALT/SGPT 28 U/L (7.0-40); AST/SGOT 31 U/L (<34); BILIRUBIN,DIRECT 0.2 MG/DL (<0.4); BILIRUBIN,TOTAL 0.7 MG/DL (0.3-1.2); BLOOD UREA NITROGEN 17 MG/DL (9-23); CALCIUM LEVEL 9.4 MG/DL (8.5-10.1); CARBON DIOXIDE LEVEL 31 MMOL/L (20-31); CHLORIDE LEVEL 106 MMOL/L (98-107); CREATININE FOR GFR 1.12 MG/DL (0.70-1.30); GLOMERULAR FILTRATION RATE > 60.0 (>56); GLUCOSE, FASTING 98 MG/DL (60-100); POTASSIUM SERUM 3.7 MMOL/L (3.5-5.1); SODIUM LEVEL 143 MMOL/L (136-145); TOTAL PROTEIN 7.3 G/DL (5.7-8.2)
[2023-10-03 15:23] LABS: THYROID STIMULATING HORMONE 0.986 uIU/ML (0.55-4.78)
[2023-10-03] MEDS ORDERED: ACETAMINOPHEN TAB 650MG DOSE (2X325MG) PO PRN (20:10)
[2023-10-03] MEDS ORDERED: diphenhydrAMINE 25MG CAP PO PRN (20:10)
[2023-10-03] MEDS ORDERED: NICOTINE 21MG/24HR 1 EA TRANSDERMAL TD PRN (20:10)
[2023-10-03] MEDS ORDERED: MOM 30ML SUSPENSION UDC PO PRN (20:10)
[2023-10-03] MEDS ORDERED: OLANZapine ORAL DISINTEGRATING TAB 5MG PO PRN (20:10)
[2023-10-03] MEDS ORDERED: METH10CO PO (22:11)
[2023-10-03] MEDS ORDERED: MED REC IN PROGRESS XX SCH (22:15)
[2023-10-04] VITALS (9 sets, daily range): BP systolic 131–192; BP diastolic 83–110; TEMP 96.7–98.7; O2SAT 96–99
[2023-10-04] MEDS ORDERED: cloNIDine 0.1MG TABLET PO ONE
[2023-10-04] MEDS ORDERED: amLODIPine 5 MG TAB PO ONE (03:00)
[2023-10-04] MEDS ORDERED: INFLUENZA QUADRIVALENT PF VACCINE 0.5ML SYRINGE IM.IMMUN ONE (09:00)
[2023-10-04] MEDS: amLODIPine 5 MG TAB PO SCH ×2 (09:35→21:03)
[2023-10-04] MEDS: **hydrALAZINE HCL** 25 MG TAB PO SCH ×3 (12:17→23:55)
[2023-10-04] MEDS: THIAMINE 100 MG TAB PO SCH (21:00)
[2023-10-04] MEDS: traZODone 50 MG TAB PO PRN (21:03)
[2023-10-05] VITALS (7 sets, daily range): BP systolic 130–200; BP diastolic 61–120; TEMP 96.8–97.3; O2SAT 97–98
[2023-10-05] MEDS ORDERED: LORazepam 2 MG TAB PO PRN (00:10)
[2023-10-05] MEDS: **hydrALAZINE HCL** 25 MG TAB PO SCH (05:43)
[2023-10-05] MEDS ORDERED: cloNIDine 0.1MG TABLET PO ONE (07:00)
[2023-10-05] MEDS ORDERED: LIDOCAINE 5% (LIDODERM) PATCH TD ONE (07:00)
[2023-10-05] MEDS: amLODIPine 5 MG TAB PO SCH ×2 (09:07→20:45)
[2023-10-05] MEDS: MULTIVITAMINS/MINERALS THERAP 1 TAB PO SCH (09:07)
[2023-10-05] MEDS: THIAMINE 100 MG TAB PO SCH ×2 (09:07→20:44)
[2023-10-05] MEDS: ESCITALOPRAM OXALATE 10 MG TAB (LEXAPRO) PO SCH (09:07)
[2023-10-05] MEDS: FOLIC ACID 1MG TAB PO SCH (09:07)
[2023-10-05] MEDS: **hydrALAZINE** 50 MG TAB PO SCH ×3 (12:00→23:43)
[2023-10-05] MEDS: METHADONE 10MG TAB PO SCH (12:51)
[2023-10-05] MEDS: traZODone 50 MG TAB PO PRN (20:46)
[2023-10-06 00:22] VITALS: BP 132/77
[2023-10-06] MEDS: **hydrALAZINE** 50 MG TAB PO SCH ×3 (05:42→18:00)
[2023-10-06 06:25] VITALS: BP 141/72; TEMP 98; O2SAT 98
[2023-10-06 06:26] VITALS: BP 141/72
[2023-10-06] MEDS: METHADONE 10MG TAB PO SCH (09:14)
[2023-10-06] MEDS: MULTIVITAMINS/MINERALS THERAP 1 TAB PO SCH (09:15)
[2023-10-06] MEDS: ESCITALOPRAM OXALATE 10 MG TAB (LEXAPRO) PO SCH (09:15)
[2023-10-06] MEDS: amLODIPine 5 MG TAB PO SCH ×2 (09:16→20:55)
[2023-10-06] MEDS: FOLIC ACID 1MG TAB PO SCH (09:16)
[2023-10-06] MEDS: THIAMINE 100 MG TAB PO SCH ×2 (09:16→20:56)
[2023-10-06 14:00] VITALS: BP 140/80
[2023-10-06 16:23] VITALS: BP 140/80; TEMP 98; O2SAT 98
[2023-10-06] MEDS: MAALOX 30 ML SUSP *UDC PO PRN (17:10)
[2023-10-06] MEDS: traZODone 50 MG TAB PO PRN (20:52)
[2023-10-07] MEDS: **hydrALAZINE** 50 MG TAB PO SCH ×5 (05:38→23:59)
[2023-10-07 06:13] VITALS: BP 162/93; TEMP 97.8; O2SAT 98
[2023-10-07] MEDS: THIAMINE 100 MG TAB PO SCH ×2 (09:19→20:54)
[2023-10-07] MEDS: ESCITALOPRAM OXALATE 10 MG TAB (LEXAPRO) PO SCH (09:20)
[2023-10-07] MEDS: amLODIPine 5 MG TAB PO SCH ×2 (09:20→20:54)
[2023-10-07] MEDS: METHADONE 10MG TAB PO SCH (09:20)
[2023-10-07] MEDS ORDERED: ONDANSETRON 4MG ORAL DISINTEGRATING TAB PO PRN (16:45)
[2023-10-07 17:18] VITALS: BP 121/74; TEMP 97.3; O2SAT 98
[2023-10-07] MEDS: MAALOX 30 ML SUSP *UDC PO PRN (20:53)
[2023-10-07] MEDS: traZODone 50 MG TAB PO PRN (20:54)
[2023-10-08] MEDS: **hydrALAZINE** 50 MG TAB PO SCH ×3 (06:00→17:36)
[2023-10-08 06:16] VITALS: BP 129/68; TEMP 99.5; O2SAT 96
[2023-10-08] MEDS: METHADONE 10MG TAB PO SCH (08:40)
[2023-10-08] MEDS: ESCITALOPRAM OXALATE 10 MG TAB (LEXAPRO) PO SCH (08:40)
[2023-10-08] MEDS: amLODIPine 5 MG TAB PO SCH ×2 (08:41→20:45)
[2023-10-08] MEDS: THIAMINE 100 MG TAB PO SCH (08:41)
[2023-10-08 17:35] VITALS: BP 132/73; TEMP 98.2; O2SAT 94
[2023-10-08] MEDS: traZODone 50 MG TAB PO PRN (20:44)
[2023-10-08] MEDS: MAALOX 30 ML SUSP *UDC PO PRN (20:44)
[2023-10-09] MEDS: **hydrALAZINE** 50 MG TAB PO SCH ×5 (00:12→23:48)
[2023-10-09 05:39] VITALS: BP 148/80
[2023-10-09 06:07] VITALS: BP 148/80; TEMP 99.5; O2SAT 97
[2023-10-09 08:46] VITALS: BP 119/76
[2023-10-09] MEDS: METHADONE 10MG TAB PO SCH (08:49)
[2023-10-09] MEDS: ESCITALOPRAM OXALATE 10 MG TAB (LEXAPRO) PO SCH (08:49)
[2023-10-09] MEDS: amLODIPine 5 MG TAB PO SCH ×2 (08:49→21:35)
[2023-10-09 16:58] VITALS: BP 127/68; TEMP 99.3
[2023-10-09 21:34] VITALS: BP 119/71
[2023-10-09] MEDS: traZODone 50 MG TAB PO PRN (21:34)
[2023-10-10] MEDS: **hydrALAZINE** 50 MG TAB PO SCH ×2 (05:48→12:00)
[2023-10-10 06:28] VITALS: BP 174/89; TEMP 96.8; O2SAT 97
[2023-10-10] MEDS ORDERED: TRAZ-252 PO (09:26)
[2023-10-10] MEDS ORDERED: HYDR50TA46 PO (09:26)
[2023-10-10] MEDS ORDERED: LISI10TA22 PO (09:26)
[2023-10-10] MEDS ORDERED: AMLO1TAB24 PO (09:26)
[2023-10-10] MEDS ORDERED: NICO21PAT TD (09:26)
[2023-10-10] MEDS ORDERED: LEXA1TAB2 PO (09:26)
[2023-10-10 09:42] VITALS: BP 127/77
[2023-10-10] MEDS: amLODIPine 5 MG TAB PO SCH (09:44)
[2023-10-10] MEDS: METHADONE 10MG TAB PO SCH (09:44)
[2023-10-10] MEDS: ESCITALOPRAM OXALATE 10 MG TAB (LEXAPRO) PO SCH (09:45)
[2023-10-10 12:00] VITALS: BP 126/70
[2023-10-10 12:03] VITALS: BP 126/70
== END 2023-10-10 13:08 | disposition home or self-care (01) | DRG 753 ==
LOC: M ED 13:29 → M ED INP 20:10 → EEVIPCON 20:10 → M PSY 10-04 00:33
PROVIDERS: ADMIT Student in an Organized Health Care Education/Training Program; ATTEND Student in an Organized Health Care Education/Training Program
DX: F32.89 Other specified depressive episodes (principal); G40.909 Epilepsy, unspecified, not intractable, without status epilepticus; R45.851 Suicidal ideations; F15.14 Other stimulant abuse with stimulant-induced mood disorder; F12.10 Cannabis abuse, uncomplicated; I10 Essential (primary) hypertension; M10.9 Gout, unspecified; M47.812 Spondylosis without myelopathy or radiculopathy, cervical region; M47.816 Spondylosis without myelopathy or radiculopathy, lumbar region; G89.29 Other chronic pain; K21.9 Gastro-esophageal reflux disease without esophagitis; G47.00 Insomnia, unspecified; Z87.820 Personal history of traumatic brain injury; B18.2 Chronic viral hepatitis C; F17.200 Nicotine dependence, unspecified, uncomplicated; Z91.128 Patient's intentional underdosing of medication regimen for other reason; Z86.14 Personal history of Methicillin resistant Staphylococcus aureus infection; Z88.6 Allergy status to analgesic agent; Z79.899 Other long term (current) drug therapy; T46.4X6A Underdosing of angiotensin-converting-enzyme inhibitors, initial encounter

== ENCOUNTER 2024-07-16 05:58 | Inpatient (IN) | payer MEDICAID, OTHER ==
[~2024-07-16] VITALS: Ht 177.8 cm; Wt 83.0 kg
[~2024-07-16 05:58] MED LIST changes: +AMLO1TAB24 PO; +DOXY-440 PO; -DOXY-444 PO; +HYDR50TA46 PO; +LEXA1TAB2 PO; -NALO4SPR; +NALO4SPR20; +NYST1POW3 TOP; -NYST1POW9 TOP
[2024-07-16 06:55] LABS: HEMATOCRIT 38.9 % (42.0-52.0); HEMOGLOBIN 12.7 g/dl (13.5-17.5); MEAN CORPUSCULAR HGB CONC 32.6 g/dl (32.0-36.5); MEAN CORPUSCULAR VOLUME 79.7 fl (80.0-96.0); PLATELET COUNT, AUTOMATED 240 10^3/uL (150-450); RED BLOOD COUNT 4.88 10^6/uL (4.30-6.10); WHITE BLOOD COUNT 12.6 10^3/uL (4.0-10.0)
[2024-07-16 07:03] LABS: BARBITURATES URINE NEGATIVE (NEGATIVE); BENZODIAZEPINES URINE NEGATIVE (NEGATIVE); COCAINE METABOLITE URINE NEGATIVE (NEGATIVE); OPIATES URINE NEGATIVE (NEGATIVE); PHENCYCLIDINE URINE NEGATIVE (NEGATIVE)
[2024-07-16 07:05] LABS: AMPHETAMINES LEVEL URINE POSITIVE (NEGATIVE); CANNABINOIDS URINE POSITIVE (NEGATIVE); ETHYL ALCOHOL (ETHANOL) 0.008 % (0.000-0.010); METHADONE URINE POSITIVE (NEGATIVE)
[2024-07-16 07:06] LABS: SALICYLATE LEVEL < 3.0 MG/DL (<30)
[2024-07-16 07:07] LABS: ALBUMIN 3.8 G/DL (3.2-5.2); ALKALINE PHOSPHATASE 104 U/L (40-129); ALT/SGPT 25 U/L (7.0-40); AST/SGOT 27 U/L (<34); BILIRUBIN,DIRECT 0.4 MG/DL (<0.4); BILIRUBIN,TOTAL 1.1 MG/DL (0.3-1.2); BLOOD UREA NITROGEN 17 MG/DL (9-23); CALCIUM LEVEL 9.8 MG/DL (8.3-10.6); CARBON DIOXIDE LEVEL 26 MMOL/L (20-31); CHLORIDE LEVEL 104 MMOL/L (98-107); CREATININE FOR GFR 1.18 MG/DL (0.70-1.30); GLOMERULAR FILTRATION RATE > 60.0 (>49); GLUCOSE, FASTING 103 MG/DL (74-106); POTASSIUM SERUM 3.7 MMOL/L (3.5-5.1); SODIUM LEVEL 138 MMOL/L (136-145); TOTAL PROTEIN 8.1 G/DL (5.7-8.2)
[2024-07-16 07:10] LABS: THYROID STIMULATING HORMONE 1.926 uIU/ML (0.55-4.78)
[2024-07-16] MEDS ORDERED: HOME MED LIST COMPLETE! XX SCH ×2 (08:35→13:00)
[2024-07-16] MEDS: amLODIPine 5 MG TAB PO ONE (08:59)
[2024-07-16] MEDS ORDERED: MOM 30ML SUSPENSION UDC PO PRN (10:45)
[2024-07-16] MEDS ORDERED: ACETAMINOPHEN 325 MG TAB PO PRN (10:45)
[2024-07-16 11:55] VITALS: BP 138/82; TEMP 97.4; O2SAT 96
[2024-07-16] MEDS: METHADONE 5MG TAB PO SCH (13:19)
[2024-07-16] MEDS: METHADONE 10MG TAB PO SCH (13:21)
[2024-07-16 15:47] VITALS: BP 162/87; TEMP 98.3; O2SAT 97
[2024-07-16] MEDS: MAALOX 30 ML SUSP *UDC PO PRN (16:09)
[2024-07-17 06:10] VITALS: BP 131/75; TEMP 97; O2SAT 95
[2024-07-17 15:00] VITALS: BP 151/72; TEMP 97.9; O2SAT 95
[2024-07-17] MEDS: SERTRALINE HCL 50 MG TAB PO SCH (16:32)
[2024-07-18 06:20] VITALS: BP 185/93; TEMP 97.4; O2SAT 97
[2024-07-18 06:29] VITALS: BP 160/94
[2024-07-18] MEDS: lisinopriL 5 MG TAB PO SCH (08:24)
[2024-07-18 15:40] VITALS: BP 145/84; TEMP 97.3; O2SAT 94
[2024-07-18] MEDS: amLODIPine 5 MG TAB PO SCH (15:45)
[2024-07-18 18:03] LABS: APPEARANCE, URINE CLEAR (CLEAR); BACTERIA, URINE AUTO NEGATIVE (NEGATIVE); BILIRUBIN, URINE AUTO NEGATIVE (NEGATIVE); BLOOD, URINE BLOOD NEGATIVE (NEGATIVE); COLOR, URINE STRAW (YELLOW); GLUCOSE, URINE (UA) AUTO NEGATIVE (NEGATIVE); KETONE, URINE AUTO NEGATIVE (NEGATIVE); LEUKOCYTE ESTERASE, URINE AUTO NEGATIVE (NEGATIVE); NITRITE, URINE AUTO NEGATIVE (NEGATIVE); PROTEIN, URINE AUTO NEGATIVE (NEGATIVE); RBC, URINE AUTO 0 /HPF (0-3); SPECIFIC GRAVITY URINE AUTO 1.005 (1.002-1.035); SQUAMOUS EPITHELIAL CELL UR AU 0 /HPF (0-6); UROBILINOGEN, URINE AUTO 0.2 mg/dL (0.0-2.0); WBC, URINE AUTO 0 /HPF (0-3)
[2024-07-19 06:06] VITALS: BP 149/99; TEMP 97.3; O2SAT 98
[2024-07-19 06:36] LABS: BASO # 0.1 10^3/uL (0.0-0.2); BASO % 0.7 % (0.0-1.0); EOS # 0.4 10^3/uL (0.0-0.5); EOS % 4.9 % (0.0-3.0); HEMATOCRIT 43.1 % (42.0-52.0); HEMOGLOBIN 13.5 g/dl (13.5-17.5); LYMPH # 3.1 10^3/uL (1.5-5.0); LYMPH % 36.9 % (24.0-44.0); MEAN CORPUSCULAR HEMOGLOBIN 25.8 pg (27.0-33.0); MEAN CORPUSCULAR HGB CONC 31.3 g/dl (32.0-36.5); MEAN CORPUSCULAR VOLUME 82.4 fl (80.0-96.0); MONO # 0.6 10^3/uL (0.0-0.8); MONO % 6.7 % (2.0-8.0); NEUTROPHILS # 4.3 10^3/uL (1.5-8.5); NEUTROPHILS % 50.6 % (36.0-66.0); PLATELET COUNT, AUTOMATED 235 10^3/uL (150-450); RED BLOOD COUNT 5.23 10^6/uL (4.30-6.10); WHITE BLOOD COUNT 8.4 10^3/uL (4.0-10.0)
[2024-07-19 07:00] LABS: BLOOD UREA NITROGEN 11 MG/DL (9-23); CALCIUM LEVEL 9.6 MG/DL (8.3-10.6); CARBON DIOXIDE LEVEL 32 MMOL/L (20-31); CHLORIDE LEVEL 104 MMOL/L (98-107); CREATININE FOR GFR 0.88 MG/DL (0.70-1.30); GLOMERULAR FILTRATION RATE > 60.0 (>49); GLUCOSE, FASTING 104 MG/DL (74-106); POTASSIUM SERUM 4.6 MMOL/L (3.5-5.1); SODIUM LEVEL 139 MMOL/L (136-145)
[2024-07-19 08:31] VITALS: BP 140/86; TEMP 96.8; O2SAT 100
[2024-07-19] MEDS: NICOTINE 21MG/24HR 1 EA TRANSDERMAL TD SCH (11:30)
[2024-07-19 15:58] VITALS: BP 116/69; TEMP 97.4; O2SAT 97
[2024-07-20 06:26] VITALS: BP 143/79; TEMP 98; O2SAT 100
[2024-07-20 15:44] VITALS: BP 166/92; TEMP 96.9; O2SAT 95
[2024-07-20 17:01] VITALS: BP 158/81
[2024-07-20] MEDS: diphenhydrAMINE 25MG CAP PO PRN (20:35)
[2024-07-20] MEDS: traZODone 50 MG TAB PO PRN (20:35)
[2024-07-21 06:32] VITALS: BP 142/76; TEMP 98; O2SAT 98
[2024-07-21 15:20] VITALS: BP 164/86; TEMP 98.1; O2SAT 93
[2024-07-21 18:52] VITALS: BP 182/94
[2024-07-21] MEDS: cloNIDine 0.1MG TABLET PO STA (18:59)
[2024-07-21 22:00] VITALS: BP 202/100
[2024-07-21] MEDS: amLODIPine 5 MG TAB PO ONE (22:07)
[2024-07-21 23:07] VITALS: BP 176/98
[2024-07-22 06:41] VITALS: BP 186/98; TEMP 97.7; O2SAT 95
[2024-07-22 08:36] VITALS: BP 166/98
[2024-07-22] MEDS: SIMETHICONE 80MG CHEW TAB PO PRN (12:44)
[2024-07-22] MEDS: LOPERAMIDE 2 MG CAPLET PO PRN (20:11)
[2024-07-23] MEDS ORDERED: AMLO1TAB24 PO (05:49)
[2024-07-23] MEDS ORDERED: SERT50TA29 PO (05:49)
[2024-07-23 06:47] VITALS: BP 178/98; TEMP 97.8; O2SAT 96
[2024-07-23 07:57] VITALS: BP 131/79
[2024-07-23 08:00] VITALS: BP 131/79
== END 2024-07-23 11:11 | disposition home or self-care (01) | DRG 754 ==
LOC: M ED 05:58 → M ED INP 10:43 → M PSY 12:34
PROVIDERS: ADMIT Psychiatry & Neurology Psychiatry; ATTEND Psychiatry & Neurology Psychiatry
DX: F32.A Depression, unspecified (principal); F41.9 Anxiety disorder, unspecified; R45.851 Suicidal ideations; I10 Essential (primary) hypertension; M10.9 Gout, unspecified; G40.909 Epilepsy, unspecified, not intractable, without status epilepticus; F17.210 Nicotine dependence, cigarettes, uncomplicated; Z87.891 Personal history of nicotine dependence; Z63.4 Disappearance and death of family member; Z88.6 Allergy status to analgesic agent